=== PATIENT | female | born 1955 | race Caucasian/White ===

== ENCOUNTER 2016-09-03 17:45 | Inpatient (IN) | payer MEDICAID, OTHER ==
--- NOTE | 2016-09-03 18:29 | EDM.PDOC ---
ED HPI GENERAL MEDICAL PROBLEM - General Chief Complaint: General Stated Complaint: LOW HEMOGLOBIN, SOB Time Seen by Provider: 09/03/16 18:20 Source of Information: Reports: Patient History Limitations: Reports: Other (Clinic closed by the time Helena arrived so not able to access clinic records. ) - History of Present Illness INITIAL COMMENTS - FREE TEXT/NARRATIVE: 61 yo female with pHx of chronic anemia had outpatient blood work done today. The provider who ordered these tests was off today and the covering provider did not know the patient so when her Hgb came back at 6.6 she was asked to come to the ED. Was last transfused within the month. Other test results from today's labs include Na 139, K 5.8, BUN 42, glc 131, Cl 99, others on her Chem 12 were wnl's. She denies black or bloody stools. Is perhaps slightly more SOB with exertion than normal otherwise feels fine. Is in a wheelchair most of the time and is on home oxygen. 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) (None) - Related Data Allergies Allergy/AdvReac Type Severity Reaction Status Date / Time levofloxacin Allergy Rash Verified 08/08/16 18:00 Penicillins Allergy Hives Verified 08/06/16 05:20 Sulfa (Sulfonamide Allergy Hives Verified 08/06/16 05:20 Antibiotics) Home Meds: Home Meds Albuterol [Proventil HFA] 2 puff INH Q4H PRN 11/19/13 [History] Glimepiride 4 mg PO BRK 11/19/13 [History] metFORMIN [Glucophage] 1,000 mg PO BIDM #0 tablet 01/22/14 [Rx] Fluticasone Propionate [Flovent HFA 220 MCG] 2 puff INH BID 10/14/14 [History] atorvaSTATin [Lipitor] 40 mg PO WITHDINNER 10/14/14 [History] Gabapentin [Neurontin] 600 mg PO BID@0800,1400 10/21/14 [History] Acetaminophen [Acetaminophen Extra Strength] 1,000 mg PO TID PRN 04/30/15 [ History] Gabapentin [Neurontin] 900 mg PO BEDTIME 04/30/15 [History] Polyethylene Glycol 3350 [MiraLAX] 17 gm PO DAILY PRN 04/30/15 [History] Ipratropium/Albuterol Sulfate [Iprat-Albut 0.5-3(2.5) MG/3 ML] 3 ml IH Q4HR PRN #30 05/08/15 [Rx] Pantoprazole [Protonix] 40 mg PO DAILY 07/17/15 [History] traMADol HCl [Tramadol HCl] 100 mg PO BID 07/17/15 [History] Iron Polysaccharide Complex [Ferrex 150] 150 mg PO TID 09/23/15 [History] Potassium Chloride [Klor-Con 10] 10 meq PO TID #60 tab.er 10/03/15 [Rx] Lisinopril [Prinivil] 2.5 mg PO DAILY 30 Days 02/12/16 [Rx] Metoprolol Succinate [Toprol XL] 12.5 mg PO DAILY 30 Days 02/12/16 [Rx] Furosemide [Lasix] 80 mg PO BID@08,14 03/24/16 [History] [place]-3/DHA/Epa/Fish Oil [Fish Oil 1,000 mg Softgel] 1,000 mg PO DAILY 03/24/16 [History] Spironolactone [Aldactone] 12.5 mg PO DAILY #30 tablet 03/28/16 [Rx] Metolazone 2.5 mg PO MOWEFR 07/30/16 [History] Prednisone [IJD: predniSONE] 20 mg PO BIDMEALS #10 tablet 08/05/16 [Rx] Azithromycin [Zithromax] 250 mg PO DAILY #2 tablet 08/11/16 [Rx] Nitrofurantoin Monohyd/M-Cryst [IJD: Nitrofurantoin [place]-MCR] 100 mg PO BID #16 capsule 08/11/16 [Rx] Prednisone [IJD: predniSONE] 20 mg PO DAILY #7 tablet 08/11/16 [Rx] Past Medical History HEENT History: Reports: None Cardiovascular History: Reports: Heart Failure, High cholesterol, Hypertension, SOB on exertion Respiratory History: Reports: Asthma, COPD, Pneumonia, recurrent, SOB, Other ( see below) Other Respiratory History: Is on hi flow O2 @ 8-10L/NC @ home. Gastrointestinal History: Reports: None Genitourinary History: Reports: Renal calculus Other Genitourinary History: surgery for bladder tumor removal, hx bladder CA. 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 Musculoskeletal History: Reports: Arthritis, Back pain, chronic, Fracture, RA Other Musculoskeletal History: hx fx R wrist & R ankle Neurological History: Reports: Neuropathy, diabetic, Neuropathy, peripheral Psychiatric History: Reports: Eating disorders Endocrine/Metabolic History: Reports: Diabetes, type II, Obesity/BMI 30+, Other (see below) Other Endocrine/Metabolic History: states thyroid problems Hematologic History: Reports: Anemia, Blood transfusion(s), Iron deficiency Immunologic History: Reports: None Oncologic (Cancer) History: Reports: Bladder Dermatologic History: Reports: Other (see below) Other Dermatologic History: fungus under bilat breast - Infectious Disease History Infectious Disease History: Reports: Chicken pox - Past Surgical History Head Surgeries/Procedures: Reports: None HEENT Surgical History: Reports: Adenoidectomy, Oral surgery, Tonsillectomy Cardiovascular Surgical History: Reports: None Respiratory Surgical History: Reports: None GI Surgical History: Reports: None Female Surgical History: Reports: Other (see below) Other Female Surgeries/Procedures: surg for bladder tumor Endocrine Surgical History: Reports: None Musculoskeletal Surgical History: Reports: None Oncologic Surgical History: Reports: None, Other (see below) Other Oncologic Surgeries/Procedures: bladder tumor removed Social & Family History - Family History Family Medical History: Noncontributory HEENT: Reports: Cataract, Hearing impairment, Macular degeneration Cardiac: Reports: None, CAD, Heart failure Respiratory: Reports: None GI: Reports: None : Reports: None OBGYN: Reports: Musculoskeletal: Reports: Arthritis, Back pain, chronic, RA Neurological: Reports: None Psychiatric: Reports: Depression Endocrine/Metabolic: Reports: Diabetes, type II Hematologic: Reports: None Immunologic: Reports: None Dermatologic: Reports: None Oncologic: Reports: Other (see below) Other Oncologic Family History: stomach - Tobacco Use Smoking Status *Q: Former Smoker Years of Tobacco use: 7 Packs/Tins Daily: 1 Used Tobacco, but Quit: Yes Month Tobacco Last Used: Second Hand Smoke Exposure: No - Caffeine Use Caffeine Use: Reports: Soda - Alcohol Use Days Per Week of Alcohol Use: 0 - Recreational Drug Use Recreational Drug Use: No - Living Situation & Occupation Living situation: Reports: single ED ROS GENERAL - Review of Systems Review Of Systems: See Below Constitutional: Reports: malaise, fatigue HEENT: Reports: No symptoms Respiratory: Reports: shortness of breath (with exertion only) Cardiovascular: Reports: No symptoms Endocrine: Reports: no symptoms GI/Abdominal: Reports: No symptoms : Reports: no symptoms Musculoskeletal: Reports: no symptoms Skin: Reports: no symptoms Neurological: Reports: no symptoms Psychiatric: Reports: No symptoms ED EXAM, GENERAL - Physical Exam Exam: See Below Exam Limited By: No limitations General Appearance: alert, WD/WN, no apparent distress Eye Exam: bilateral eye: other (mild conjunctival pallor) Ears: normal external exam, normal canal, hearing grossly normal Ear Exam: bilateral ear: auricle normal, canal normal Nose: normal inspection, normal mucosa, no blood Throat/Mouth: Normal inspection, Normal lips, Normal teeth, Normal oropharynx, Normal voice, No airway compromise Head: atraumatic, normocephalic Neck: normal inspection, supple Respiratory/Chest: no respiratory distress, lungs clear, normal breath sounds, no accessory muscle use Cardiovascular: regular rate, rhythm, no edema GI/Abdominal: normal bowel sounds, soft, non tender, no distention Back Exam: normal inspection Extremities: normal inspection, normal range of motion, non-tender, no pedal edema Neurological: alert, oriented, CN II-XII intact, normal cognition, no motor/ sensory deficits Psychiatric: normal affect, normal mood Skin Exam: Warm, Dry, Intact, No rash, Pallor Lymphatic: no adenopathy Departure - Departure Time of Disposition: 18:55 Disposition: Refer to Observation Condition: fair Clinical Impression: Hyperkalemia Anemia Qualifiers: Anemia type: unspecified type Qualified Code(s): D64.9 - Anemia, unspecified
[2016-09-03] MEDS ORDERED: Enoxaparin 40 MG/0.4 ML Syringe SUBCUT SCH (18:45)
[2016-09-03] MEDS ORDERED: Sodium Chloride 0.9% 1,000 ML IV SCH (18:45)
[2016-09-03] MEDS ORDERED: Polyethylene Glycol 3350 Powder 17 GM Packet PO PRN (18:49)
[2016-09-03] MEDS ORDERED: Metolazone 2.5 MG Tab PO SCH ×2 (19:00→21:00)
[2016-09-03] MEDS ORDERED: Sodium Chloride 0.9% 250 ML IV SCH ×3 (19:00→20:30)
[2016-09-03] MEDS ORDERED: FLUTICASONE PROPIONATE INH SCH (21:00)
[2016-09-03] MEDS: Iron Polysaccharides Complex 150 MG Cap PO SCH (21:47)
[2016-09-03] MEDS: metFORMIN 1,000 MG Tab PO SCH (21:47)
[2016-09-03] MEDS: Nitrofurantoin Monohydrate/Macrocrystalline 100 MG Cap PO SCH (21:48)
[2016-09-03] MEDS: traMADol 50 MG Tab PO SCH (21:49)
[2016-09-03] MEDS: Gabapentin 300 MG Cap PO SCH (21:51)
[2016-09-04] MEDS: Glimepiride 4 MG Tab PO SCH ×2 (00:15→15:12)
[2016-09-04] MEDS: Albuterol/Ipratropium 3.0-0.5 MG/3 ML Neb Soln NEB PRN ×3 (00:15→14:45)
[2016-09-04] MEDS ORDERED: Furosemide 40 MG Tab PO ONE (05:42)
[2016-09-04] MEDS ORDERED: Furosemide 40 MG Tab ONE (05:48)
[2016-09-04] MEDS ORDERED: predniSONE 20 MG Tab PO SCH ×2 (08:00→09:00)
[2016-09-04] MEDS ORDERED: Gabapentin 300 MG Cap PO SCH (08:00)
[2016-09-04] MEDS: Mometasone Furoate HFA 200 mcg/Puff 13 GM Inhaler INH SCH ×2 (08:37→20:55)
[2016-09-04] MEDS ORDERED: Pantoprazole 40 MG Tab.CR PO SCH (09:00)
[2016-09-04] MEDS ORDERED: Metoprolol Succinate 25 MG Tab.ER PO SCH (09:00)
[2016-09-04] MEDS ORDERED: Lidocaine 1% 20 ML MDV ONE (10:54)
[2016-09-04] MEDS ORDERED: Bupivacaine 0.5% 50 ML MDV ONE (10:55)
[2016-09-04] MEDS ORDERED: Ketamine 500 mg/10 ML MDV IV ONE (11:00)
[2016-09-04] MEDS ORDERED: ceFAZolin 1 GM Vial IV ONE (11:00)
[2016-09-04] MEDS ORDERED: Propofol 200 MG/20 ML SDV IV ONE (11:00)
[2016-09-04] MEDS ORDERED: Midazolam 1 MG/ML 2 ML SDV IV ONE (11:00)
[2016-09-04] MEDS ORDERED: Furosemide 20 MG/2 ML VIAL IVPUSH ONE ×2 (12:35→17:45)
[2016-09-04] MEDS: Sodium Chloride 0.9% 10 ML Syringe FLUSH PRN ×4 (14:25→21:22)
[2016-09-04] MEDS: Fish Oil/Omega-3 Fatty Acids 1 Gm Cap PO SCH (15:13)
[2016-09-04] MEDS: Iron Polysaccharides Complex 150 MG Cap PO SCH (15:13)
[2016-09-04] MEDS: Furosemide 80 MG Tab PO SCH (15:13)
[2016-09-04] MEDS: metFORMIN 1,000 MG Tab PO SCH ×2 (15:13→17:24)
[2016-09-04] MEDS: Lisinopril 2.5 MG Tab PO SCH (15:14)
[2016-09-04] MEDS: Nitrofurantoin Monohydrate/Macrocrystalline 100 MG Cap PO SCH (15:14)
[2016-09-04] MEDS: traMADol 50 MG Tab PO SCH (15:15)
--- NOTE | 2016-09-04 15:43 | OR ---
DATE OF OPERATION: 09/04/2016 SURGEON: Lizandro Myers MD PREOPERATIVE DIAGNOSIS: 1. Poor peripheral venous access. 2. Profound anemia. 3. Chronic obstructive pulmonary disease. 4. Congestive heart failure. OPERATION PERFORMED: Placement of Bard port permanent venous access device. INDICATIONS FOR SURGERY: This 61-year-old female with severe COPD has developed profound anemia. Peripheral venous access for blood transfusion is not able to be achieved and as this is likely a problem which will be faced repeatedly, placement of a permanent venous access catheter is planned. FINDINGS: The patient's right cephalic vein in the deltopectoral groove is of satisfactory quality. The catheter is able to be advanced into the superior vena cava without difficulty. PROCEDURE IN DETAIL: The patient was taken to the operating room. She was given intravenous sedation, and oxygen was administered to her via a BiPAP device. The patient was unable to lie flat, so she was positioned in a semi- sitting position. The right upper anterior chest was sterilely prepped and draped. The right infraclavicular region was infiltrated with the Xylocaine/Marcaine mix and a linear incision was made in the right infraclavicular area. Dissection proceeded down onto the deltopectoral groove where exploration of this space identified a cephalic vein is of satisfactory quality. The vein was secured proximally and distally by looping it with 3-0 silk ties. The small branch coming from posteriorly was also secured by looping it with a silk tie. An 8-[place] Bard port implantable port was then selected. The catheter and the tall introducer are irrigated with heparinized saline and then a small venotomy was made in the exposed right cephalic vein. With the help of a vein retractor, the 8-[place] polyurethane single-lumen catheter was able to be inserted into the vein, and then advanced without difficulty. C-arm fluoroscopy was then used to confirmed that the catheter passed into the superior vena cava and fluoroscopy confirmed the catheter appeared to be in satisfactory position, when it was at the 17 cm level at the venotomy. A subcutaneous pocket on the anterior surface of the pectorals major muscle was then made medially from this incision and the catheter was cut to the appropriate length and the port was attached to the catheter and the locking mechanism was secured. The port was then able to have blood easily aspirated and irrigated with heparinized saline. The port was then placed into the subcutaneous pocket and secured in four compass points with interrupted 0 Prolene suture securing it down to the underlying muscle. C-arm fluoroscopy again confirmed satisfactory positioning of the catheter. The wound was irrigated and then closed, approximating the subcutaneous tissue with interrupted 4-0 Vicryl. The skin with running 4-0 Vicryl subcuticular stitch, Steri-Strips and Benzoin. The port was accessed with a needle left in place. Antibiotic ointment and a sterile dressing was placed. The patient was then taken from the operating room in satisfactory condition. ESTIMATED BLOOD LOSS: 25 mL. COMPLICATIONS: None. PROGNOSIS: Immediate good remote guarded. /[id number] KOFFI/ROSIE
[2016-09-04] MEDS ORDERED: Sodium Chloride 0.9% 250 ML IV SCH (16:00)
--- NOTE | 2016-09-04 16:09 | CONS ---
DATE OF CONSULTATION: 09/03/2016 This 61-year-old female with severe COPD and CHF has been admitted today with profound anemia. She had hemoglobin of 6.4. Blood transfusion has been recommended, but peripheral venous access has been unable to be achieved. Multiple attempts from the nursing and anesthesia staff have been tried and a satisfactory IV cannot be achieved peripherally. This patient has a history of recurring problems with anemia. She required blood transfusions in the past and it is likely that she will require these again in the future. Options for venous access are reviewed and discussed with the patient. Placement of a central line is an option; however, since this appears to be recurring problem, and the patient has terrible peripheral veins. A permanent device which can be repeatedly accessed is felt to be a better option for her. I have recommended to her that we would place a Bard port permanent venous access device, which will provide her with the intravenous access necessary now and in the future, and the patient agrees to this. I reviewed the procedure with the patient. Discussed indications and options as well as risks of the procedure and the patient agrees to proceed. This will be scheduled for tomorrow morning. /[id number] KOFFI/ROSIE
[2016-09-04] MEDS: traMADol 50 MG Tab PO PRN ×2 (17:16→23:04)
[2016-09-04] MEDS: Heparin Sodium 10 Units/ML 5 ML Syringe FLUSH PRN ×2 (20:30→21:21)
[2016-09-04] MEDS: Enoxaparin 40 MG/0.4 ML Syringe SUBCUT SCH (20:55)
[2016-09-04] MEDS: Gabapentin 300 MG Cap PO SCH (22:20)
[2016-09-05] MEDS: traMADol 50 MG Tab PO PRN ×4 (05:06→23:09)
[2016-09-05] MEDS: Albuterol/Ipratropium 3.0-0.5 MG/3 ML Neb Soln NEB PRN (07:27)
[2016-09-05] MEDS: metFORMIN 1,000 MG Tab PO SCH (07:58)
[2016-09-05] MEDS: Sodium Chloride 0.9% 10 ML Syringe FLUSH PRN ×5 (08:03→19:24)
[2016-09-05] MEDS: Heparin Sodium 10 Units/ML 5 ML Syringe FLUSH PRN ×3 (08:03→19:25)
[2016-09-05] MEDS ORDERED: Acetaminophen 500 MG Tab PO ONE (10:15)
--- NOTE | 2016-09-05 10:45 | PN ---
DATE SEEN: 09/05/2016 Helena Camargo is a 61-year-old female, admitted with complicated anemia. Hemoglobin had fallen to 6.8. Two units of blood were given yesterday after IV access was placed and a central line per Dr. Myers. Doing well in that regard. Profound hypoxia when sleep, Pickwickian syndrome, BiPAP recommended. Patient deferred, high-dose flow O2 has been required. Hemoglobin after transfusion 8.1 and last evening, 8.1 this morning. Two units to be given today as planned, hemoglobin and hematocrit to follow accordingly. She is otherwise been doing well and had a pretty restful night. Generalized back pain particularly not controlled, on tramadol 100 mg q.i.d., Tylenol will be added 1000 mg t.i.d. Her GI workup discussed, patient deferred colonoscopy. PHYSICAL EXAMINATION: VITAL SIGNS: 102.7, 39 kilos, 36.8, 91 is the pulse, 114/56, 22 is the respiration, 88% on 12 L. GENERAL: Obvious obese, Pickwickian looking. NECK: Benign. Thyroid small. Short neck. CHEST: Decreased breath sounds both bases. HEART: Distant heart sounds without ectopy or murmur. ABDOMEN: Rotund, obese. ASSESSMENT: 1. Anemia complicated, source uncertain. 2. Transfusions in place, 2 units, hemoglobin 8.1, 2 units to follow, hemoglobin follow. 3. Respiratory care in place. Discharge planning and social services counselor to be involved. /[id number] HEMALATHA/ROSIE
[2016-09-05] MEDS ORDERED: Furosemide 20 MG/2 ML VIAL IVPUSH ONE (13:45)
[2016-09-05] MEDS: Acetaminophen 500 MG Tab PO SCH ×2 (13:59→20:44)
[2016-09-05] MEDS: metFORMIN 500 MG Tab.ER PO SCH (17:44)
[2016-09-05] MEDS ORDERED: metFORMIN 500 MG Tab ONE (17:47)
[2016-09-05] MEDS ORDERED: metFORMIN 500 MG Tab.ER ONE (17:52)
[2016-09-05] MEDS ORDERED: Glimepiride 2 MG Tab ONE (17:57)
[2016-09-05] MEDS ORDERED: Glimepiride 2 MG Tab PO SCH (18:00)
[2016-09-05] MEDS: Ondansetron 4 MG Tab.DIS PO PRN (18:36)
[2016-09-05] MEDS: Enoxaparin 40 MG/0.4 ML Syringe SUBCUT SCH (20:43)
[2016-09-06] MEDS: Pantoprazole 40 MG Tab.CR PO SCH (05:13)
[2016-09-06] MEDS: traMADol 50 MG Tab PO PRN ×3 (05:14→19:25)
[2016-09-06] MEDS ORDERED: Metolazone 2.5 MG Tab PO SCH (06:00)
[2016-09-06] MEDS: Albuterol/Ipratropium 3.0-0.5 MG/3 ML Neb Soln NEB PRN ×2 (07:23→13:09)
--- NOTE | 2016-09-06 07:37 | PCM.PN ---
- General Info Date of Service: 09/06/16 Admission Dx/Problem (Free Text): Patient states she's feeling okay today except for she has some right rib pain. She states when she went to the OR she felt a little twinge or crack when she went to the bed. She is having some pain in the right ribs. She always is short of breath and that's different. She has history of anemia she does not know the cause. She's had transfusions in the past. She denies dizziness, chest pain, leg swelling. - Patient Data Vitals - most recent: Last Vital Signs Temp 98.1 F 09/06/16 05:00 Pulse 99 09/06/16 05:00 Resp 20 09/06/16 05:00 BP 110/52 L 09/06/16 05:00 Pulse Ox 91 L 09/06/16 05:00 Weight - most recent: 227 lb 11.2 oz I&O - last 24 hours: Intake & Output 09/05/16 09/06/16 09/06/16 22:59 06:59 14:59 Intake Total 540 300 Output Total 750 600 Balance -210 -300 Lab Results last 24 hrs: Laboratory Results - last 24 hr 09/05/16 09/05/16 09/05/16 Range/Units 08:00 12:03 16:59 WBC 7.7 (4.5-12.0) X10-3/uL RBC 2.82 L (3.23-5.20) x10(6)uL Hgb 8.1 L (11.5-15.5) g/dL Hct 24.6 L (30.0-51.3) % MCV 87.3 (80-96) fL MCH 28.7 (27.7-33.6) pg MCHC 32.8 (32.2-35.4) g/dL RDW 18.3 H (11.5-15.5) % Plt Count 301 (125-369) X10(3)uL MPV 10.0 (7.4-10.4) fL Neut % (Auto) 72.7 (46-82) % Lymph % (Auto) 17.1 (13-37) % [place] % (Auto) 7.0 (4-12) % Eos % (Auto) 1 (1.0-5.0) % Baso % (Auto) 2 (0-2) % Neut # 5.7 (1.6-8.3) # Lymph # 1.3 (0.6-5.0) # [place] # 0.5 (0.0-1.3) # Eos # 0.1 (0.0-0.8) # Baso # 0.1 (0.0-0.2) # POC Glucose 117 H 123 H (80-116) mg/dL Vitamin B12 (211-911) pg/mL 09/05/16 09/05/16 09/06/16 Range/Units 19:15 19:15 07:26 WBC (4.5-12.0) X10-3/uL RBC (3.23-5.20) x10(6)uL Hgb 9.8 L (11.5-15.5) g/dL Hct 30.9 (30.0-51.3) % MCV (80-96) fL MCH (27.7-33.6) pg MCHC (32.2-35.4) g/dL RDW (11.5-15.5) % Plt Count (125-369) X10(3)uL MPV (7.4-10.4) fL Neut % (Auto) (46-82) % Lymph % (Auto) (13-37) % [place] % (Auto) (4-12) % Eos % (Auto) (1.0-5.0) % Baso % (Auto) (0-2) % Neut # (1.6-8.3) # Lymph # (0.6-5.0) # [place] # (0.0-1.3) # Eos # (0.0-0.8) # Baso # (0.0-0.2) # POC Glucose 73 L (80-116) mg/dL Vitamin B12 421.0 (211-911) pg/mL Med Orders - Current: Current Medications Acetaminophen (Tylenol Extra Strength) 1,000 mg PO TID PRN PRN Reason: Pain Acetaminophen (Tylenol Extra Strength) 1,000 mg PO TID FRANSISCA Last Admin: 09/05/16 20:44 Dose: 1,000 mg Albuterol (Ventolin Hfa) 0 gm INH Q4H PRN PRN Reason: Shortness of Breath Albuterol/Ipratropium (Duoneb 3.0-0.5 Mg/3 Ml) 3 ml NEB Q6H PRN PRN Reason: Shortness of Breath Last Admin: 09/06/16 07:23 Dose: 3 ml Atorvastatin Calcium (Lipitor) 40 mg PO WITHDINNER [facility] Enoxaparin Sodium (Lovenox) 40 mg SUBCUT DAILY@2100 [facility] Last Admin: 09/05/16 20:43 Dose: 40 mg Fish Oil (Fish Oil) 1 gm PO DAILY [facility] Last Admin: 09/04/16 15:13 Dose: Not Given Furosemide (Lasix) 80 mg PO BID@08,14 [facility] Last Admin: 09/04/16 15:13 Dose: Not Given Furosemide (Lasix) 20 mg IVPUSH DAILY [facility] Glimepiride (Glimepiride) 4 mg PO BIDMEALS [facility] Heparin Sodium (Porcine) (Heparin Lock Flush 10 Units/Ml) 50 unit FLUSH ASDIRECTED PRN PRN Reason: port-a cath flush Last Admin: 09/05/16 19:25 Dose: 50 unit Sodium Chloride (Normal Saline) 250 mls @ 100 mls/hr IV ASDIRECTED [facility] Last Admin: 09/04/16 14:30 Dose: 100 mls/hr Lisinopril (Prinivil) 2.5 mg PO DAILY [facility] Metformin HCl (Glucophage Xr) 1,000 mg PO BIDMEALS [facility] Last Admin: 09/05/16 17:44 Dose: 1,000 mg Ondansetron HCl (Zofran Odt) 4 mg PO Q4H PRN PRN Reason: Nausea/Vomiting Last Admin: 09/05/16 18:36 Dose: 4 mg Pantoprazole Sodium (Protonix) 40 mg PO 0600 [facility] Last Admin: 09/06/16 05:13 Dose: 40 mg Polysaccharide Iron Complex (Ferrex 150) 150 mg PO TID [facility] Last Admin: 09/04/16 15:13 Dose: Not Given Sodium Chloride (Saline Flush) 10 ml FLUSH ASDIRECTED PRN PRN Reason: Keep Vein Open Last Admin: 09/05/16 19:24 Dose: 10 ml Tramadol HCl (Ultram) 100 mg PO Q6H PRN PRN Reason: Pain Last Admin: 09/06/16 05:14 Dose: 100 mg Discontinued Medications Acetaminophen (Tylenol Extra Strength) 1,000 mg PO ONETIME ONE Stop: 09/05/16 10:16 Last Admin: 09/05/16 10:07 Dose: 1,000 mg Bupivacaine HCl (Marcaine 0.5%) 10 ml .XX .STK-MED ONE Stop: 09/04/16 10:56 Last Admin: 09/04/16 10:55 Dose: 10 ml Enoxaparin Sodium (Lovenox) 40 mg SUBCUT DAILY [facility] Last Admin: 09/03/16 21:47 Dose: 40 mg Furosemide (Lasix) 40 mg PO ONETIME ONE Stop: 09/04/16 05:43 Last Admin: 09/04/16 05:53 Dose: 40 mg Furosemide (Lasix) Confirm Administered Dose 40 mg .ROUTE .STK-MED ONE Stop: 09/04/16 05:49 Last Admin: 09/04/16 05:52 Dose: Not Given Furosemide (Lasix) 20 mg IVPUSH ASDIRECTED ONE Stop: 09/04/16 12:36 Last Admin: 09/04/16 17:38 Dose: Not Given Furosemide (Lasix) 20 mg IVPUSH ASDIRECTED ONE Stop: 09/04/16 17:46 Last Admin: 09/04/16 17:37 Dose: 20 mg Furosemide (Lasix) 20 mg IVPUSH ONETIME ONE Stop: 09/05/16 13:46 Last Admin: 09/05/16 13:59 Dose: 20 mg Gabapentin (Neurontin) 600 mg PO BID@0800,1400 [facility] Last Admin: 09/04/16 15:13 Dose: Not Given Gabapentin (Neurontin) 900 mg PO BEDTIME [facility] Last Admin: 09/04/16 22:20 Dose: 900 mg Glimepiride (Glimepiride) 4 mg PO BRK [facility] Last Admin: 09/04/16 15:12 Dose: Not Given Glimepiride (Amaryl) 4 mg PO BIDMEALS [facility] Last Admin: 09/05/16 17:54 Dose: 4 mg Glimepiride (Amaryl) Confirm Administered Dose 2 mg .ROUTE .STK-MED ONE Stop: 09/05/16 17:58 Last Admin: 09/05/16 19:22 Dose: Not Given Heparin Sodium (Porcine) (Heparin Lock Flush 100 Units/Ml Syringe) 10 units .XX .STK-MED ONE Stop: 09/04/16 10:54 Last Admin: 09/04/16 10:53 Dose: 10 units Sodium Chloride (Normal Saline) 1,000 mls @ 50 mls/hr IV ASDIRECTED [facility] Last Admin: 09/03/16 19:16 Dose: 50 mls/hr Sodium Chloride (Normal Saline) 250 mls @ 100 mls/hr IV ASDIRECTED FRANSISCA Sodium Chloride (Normal Saline) 250 mls @ 100 mls/hr IV ASDIRECTED FRANSISCA Sodium Chloride (Normal Saline) 250 mls @ 100 mls/hr IV ASDIRECTED FRANSISCA Lidocaine HCl (Xylocaine 1%) 10 ml .XX .STK-MED ONE Stop: 09/04/16 10:55 Last Admin: 09/04/16 10:54 Dose: 10 ml Lisinopril (Prinivil) 2.5 mg PO DAILY [facility] Last Admin: 09/04/16 15:14 Dose: Not Given Metformin HCl (Glucophage) [facility] [place] Admin: 09/05/16 07:58 Dose: 1,000 mg Metformin HCl (Glucophage) Confirm Administered Dose 500 mg .ROUTE .STK-MED ONE Stop: 09/05/16 17:48 Last Admin: 09/05/16 19:22 Dose: Not Given Metformin HCl (Glucophage Xr) Confirm Administered Dose 500 mg .ROUTE .K-MED ONE Stop: 09/05/16 17:53 Last Admin: 09/05/16 19:21 Dose: Not Given Metolazone (Zaroxolyn) 2.5 mg PO MOWEFR [facility] Last Admin: 09/04/16 01:22 Dose: Not Given Metolazone (Zaroxolyn) 2.5 mg PO MOWEFR [facility] Last Admin: 09/03/16 21:51 Dose: 2.5 mg Metolazone (Zaroxolyn) 2.5 mg PO MoWeFr@0600 [facility] Metoprolol Succinate (Toprol Xl) 12.5 mg PO DAILY [facility] Last Admin: 09/04/16 15:14 Dose: Not Given Mometasone Furoate (Asmanex Hfa) 0 gm INH BID [facility] Last Admin: 09/04/16 20:55 Dose: 2 applic Nitrofurantoin Macrocrystals (Macrobid) 100 mg PO BID [facility] Last Admin: 09/04/16 15:14 Dose: Not Given Non-Formulary Medication (Fluticasone Propionate [Flovent Hfa 220 Mcg]) 2 puff INH BID [facility] Last Admin: 09/04/16 00:15 Dose: Not Given Pantoprazole Sodium (Protonix) 40 mg PO DAILY [facility] Last Admin: 09/04/16 15:14 Dose: Not Given Polyethylene Glycol (Miralax) 17 gm PO DAILY PRN PRN Reason: Constipation Prednisone (Prednisone) 20 mg PO BIDMEALS [facility] Prednisone (Prednisone) 20 mg PO DAILY [facility] Tramadol HCl (Ultram) 100 mg PO BID [facility] Last Admin: 09/04/16 15:15 Dose: Not Given Tramadol HCl (Ultram) 100 mg PO Q6H PRN PRN Reason: Pain Last Admin: 09/05/16 05:06 Dose: 100 mg - Exam General: alert, oriented, cooperative Neck: supple Lungs: Clear to auscultation, Normal respiratory effort. No: Crackles, Rales, Rhonchi Cardiovascular: regular rate, regular rhythm, no murmurs Extremities: no edema - Problem List & Annotations (1) Anemia SNOMED Code(s): 144262925 Code(s): D64.9 - ANEMIA, UNSPECIFIED Status: Acute Current Visit: Yes Qualifiers: Anemia type: unspecified type Qualified Code(s): D64.9 - Anemia, unspecified (2) CHF (congestive heart failure) SNOMED Code(s): 83711404 Code(s): I50.9 - HEART FAILURE, UNSPECIFIED Status: Acute Priority: High Current Visit: No Qualifiers: Congestive heart failure chronicity: chronic Annotation/Comment:: On oral diuretics, dieuresing well. CXR improved. Had long discussion regarding fluid restriction, monitoring weights and adding in diuretics if weight increases. (3) COPD (chronic obstructive pulmonary disease) SNOMED Code(s): 91835226 Code(s): J44.9 - CHRONIC OBSTRUCTIVE PULMONARY DISEASE, UNSPECIFIED Status : Acute Current Visit: No Qualifiers: COPD type: unspecified COPD Qualified Code(s): J44.9 - Chronic obstructive pulmonary disease, unspecified - Problem List Review Problem List Initiated/Reviewed/Updated: Yes - My Orders Last 24 Hours: My Active Orders 09/06/16 07:32 HEMOGLOBIN/HEMATOCRIT,HH [HEME] Routine - Plan Plan:: 1. Recheck hemoglobin/hematocrit today. 2. Transfer patient to the floor and out of ICU. 3. Waiting for iron studies to be done. 4. I told the patient she should have a bone marrow done in the future. She refuses.
[2016-09-06] MEDS: Glimepiride 4 MG Tab PO SCH ×3 (08:41→18:30)
[2016-09-06] MEDS: Acetaminophen 500 MG Tab PO SCH ×3 (08:41→20:59)
[2016-09-06] MEDS: metFORMIN 500 MG Tab.ER PO SCH ×2 (08:41→18:30)
[2016-09-06] MEDS: Lisinopril 2.5 MG Tab PO SCH ×2 (08:41→09:00)
--- NOTE | 2016-09-06 08:56 | HP ---
ADMISSION DATE: 09/03/2016 HISTORY OF PRESENT ILLNESS: Helena Camargo is a 61-year-old single female, who was seen at [facility]. Troublesome shortness of breath, lethargy, weakness, home health provided testing. Hemoglobin markedly low. Admission hospitalist indicated through [facility]. HOME MEDICATIONS: Please see med recon list. PAST MEDICAL HISTORY: Significant for previous bladder carcinoma under surveillance, tonsillectomy and adenoidectomy as a child. Chronic illnesses include COPD, hypertension, type 2 diabetes mellitus, neuropathic lower extremity, neuropathy, and marked obesity. No other operative procedures, hospitalizations, unusual childhood diseases, major injuries, or fractures. 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 Quit smoking in 2008. Nil alcohol consumption. No illicit drug use. FAMILY HISTORY: Positive for diabetes mellitus, early heart disease. No inheritable cancers. REVIEW OF SYSTEMS: CONSTITUTIONAL: Feeling poorly and weak. HEENT: Eyes: Sees well with correction. Ears: Hears well with some difficulty in crowds. Oropharynx poor dentition. CHEST: No cough, wheeze, or congestion. Cardiovascular: Denies chest pain, palpitations, or syncope. GASTROINTESTINAL: Recurrent blood in stools, previous non workup. SKIN: No open sores or lesions. ENDOCRINE: No excessive thirst or urination. No diabetes. PHYSICAL EXAMINATION: VITAL SIGNS: Stable. 36.9, 82, 91/53, 22, 98% on 2 L. IMAGING: Chest x-ray none noted. LABORATORY STUDIES: Occult blood negative. ASSESSMENT: 1. Complicated anemia, hemoglobin 6.4, recurrent rectal bleeding. 2. Multiple medical problems, clearly defined. PLAN: Intravenous line has been unobtainable, blood has been ordered, we will proceed with intervention and care, close observation, laboratory studies to follow. /[id number] HEMALATHA/ROSIE
[2016-09-06] MEDS: Mometasone Furoate HFA 200 mcg/Puff 13 GM Inhaler INH SCH (09:00)
[2016-09-06] MEDS ORDERED: Furosemide 20 MG/2 ML VIAL IVPUSH SCH (09:00)
[2016-09-06] MEDS: Ondansetron 4 MG Tab.DIS PO PRN ×3 (11:51→20:39)
--- NOTE | 2016-09-06 11:57 | CR ---
INDICATION: Line positioning. COMPARISON: No pertinent priors. CHEST, SINGLE VIEW: Right side [id number] is present. The tip extends toward the expected location of the distal SVC near the junction with the right atrium. Otherwise, evaluation of the lungs is limited to overlying tissues, but the heart appears prominent size, and there is some nodular opacity right hilar region. Findings could be better assessed with follow-up to the chest x- ray or CT if it would change clinical management. IMPRESSION: Right side [id number] is present with tip at distal SVC near the junction with the right atrium. MTDD
[2016-09-06] MEDS: Iron Polysaccharides Complex 150 MG Cap PO SCH ×2 (14:03→21:00)
[2016-09-06] MEDS: Furosemide 80 MG Tab PO SCH (14:03)
[2016-09-06] MEDS: Heparin Sodium 10 Units/ML 5 ML Syringe FLUSH PRN (15:36)
[2016-09-06] MEDS: Sodium Chloride 0.9% 10 ML Syringe FLUSH PRN (15:36)
[2016-09-06] MEDS: atorvaSTATin 40 MG Tab PO SCH (18:31)
[2016-09-06] MEDS: Enoxaparin 40 MG/0.4 ML Syringe SUBCUT SCH (21:00)
[2016-09-07] MEDS: traMADol 50 MG Tab PO PRN ×3 (03:28→17:31)
[2016-09-07] MEDS: Acetaminophen 500 MG Tab PO PRN (06:04)
[2016-09-07] MEDS: Pantoprazole 40 MG Tab.CR PO SCH (06:04)
[2016-09-07] MEDS: Glimepiride 4 MG Tab PO SCH (08:19)
[2016-09-07] MEDS: metFORMIN 500 MG Tab.ER PO SCH (08:19)
[2016-09-07] MEDS: Furosemide 80 MG Tab PO SCH ×2 (08:20→14:12)
[2016-09-07] MEDS: Fish Oil/Omega-3 Fatty Acids 1 Gm Cap PO SCH (08:21)
[2016-09-07] MEDS: Iron Polysaccharides Complex 150 MG Cap PO SCH ×3 (08:21→21:22)
[2016-09-07] MEDS ORDERED: Furosemide 40 MG Tab PO ONE (08:27)
[2016-09-07] MEDS: Lisinopril 2.5 MG Tab PO SCH (08:29)
[2016-09-07] MEDS: Acetaminophen 500 MG Tab PO SCH ×3 (08:30→21:23)
--- NOTE | 2016-09-07 09:10 | PCM.PN ---
- General Info Date of Service: 09/07/16 Admission Dx/Problem (Free Text): Patient states that her breathing is a worse today. She has some abdominal discomfort last night. She has some right upper quadrant abdominal discomfort. She said BMs with no blood according to her. No nausea or vomiting. No coughing or fevers. - Patient Data Vitals - most recent: Last Vital Signs Temp 97.3 F 09/07/16 07:45 Pulse 86 09/07/16 07:45 Resp 20 09/07/16 07:45 BP 83/44 L 09/07/16 08:37 Pulse Ox 90 L 09/07/16 07:45 Weight - most recent: 226 lb 1.6 oz I&O - last 24 hours: Intake & Output 09/06/16 09/07/16 09/07/16 22:59 06:59 14:59 Intake Total 100 100 100 Output Total 475 100 Balance -375 0 100 Lab Results last 24 hrs: Laboratory Results - last 24 hr 09/06/16 09/06/16 09/07/16 Range/Units 11:27 18:25 05:54 Hgb (11.5-15.5) g/dL Hct (30.0-51.3) % POC Glucose 172 H D 116 32 L* D (80-116) mg/dL 09/07/16 09/07/16 09/07/16 Range/Units 06:30 06:48 07:34 Hgb 8.5 L (11.5-15.5) g/dL Hct 26.6 L (30.0-51.3) % POC Glucose 54 L 87 (80-116) mg/dL Med Orders - Current: Current Medications Acetaminophen (Tylenol Extra Strength) 1,000 mg PO TID PRN PRN Reason: Pain Last Admin: 09/07/16 06:04 Dose: 1,000 mg Acetaminophen (Tylenol Extra Strength) 1,000 mg PO TID FRANSISCA Last Admin: 09/07/16 08:30 Dose: 1,000 mg Albuterol (Ventolin Hfa) 0 gm INH Q4H PRN PRN Reason: Shortness of Breath Albuterol/Ipratropium (Duoneb 3.0-0.5 Mg/3 Ml) 3 ml NEB Q6H PRN PRN Reason: Shortness of Breath Last Admin: 09/06/16 13:09 Dose: 3 ml Atorvastatin Calcium (Lipitor) 40 mg PO WITHDINNER [facility] Last Admin: 09/06/16 18:31 Dose: 40 mg Enoxaparin Sodium (Lovenox) 40 mg SUBCUT DAILY@2100 [facility] Last Admin: 09/06/16 21:00 Dose: 40 mg Fish Oil (Fish Oil) 1 gm PO DAILY [facility] Last Admin: 09/07/16 08:21 Dose: 1 gm Furosemide (Lasix) 80 mg PO BID@08,14 [facility] Last Admin: 09/07/16 08:20 Dose: Not Given Glimepiride (Glimepiride) 4 mg PO BIDMEALS [facility] Last Admin: 09/07/16 08:19 Dose: 4 mg Heparin Sodium (Porcine) (Heparin Lock Flush 10 Units/Ml) 50 unit FLUSH ASDIRECTED PRN PRN Reason: port-a cath flush Last Admin: 09/06/16 15:36 Dose: 50 unit Sodium Chloride (Normal Saline) 250 mls @ 100 mls/hr IV ASDIRECTED [facility] Last Admin: 09/04/16 14:30 Dose: 100 mls/hr Lisinopril (Prinivil) 2.5 mg PO DAILY [facility] Last Admin: 09/07/16 08:29 Dose: 2.5 mg Metformin HCl (Glucophage Xr) 1,000 mg PO BIDMEALS [facility] Last Admin: 09/07/16 08:19 Dose: 1,000 mg Ondansetron HCl (Zofran Odt) 4 mg PO Q4H PRN PRN Reason: Nausea/Vomiting Last Admin: 09/06/16 20:39 Dose: 4 mg Pantoprazole Sodium (Protonix) 40 mg PO 0600 [facility] Last Admin: 09/07/16 06:04 Dose: 40 mg Polysaccharide Iron Complex (Ferrex 150) 150 mg PO TID [facility] Last Admin: 09/07/16 08:21 Dose: 150 mg Sodium Chloride (Saline Flush) 10 ml FLUSH ASDIRECTED PRN PRN Reason: Keep Vein Open Last Admin: 09/06/16 15:36 Dose: 10 ml Tramadol HCl (Ultram) 100 mg PO Q6H PRN PRN Reason: Pain Last Admin: 09/07/16 03:28 Dose: 100 mg Discontinued Medications Acetaminophen (Tylenol Extra Strength) 1,000 mg PO ONETIME ONE Stop: 09/05/16 10:16 Last Admin: 09/05/16 10:07 Dose: 1,000 mg Bupivacaine HCl (Marcaine 0.5%) 10 ml .XX .STK-MED ONE Stop: 09/04/16 10:56 Last Admin: 09/04/16 10:55 Dose: 10 ml Enoxaparin Sodium (Lovenox) 40 mg SUBCUT DAILY [facility] Last Admin: 09/03/16 21:47 Dose: 40 mg Furosemide (Lasix) 40 mg PO ONETIME ONE Stop: 09/04/16 05:43 Last Admin: 09/04/16 05:53 Dose: 40 mg Furosemide (Lasix) Confirm Administered Dose 40 mg .ROUTE .[facility] ONE Stop: 09/04/16 05:49 Last Admin: 09/04/16 05:52 Dose: Not Given Furosemide (Lasix) 20 mg IVPUSH ASDIRECTED ONE Stop: 09/04/16 12:36 Last Admin: 09/04/16 17:38 Dose: Not Given Furosemide (Lasix) 20 mg IVPUSH ASDIRECTED ONE Stop: 09/04/16 17:46 Last Admin: 09/04/16 17:37 Dose: 20 mg Furosemide (Lasix) 20 mg IVPUSH DAILY [facility] Last Admin: 09/06/16 08:40 Dose: 20 mg Furosemide (Lasix) 20 mg IVPUSH ONETIME ONE Stop: 09/05/16 13:46 Last Admin: 09/05/16 13:59 Dose: 20 mg Furosemide (Lasix) 40 mg PO ONETIME ONE Stop: 09/07/16 08:28 Last Admin: 09/07/16 08:34 Dose: 40 mg Gabapentin (Neurontin) 600 mg PO BID@0800,1400 [facility] Last Admin: 09/04/16 15:13 Dose: Not Given Gabapentin (Neurontin) 900 mg PO BEDTIME [facility] Last Admin: 09/04/16 22:20 Dose: 900 mg Glimepiride (Glimepiride) 4 mg PO BRK [facility] Last Admin: 09/06/16 09:00 Dose: Not Given Glimepiride (Amaryl) 4 mg PO BIDMEALS [facility] Last Admin: 09/05/16 17:54 Dose: 4 mg Glimepiride (Amaryl) Confirm Administered Dose 2 mg .ROUTE .STK-MED ONE Stop: 09/05/16 17:58 Last Admin: 09/05/16 19:22 Dose: Not Given Heparin Sodium (Porcine) (Heparin Lock Flush 100 Units/Ml Syringe) 10 units .XX .[facility] ONE Stop: 09/04/16 10:54 Last Admin: 09/04/16 10:53 Dose: 10 units Sodium Chloride (Normal Saline) 1,000 mls @ 50 mls/hr IV ASDIRECTED [facility] Last Admin: 09/03/16 19:16 Dose: 50 mls/hr Sodium Chloride (Normal Saline) 250 mls @ 100 mls/hr IV ASDIRECTED FRANSISCA Sodium Chloride (Normal Saline) 250 mls @ 100 mls/hr IV ASDIRECTED FRANSISCA Sodium Chloride (Normal Saline) 250 mls @ 100 mls/hr IV ASDIRECTED FRANSISCA Lidocaine HCl (Xylocaine 1%) 10 ml .XX .[facility] ONE Stop: 09/04/16 10:55 Last Admin: 09/04/16 10:54 Dose: 10 ml Lisinopril (Prinivil) 2.5 mg PO DAILY [facility] Last Admin: 09/06/16 09:00 Dose: Not Given Metformin HCl (Glucophage) 1,000 mg PO BIDM [facility] Last Admin: 09/05/16 07:58 Dose: 1,000 mg Metformin HCl (Glucophage) Confirm Administered Dose 500 mg .ROUTE .[facility] ONE Stop: 09/05/16 17:48 Last Admin: 09/05/16 19:22 Dose: Not Given Metformin HCl (Glucophage Xr) Confirm Administered Dose 500 mg .ROUTE .[facility] ONE Stop: 09/05/16 17:53 Last Admin: 09/05/16 19:21 Dose: Not Given Metolazone (Zaroxolyn) 2.5 mg PO MOWEFR [facility] Last Admin: 09/04/16 01:22 Dose: Not Given Metolazone (Zaroxolyn) 2.5 mg PO MOWEFR [facility] Last Admin: 09/03/16 21:51 Dose: 2.5 mg Metolazone (Zaroxolyn) 2.5 mg PO MoWeFr@0600 [facility] Metoprolol Succinate (Toprol Xl) 12.5 mg PO DAILY [facility] Last Admin: 09/04/16 15:14 Dose: Not Given Mometasone Furoate (Asmanex Hfa) 0 gm INH BID [facility] Last Admin: 09/06/16 09:00 Dose: Not Given Nitrofurantoin Macrocrystals (Macrobid) 100 mg PO BID [facility] Last Admin: 09/04/16 15:14 Dose: Not Given Non-Formulary Medication (Fluticasone Propionate [Flovent Hfa 220 Mcg]) 2 puff INH BID [facility] Last Admin: 09/04/16 00:15 Dose: Not Given Pantoprazole Sodium (Protonix) 40 mg PO DAILY [facility] Last Admin: 09/04/16 15:14 Dose: Not Given Polyethylene Glycol (Miralax) 17 gm PO DAILY PRN PRN Reason: Constipation [facility] Prednisone (Prednisone) 20 mg PO DAILY [facility] Tramadol HCl (Ultram) 100 mg PO BID [facility] Last Admin: 09/04/16 15:15 Dose: Not Given Tramadol HCl (Ultram) 100 mg PO Q6H PRN PRN Reason: Pain Last Admin: 09/05/16 05:06 Dose: 100 mg - Exam General: alert, oriented, cooperative Neck: supple Lungs: Clear to auscultation, Normal respiratory effort Cardiovascular: regular rate, regular rhythm, no murmurs Abdomen: bowel sounds present, soft, no tenderness, no distension. No: rebound , guarding, tenderness, distension Extremities: no edema - Problem List & Annotations (1) Anemia SNOMED Code(s): 781868891 Code(s): D64.9 - ANEMIA, UNSPECIFIED Status: Acute Current Visit: Yes Qualifiers: Anemia type: unspecified type Qualified Code(s): D64.9 - Anemia, unspecified (2) CHF (congestive heart failure) SNOMED Code(s): 02577185 Code(s): I50.9 - HEART FAILURE, UNSPECIFIED Status: Acute Priority: High Current Visit: No Qualifiers: Congestive heart failure chronicity: chronic Annotation/Comment:: On oral diuretics, dieuresing well. CXR improved. Had long discussion regarding fluid restriction, monitoring weights and adding in diuretics if weight increases. (3) COPD (chronic obstructive pulmonary disease) SNOMED Code(s): 73510797 Code(s): J44.9 - CHRONIC OBSTRUCTIVE PULMONARY DISEASE, UNSPECIFIED Status : Acute Current Visit: No Qualifiers: COPD type: unspecified COPD Qualified Code(s): J44.9 - Chronic obstructive pulmonary disease, unspecified - Problem List Review Problem List Initiated/Reviewed/Updated: Yes - My Orders Last 24 Hours: My Active Orders 09/06/16 09:40 Consult to Occupational Therapy [OT Evaluation and Treatment] [CONS] Routine Consult to Physical Therapy [PT Evaluation and Treatment] [CONS] Routine - Plan Plan:: 1. Give 2 more units of blood today. 2. Continue PT/OT. 3. H&H in a.m. 4. Discussed the condition with the patient. She refuses colonoscopy also. She refuses any bowel exam. She states she had an EGD about a year ago by Dr. Camargo and that was negative.
[2016-09-07] MEDS ORDERED: Sodium Chloride 0.9% 250 ML IV SCH (09:15)
[2016-09-07] MEDS ORDERED: Furosemide 20 MG/2 ML VIAL IVPUSH ONE (13:00)
[2016-09-07] MEDS ORDERED: 50% Dextrose in Water 50 ML Syringe IVPUSH ONE ×2 (14:07→16:41)
[2016-09-07] MEDS: Sodium Chloride 0.9% 10 ML Syringe FLUSH PRN ×3 (14:13→21:28)
[2016-09-07 16:11] LABS: UNSATURATED IRON BIND CAPACITY 247 ug/dL (112-347)
--- NOTE | 2016-09-07 18:40 | PCM.PN ---
- General Info Date of Service: 09/07/16 Admission Dx/Problem (Free Text): Patient had low blood sugars this afternoon of 24 the 70-24. She was given or issues and dextrose. She said she felt little shaky but not so bad. This afternoon she states she moved and she felt a snap on her right side has been having back pain since then. Breathing is about the same her she's always short of breath that has not changed it's not worse. No coughing, fevers or chills. She's had the pain in the right ribs. She states it started when she was going over to the [facility] in the [place]. - Patient Data Vitals - most recent: Last Vital Signs Temp 97.8 F 09/07/16 17:21 Pulse 93 09/07/16 17:21 Resp 18 09/07/16 17:21 BP 94/50 L 09/07/16 17:21 Pulse Ox 93 L 09/07/16 17:21 Weight - most recent: 503 lb 5.045 oz I&O - last 24 hours: Intake & Output 09/07/16 09/07/16 09/07/16 06:59 14:59 22:59 Intake Total 100 100 364 Output Total 100 150 35 Balance 0 -50 329 Lab Results last 24 hrs: Laboratory Results - last 24 hr 09/05/16 09/05/16 09/05/16 Range/Units 19:15 19:15 19:15 Hgb (11.5-15.5) g/dL Hct (30.0-51.3) % Reticulocyte % (Auto) 3.5 H (0.4-2.7) % Absolute Retic 121 (16-123) K/uL Glucose (80-116) mg/dL POC Glucose (80-116) mg/dL Iron 63 (30-180) ug/dL TIBC 310 (142-527) ug/dL Iron Saturation 20 (15-55) % Unsaturated IBC 247 (112-347) ug/dL Ferritin 352 H (6-170) ng/mL Blood Type Gel Antibody Screen Crossmatch 09/07/16 09/07/16 09/07/16 Range/Units 05:54 06:30 06:30 Hgb 8.5 L (11.5-15.5) g/dL Hct 26.6 L (30.0-51.3) % Reticulocyte % (Auto) (0.4-2.7) % Absolute Retic (16-123) K/uL Glucose (80-116) mg/dL POC Glucose 32 L* D (80-116) mg/dL Iron (30-180) ug/dL TIBC (142-527) ug/dL Iron Saturation (15-55) % Unsaturated IBC (112-347) ug/dL Ferritin (6-170) ng/mL Blood Type O POSITIVE Gel Antibody Screen Negative Crossmatch See Detail 09/07/16 09/07/16 09/07/16 Range/Units 06:48 07:34 11:24 Hgb (11.5-15.5) g/dL Hct (30.0-51.3) % Reticulocyte % (Auto) (0.4-2.7) % Absolute Retic (16-123) K/uL Glucose (80-116) mg/dL POC Glucose 54 L 87 31 L* (80-116) mg/dL Iron (30-180) ug/dL TIBC (142-527) ug/dL Iron Saturation (15-55) % Unsaturated IBC (112-347) ug/dL Ferritin (6-170) ng/mL Blood Type Gel Antibody Screen Crossmatch 09/07/16 09/07/16 09/07/16 Range/Units 11:35 12:21 13:49 Hgb (11.5-15.5) g/dL Hct (30.0-51.3) % Reticulocyte % (Auto) (0.4-2.7) % Absolute Retic (16-123) K/uL Glucose 34 L* D (80-116) mg/dL POC Glucose 61 L 24 L* (80-116) mg/dL Iron (30-180) ug/dL TIBC (142-527) ug/dL Iron Saturation (15-55) % Unsaturated IBC (112-347) ug/dL Ferritin (6-170) ng/mL Blood Type Gel Antibody Screen Crossmatch 09/07/16 09/07/16 09/07/16 Range/Units 14:00 14:33 16:34 Hgb (11.5-15.5) g/dL Hct (30.0-51.3) % Reticulocyte % (Auto) (0.4-2.7) % Absolute Retic (16-123) K/uL Glucose 32 L* (80-116) mg/dL POC Glucose 72 L 25 L* (80-116) mg/dL Iron (30-180) ug/dL TIBC (142-527) ug/dL Iron Saturation (15-55) % Unsaturated IBC (112-347) ug/dL Ferritin (6-170) ng/mL Blood Type Gel Antibody Screen Crossmatch 09/07/16 09/07/16 Range/Units 16:45 18:33 Hgb (11.5-15.5) g/dL Hct (30.0-51.3) % Reticulocyte % (Auto) (0.4-2.7) % Absolute Retic (16-123) K/uL Glucose 43 L (80-116) mg/dL POC Glucose 78 L (80-116) mg/dL Iron (30-180) ug/dL TIBC (142-527) ug/dL Iron Saturation (15-55) % Unsaturated IBC (112-347) ug/dL Ferritin (6-170) ng/mL Blood Type Gel Antibody Screen Crossmatch Med Orders - Current: Current Medications Acetaminophen (Tylenol Extra Strength) 1,000 mg PO TID PRN PRN Reason: Pain Last Admin: 09/07/16 06:04 Dose: 1,000 mg Acetaminophen (Tylenol Extra Strength) 1,000 mg PO TID [facility] Last Admin: 09/07/16 14:12 Dose: 1,000 mg Albuterol (Ventolin Hfa) 0 gm INH Q4H PRN PRN Reason: Shortness of Breath Albuterol/Ipratropium (Duoneb 3.0-0.5 Mg/3 Ml) 3 ml NEB Q6H PRN PRN Reason: Shortness of Breath Last Admin: 09/06/16 13:09 Dose: 3 ml Atorvastatin Calcium (Lipitor) 40 mg PO WITHDINNER [facility] Last Admin: 09/06/16 18:31 Dose: 40 mg Enoxaparin Sodium (Lovenox) 40 mg SUBCUT DAILY@2100 [facility] Last Admin: 09/06/16 21:00 Dose: 40 mg Fish Oil (Fish Oil) 1 gm PO DAILY [facility] Last Admin: 09/07/16 08:21 Dose: 1 gm Furosemide (Lasix) 80 mg PO BID@08,14 [facility] Last Admin: 09/07/16 14:12 Dose: Not Given Heparin Sodium (Porcine) (Heparin Lock Flush 10 Units/Ml) 50 unit FLUSH ASDIRECTED PRN PRN Reason: port-a cath flush Last Admin: 09/06/16 15:36 Dose: 50 unit Sodium Chloride (Normal Saline) 250 mls @ 100 mls/hr IV ASDIRECTED [facility] Last Admin: 09/04/16 14:30 Dose: 100 mls/hr Sodium Chloride (Normal Saline) 250 mls @ 100 mls/hr IV ASDIRECTED [facility] Dextrose/Water (Dextrose 10% In Water) 1,000 mls @ 70 mls/hr IV ASDIRECTED [facility] Lisinopril (Prinivil) 2.5 mg PO DAILY [facility] Last Admin: 09/07/16 08:29 Dose: 2.5 mg Metformin HCl (Glucophage Xr) 1,000 mg PO BIDMEALS [facility] Last Admin: 09/07/16 08:19 Dose: 1,000 mg Ondansetron HCl (Zofran Odt) 4 mg PO Q4H PRN PRN Reason: Nausea/Vomiting Last Admin: 09/06/16 20:39 Dose: 4 mg Pantoprazole Sodium (Protonix) 40 mg PO 0600 [facility] Last Admin: 09/07/16 06:04 Dose: 40 mg Polysaccharide Iron Complex (Ferrex 150) 150 mg PO TID [facility] Last Admin: 09/07/16 14:12 Dose: 150 mg Sodium Chloride (Saline Flush) 10 ml FLUSH ASDIRECTED PRN PRN Reason: Keep Vein Open Last Admin: 09/07/16 16:48 Dose: 10 ml Tramadol HCl (Ultram) 100 mg PO Q6H PRN PRN Reason: Pain Last Admin: 09/07/16 17:31 Dose: 100 mg Discontinued Medications Acetaminophen (Tylenol Extra Strength) 1,000 mg PO ONETIME ONE Stop: 09/05/16 10:16 Last Admin: 09/05/16 10:07 Dose: 1,000 mg Bupivacaine HCl (Marcaine 0.5%) 10 ml .XX .STK-MED ONE Stop: 09/04/16 10:56 Last Admin: 09/04/16 10:55 Dose: 10 ml Cefazolin Sodium (Ancef) 1 gm IV .STK-MED ONE Stop: 09/04/16 11:01 Dextrose/Water (Dextrose 50% In Water) 25 ml IVPUSH ONETIME ONE Stop: 09/07/16 14:08 Last Admin: 09/07/16 14:10 Dose: 25 ml Dextrose/Water (Dextrose 50% In Water) 50 ml IVPUSH ONETIME ONE Stop: 09/07/16 16:42 Last Admin: 09/07/16 16:45 Dose: 50 ml Enoxaparin Sodium (Lovenox) 40 mg SUBCUT DAILY [facility] Last Admin: 09/03/16 21:47 Dose: 40 mg Furosemide (Lasix) 40 mg PO ONETIME ONE Stop: 09/04/16 05:43 Last Admin: 09/04/16 05:53 Dose: 40 mg Furosemide (Lasix) Confirm Administered Dose 40 mg .ROUTE .STK-MED ONE Stop: 09/04/16 05:49 Last Admin: 09/04/16 05:52 Dose: Not Given Furosemide (Lasix) 20 mg IVPUSH ASDIRECTED ONE Stop: 09/04/16 12:36 Last Admin: 09/04/16 17:38 Dose: Not Given Furosemide (Lasix) 20 mg IVPUSH ASDIRECTED ONE Stop: 09/04/16 17:46 Last Admin: 09/04/16 17:37 Dose: 20 mg Furosemide (Lasix) 20 mg IVPUSH DAILY [facility] Last Admin: 09/06/16 08:40 Dose: 20 mg Furosemide (Lasix) 20 mg IVPUSH ONETIME ONE Stop: 09/05/16 13:46 Last Admin: 09/05/16 13:59 Dose: 20 mg Furosemide (Lasix) 40 mg PO ONETIME ONE Stop: 09/07/16 08:28 Last Admin: 09/07/16 08:34 Dose: 40 mg Furosemide (Lasix) 20 mg IVPUSH ONETIME ONE Stop: 09/07/16 13:01 Last Admin: 09/07/16 18:29 Dose: 20 mg Gabapentin (Neurontin) 600 mg PO BID@0800,1400 [facility] Last Admin: 09/04/16 15:13 Dose: Not Given Gabapentin (Neurontin) 900 mg PO BEDTIME [facility] Last Admin: 09/04/16 22:20 Dose: 900 mg Glimepiride (Glimepiride) 4 mg PO BRK [facility] Last Admin: 09/06/16 09:00 Dose: Not Given Glimepiride (Amaryl) 4 mg PO BIDMEALS [facility] Last Admin: 09/05/16 17:54 Dose: 4 mg Glimepiride (Amaryl) Confirm Administered Dose 2 mg .ROUTE .[facility] ONE Stop: 09/05/16 17:58 Last Admin: 09/05/16 19:22 Dose: Not Given Glimepiride (Glimepiride) 4 mg PO BIDMEALS [facility] Last Admin: 09/07/16 08:19 Dose: 4 mg Heparin Sodium (Porcine) (Heparin Lock Flush 100 Units/Ml Syringe) 10 units .XX .[facility] ONE Stop: 09/04/16 10:54 Last Admin: 09/04/16 10:53 Dose: 10 units Sodium Chloride (Normal Saline) 1,000 mls @ 50 mls/hr IV ASDIRECTED [facility] Last Admin: 09/03/16 19:16 Dose: 50 mls/hr Sodium Chloride (Normal Saline) 250 mls @ 100 mls/hr IV ASDIRECTED [facility] Sodium Chloride (Normal Saline) 250 mls @ 100 mls/hr IV ASDIRECTED [facility] Sodium Chloride (Normal Saline) 250 mls @ 100 mls/hr IV ASDIRECTED [facility] Ketamine HCl (Ketalar) 45 mg IV .[facility] ONE Stop: 09/04/16 11:01 Lidocaine HCl (Xylocaine 1%) 10 ml .XX .[facility] ONE Stop: 09/04/16 10:55 Last Admin: 09/04/16 10:54 Dose: 10 ml Lisinopril (Prinivil) 2.5 mg PO DAILY [facility] Last Admin: 09/06/16 09:00 Dose: Not Given Metformin HCl (Glucophage) 1,000 mg PO BIDM [facility] Last Admin: 09/05/16 07:58 Dose: 1,000 mg Metformin HCl (Glucophage) Confirm Administered Dose 500 mg .ROUTE .[facility] ONE Stop: 09/05/16 17:48 Last Admin: 09/05/16 19:22 Dose: Not Given Metformin HCl (Glucophage Xr) Confirm Administered Dose 500 mg .ROUTE .[facility] ONE Stop: 09/05/16 17:53 Last Admin: 09/05/16 19:21 Dose: Not Given Metolazone (Zaroxolyn) 2.5 mg PO MOWEFR [facility] Last Admin: 09/04/16 01:22 Dose: Not Given Metolazone (Zaroxolyn) 2.5 mg PO MOWEFR [facility] Last Admin: 09/03/16 21:51 Dose: 2.5 mg Metolazone (Zaroxolyn) 2.5 mg PO MoWeFr@0600 [facility] Metoprolol Succinate (Toprol Xl) 12.5 mg PO DAILY [facility] Last Admin: 09/04/16 15:14 Dose: Not Given Midazolam HCl (Versed 1 Mg/Ml) 2 mg IV .K-MED ONE Stop: 09/04/16 11:01 Mometasone Furoate (Asmanex Hfa) 0 gm INH BID [facility] Last Admin: 09/06/16 09:00 Dose: Not Given Nitrofurantoin Macrocrystals (Macrobid) 100 mg PO BID [facility] Last Admin: 09/04/16 15:14 Dose: Not Given Non-Formulary Medication (Fluticasone Propionate [Flovent Hfa 220 Mcg]) 2 puff INH BID [facility] Last Admin: 09/04/16 00:15 Dose: Not Given Pantoprazole Sodium (Protonix) 40 mg PO DAILY [facility] Last Admin: 09/04/16 15:14 Dose: Not Given Polyethylene Glycol (Miralax) 17 gm PO DAILY PRN PRN Reason: Constipation Prednisone (Prednisone) 20 mg PO BIDMEALS [facility] Prednisone (Prednisone) 20 mg PO DAILY [facility] Propofol (Diprivan 20 Ml) 150 mg IV .STK-MED ONE Stop: 09/04/16 11:01 Tramadol HCl (Ultram) 100 mg PO BID [facility] Last Admin: 09/04/16 15:15 Dose: Not Given Tramadol HCl (Ultram) 100 mg PO Q6H PRN PRN Reason: Pain Last Admin: 09/05/16 05:06 Dose: 100 mg - Exam General: alert, oriented, cooperative, moderate distress (From right rib pain) Neck: supple Lungs: Clear to auscultation, Normal respiratory effort, Crackles, Rales, Rhonchi Cardiovascular: regular rate, regular rhythm, no murmurs, other (Some pain over the right ribs on the anterior axilla. No crepitus.) Extremities: edema Psy/Mental Status: alert, normal affect, normal mood - Problem List & Annotations (1) Anemia SNOMED Code(s): 609745984 Code(s): D64.9 - ANEMIA, UNSPECIFIED Status: Acute Current Visit: Yes Qualifiers: Anemia type: unspecified type Qualified Code(s): D64.9 - Anemia, unspecified (2) CHF (congestive heart failure) SNOMED Code(s): 20807269 Code(s): I50.9 - HEART FAILURE, UNSPECIFIED Status: Acute Priority: High Current Visit: No Qualifiers: Congestive heart failure chronicity: chronic Annotation/Comment:: On oral diuretics, dieuresing well. CXR improved. Had long discussion regarding fluid restriction, monitoring weights and adding in diuretics if weight increases. (3) COPD (chronic obstructive pulmonary disease) SNOMED Code(s): 82701894 Code(s): J44.9 - CHRONIC OBSTRUCTIVE PULMONARY DISEASE, UNSPECIFIED Status : Acute Current Visit: No Qualifiers: COPD type: unspecified COPD Qualified Code(s): J44.9 - Chronic obstructive pulmonary disease, unspecified (4) Hypoglycemia SNOMED Code(s): 457376510 Code(s): E16.2 - HYPOGLYCEMIA, UNSPECIFIED Status: Acute Current Visit: Yes (5) Rib pain on right side SNOMED Code(s): 643945862 Code(s): R07.81 - PLEURODYNIA Status: Acute Current Visit: Yes - Problem List Review Problem List Initiated/Reviewed/Updated: Yes - My Orders Last 24 Hours: My Active Orders 09/07/16 06:30 RED BLOOD CELLS LP [BBK] Routine TYPE AND SCREEN [BBK] Routine 09/07/16 08:00 Hemoccult [OCCULT BLOOD DIAGNOSTIC] [OP] Routine 09/07/16 09:11 Transfuse Red Blood Cells [COMM] Routine 09/07/16 09:15 Sodium Chloride 0.9% [Normal Saline] 250 ml IV ASDIRECTED 09/07/16 14:30 Accu Check [Blood Glucose Check, Bedside] [RC] ONETIME 09/07/16 17:15 Dextrose 10% in Water 1,000 ml IV ASDIRECTED 09/07/16 17:41 Ribs 3V w Chest Bi [CR] Routine 09/08/16 06:00 CBC WITH AUTO DIFF [HEME] Routine 09/08/16 08:00 Hemoccult [OCCULT BLOOD DIAGNOSTIC] [OP] Routine - Plan Plan:: 1. Hold lisinopril, metformin, glipizide. 2. Continue giving her 2 units of blood. 3. Check Accu-Cheks every 2 hours. They're to call for to below 40. 4. We will hang D5 normal saline at 70 mL an hour after the blood is in if her blood sugars remained low. He'll check it tonight if it's okay we will do this. She does have a blood sugar of 70. 5. Chest x-ray with right ribs shows no fracture. She has cardiomegaly. I will have radiology interpretation tonight. 6. Hold the tramadol start hydrocodone to control her pain. Continue hot packs when necessary to the right side
[2016-09-07] MEDS: atorvaSTATin 40 MG Tab PO SCH (19:01)
[2016-09-07] MEDS: HYDROcodone/Ibuprofen 7.5-200 MG Tab PO PRN ×2 (19:01→22:52)
[2016-09-07] MEDS: Enoxaparin 40 MG/0.4 ML Syringe SUBCUT SCH (21:22)
[2016-09-07] MEDS: Dextrose 10% in Water 1,000 ML IV SCH (22:10)
[2016-09-08] MEDS: Pantoprazole 40 MG Tab.CR PO SCH (05:04)
[2016-09-08] MEDS: HYDROcodone/Ibuprofen 7.5-200 MG Tab PO PRN ×4 (05:04→22:15)
[2016-09-08] MEDS: Albuterol/Ipratropium 3.0-0.5 MG/3 ML Neb Soln NEB PRN ×2 (07:45→15:33)
[2016-09-08] MEDS: Acetaminophen 500 MG Tab PO SCH ×3 (08:10→20:14)
[2016-09-08] MEDS: Furosemide 80 MG Tab PO SCH ×2 (08:21→13:40)
[2016-09-08] MEDS: Fish Oil/Omega-3 Fatty Acids 1 Gm Cap PO SCH (08:21)
[2016-09-08] MEDS: Iron Polysaccharides Complex 150 MG Cap PO SCH ×3 (08:21→20:15)
--- NOTE | 2016-09-08 09:49 | PCM.PN ---
- General Info Date of Service: 09/08/16 Admission Dx/Problem (Free Text): Patient had excruciating pain in her right rib last night. We x-rayed it and the x-ray according to radiology showed no fracture. We'll increase vascular congestion. Stop tramadol and surgical. Patient states she self-pay and is tolerable. She is only short of breath but she is at her normal at this time patient does have some leg swelling. No chest pain. No fevers or chills. Her blood sugars been low she says she feels jittery. She's on D10 for that at this time. - Patient Data Vitals - most recent: Last Vital Signs Temp 97.5 F 09/08/16 07:36 Pulse 70 09/08/16 07:36 Resp 20 09/08/16 07:36 BP 98/55 L 09/08/16 07:36 Pulse Ox 87 L 09/08/16 07:36 Weight - most recent: 238 lb 14.4 oz I&O - last 24 hours: Intake & Output 09/07/16 09/08/16 09/08/16 22:59 06:59 14:59 Intake Total 754 568 Output Total 155 150 150 Balance 599 418 -150 Lab Results last 24 hrs: Laboratory Results - last 24 hr 09/05/16 09/05/16 09/05/16 Range/Units 19:15 19:15 19:15 WBC (4.5-12.0) X10-3/uL RBC (3.23-5.20) x10(6)uL Hgb (11.5-15.5) g/dL Hct (30.0-51.3) % MCV (80-96) fL MCH (27.7-33.6) pg MCHC (32.2-35.4) g/dL RDW (11.5-15.5) % Plt Count (125-369) X10(3)uL MPV (7.4-10.4) fL Reticulocyte % (Auto) 3.5 H (0.4-2.7) % Add Manual Diff Neutrophils % (Manual) (46-82) % Lymphocytes % (Manual) (13-37) % Monocytes % (Manual) (4-12) % Plt Morphology Comment Anisocytosis Absolute Retic 121 (16-123) K/uL Sodium (135-145) mmol/L Potassium (3.5-5.3) mmol/L Chloride (100-110) mmol/L Carbon Dioxide (23-29) mmol/L BUN (8-23) mg/dL Creatinine (0.6-1.3) mg/dL Est Cr Clr Drug Dosing Estimated GFR (MDRD) (>60) BUN/Creatinine Ratio (9-20) Glucose (80-116) mg/dL POC Glucose (80-116) mg/dL Calcium (8.6-10.2) mg/dL Iron 63 (30-180) ug/dL TIBC 310 (142-527) ug/dL Iron Saturation 20 (15-55) % Unsaturated IBC 247 (112-347) ug/dL Ferritin 352 H (6-170) ng/mL Blood Type Gel Antibody Screen Crossmatch 09/07/16 09/07/16 09/07/16 Range/Units 06:30 11:24 11:35 WBC (4.5-12.0) X10-3/uL RBC (3.23-5.20) x10(6)uL Hgb (11.5-15.5) g/dL Hct (30.0-51.3) % MCV (80-96) fL MCH (27.7-33.6) pg MCHC (32.2-35.4) g/dL RDW (11.5-15.5) % Plt Count (125-369) X10(3)uL MPV (7.4-10.4) fL Reticulocyte % (Auto) (0.4-2.7) % Add Manual Diff Neutrophils % (Manual) (46-82) % Lymphocytes % (Manual) (13-37) % Monocytes % (Manual) (4-12) % Plt Morphology Comment Anisocytosis Absolute Retic (16-123) K/uL Sodium (135-145) mmol/L Potassium (3.5-5.3) mmol/L Chloride (100-110) mmol/L Carbon Dioxide (23-29) mmol/L BUN (8-23) mg/dL Creatinine (0.6-1.3) mg/dL Est Cr Clr Drug Dosing Estimated GFR (MDRD) (>60) BUN/Creatinine Ratio (9-20) Glucose 34 L* D (80-116) mg/dL POC Glucose 31 L* (80-116) mg/dL Calcium (8.6-10.2) mg/dL Iron (30-180) ug/dL TIBC (142-527) ug/dL Iron Saturation (15-55) % Unsaturated IBC (112-347) ug/dL Ferritin (6-170) ng/mL Blood Type O POSITIVE Gel Antibody Screen Negative Crossmatch See Detail 09/07/16 09/07/16 09/07/16 Range/Units 12:21 13:49 14:00 WBC (4.5-12.0) X10-3/uL RBC (3.23-5.20) x10(6)uL Hgb (11.5-15.5) g/dL Hct (30.0-51.3) % MCV (80-96) fL MCH (27.7-33.6) pg MCHC (32.2-35.4) g/dL RDW (11.5-15.5) % Plt Count (125-369) X10(3)uL MPV (7.4-10.4) fL Reticulocyte % (Auto) (0.4-2.7) % Add Manual Diff Neutrophils % (Manual) (46-82) % Lymphocytes % (Manual) (13-37) % Monocytes % (Manual) (4-12) % Plt Morphology Comment Anisocytosis Absolute Retic (16-123) K/uL Sodium (135-145) mmol/L Potassium (3.5-5.3) mmol/L Chloride (100-110) mmol/L Carbon Dioxide (23-29) mmol/L BUN (8-23) mg/dL Creatinine (0.6-1.3) mg/dL Est Cr Clr Drug Dosing Estimated GFR (MDRD) (>60) BUN/Creatinine Ratio (9-20) Glucose 32 L* (80-116) mg/dL POC Glucose 61 L 24 L* (80-116) mg/dL Calcium (8.6-10.2) mg/dL Iron (30-180) ug/dL TIBC (142-527) ug/dL Iron Saturation (15-55) % Unsaturated IBC (112-347) ug/dL Ferritin (6-170) ng/mL Blood Type Gel Antibody Screen Crossmatch 09/07/16 09/07/16 09/07/16 Range/Units 14:33 16:34 16:45 WBC (4.5-12.0) X10-3/uL RBC (3.23-5.20) x10(6)uL Hgb (11.5-15.5) g/dL Hct (30.0-51.3) % MCV (80-96) fL MCH (27.7-33.6) pg MCHC (32.2-35.4) g/dL RDW (11.5-15.5) % Plt Count (125-369) X10(3)uL MPV (7.4-10.4) fL Reticulocyte % (Auto) (0.4-2.7) % Add Manual Diff Neutrophils % (Manual) (46-82) % Lymphocytes % (Manual) (13-37) % Monocytes % (Manual) (4-12) % Plt Morphology Comment Anisocytosis Absolute Retic (16-123) K/uL Sodium (135-145) mmol/L Potassium (3.5-5.3) mmol/L Chloride (100-110) mmol/L Carbon Dioxide (23-29) mmol/L BUN (8-23) mg/dL Creatinine (0.6-1.3) mg/dL Est Cr Clr Drug Dosing Estimated GFR (MDRD) (>60) BUN/Creatinine Ratio (9-20) Glucose 43 L (80-116) mg/dL POC Glucose 72 L 25 L* (80-116) mg/dL Calcium (8.6-10.2) mg/dL Iron (30-180) ug/dL TIBC (142-527) ug/dL Iron Saturation (15-55) % Unsaturated IBC (112-347) ug/dL Ferritin (6-170) ng/mL Blood Type Gel Antibody Screen Crossmatch 09/07/16 09/07/16 09/08/16 Range/Units 18:33 21:35 06:30 WBC 8.3 (4.5-12.0) X10-3/uL RBC 3.71 (3.23-5.20) x10(6)uL Hgb 10.6 L (11.5-15.5) g/dL Hct 32.5 (30.0-51.3) % MCV 87.6 (80-96) fL MCH 28.5 (27.7-33.6) pg MCHC 32.5 (32.2-35.4) g/dL RDW 17.9 H (11.5-15.5) % Plt Count 263 (125-369) X10(3)uL MPV 10.9 H (7.4-10.4) fL Reticulocyte % (Auto) (0.4-2.7) % Add Manual Diff Yes Neutrophils % (Manual) 88 H (46-82) % Lymphocytes % (Manual) 6 L (13-37) % Monocytes % (Manual) 6 (4-12) % Plt Morphology Comment See note Anisocytosis Few Absolute Retic (16-123) K/uL Sodium (135-145) mmol/L Potassium (3.5-5.3) mmol/L Chloride (100-110) mmol/L Carbon Dioxide (23-29) mmol/L BUN (8-23) mg/dL Creatinine (0.6-1.3) mg/dL Est Cr Clr Drug Dosing Estimated GFR (MDRD) (>60) BUN/Creatinine Ratio (9-20) Glucose (80-116) mg/dL POC Glucose 78 L 53 L (80-116) mg/dL Calcium (8.6-10.2) mg/dL Iron (30-180) ug/dL TIBC (142-527) ug/dL Iron Saturation (15-55) % Unsaturated IBC (112-347) ug/dL Ferritin (6-170) ng/mL Blood Type Gel Antibody Screen Crossmatch 09/08/16 Range/Units 06:30 WBC (4.5-12.0) X10-3/uL RBC (3.23-5.20) x10(6)uL Hgb (11.5-15.5) g/dL Hct (30.0-51.3) % MCV (80-96) fL MCH (27.7-33.6) pg MCHC (32.2-35.4) g/dL RDW (11.5-15.5) % Plt Count (125-369) X10(3)uL MPV (7.4-10.4) fL Reticulocyte % (Auto) (0.4-2.7) % Add Manual Diff Neutrophils % (Manual) (46-82) % Lymphocytes % (Manual) (13-37) % Monocytes % (Manual) (4-12) % Plt Morphology Comment Anisocytosis Absolute Retic (16-123) K/uL Sodium 134 L (135-145) mmol/L Potassium 4.4 (3.5-5.3) mmol/L Chloride 97 L (100-110) mmol/L Carbon Dioxide 29 (23-29) mmol/L BUN 47 H (8-23) mg/dL Creatinine 0.7 (0.6-1.3) mg/dL Est Cr Clr Drug Dosing TNP Estimated GFR (MDRD) > 60 (>60) BUN/Creatinine Ratio 67.1 H (9-20) Glucose 41 L (80-116) mg/dL POC Glucose (80-116) mg/dL Calcium 9.0 (8.6-10.2) mg/dL Iron (30-180) ug/dL TIBC (142-527) ug/dL Iron Saturation (15-55) % Unsaturated IBC (112-347) ug/dL Ferritin (6-170) ng/mL Blood Type Gel Antibody Screen Crossmatch Med Orders - Current: Current Medications Acetaminophen (Tylenol Extra Strength) 1,000 mg PO TID PRN PRN Reason: Pain Last Admin: 09/07/16 06:04 Dose: 1,000 mg Acetaminophen (Tylenol Extra Strength) 1,000 mg PO TID [facility] Last Admin: 09/08/16 08:10 Dose: 1,000 mg Albuterol (Ventolin Hfa) 0 gm INH Q4H PRN PRN Reason: Shortness of Breath Albuterol/Ipratropium (Duoneb 3.0-0.5 Mg/3 Ml) 3 ml NEB Q6H PRN PRN Reason: Shortness of Breath Last Admin: 09/08/16 07:45 Dose: 3 ml Atorvastatin Calcium (Lipitor) 40 mg PO WITHDINNER [facility] Last Admin: 09/07/16 19:01 Dose: 40 mg Enoxaparin Sodium (Lovenox) 40 mg SUBCUT DAILY@2100 [facility] Last Admin: 09/07/16 21:22 Dose: 40 mg Fish Oil (Fish Oil) 1 gm PO DAILY [facility] Last Admin: 09/08/16 08:21 Dose: 1 gm Furosemide (Lasix) 80 mg PO BID@08,14 [facility] Last Admin: 09/08/16 08:21 Dose: 80 mg Heparin Sodium (Porcine) (Heparin Lock Flush 10 Units/Ml) 50 unit FLUSH ASDIRECTED PRN PRN Reason: port-a cath flush Last Admin: 09/06/16 15:36 Dose: 50 unit Hydrocodone Bitartrate/Ibuprofen (Vicoprofen) 1 tab PO Q4H PRN PRN Reason: Pain Last Admin: 09/08/16 05:04 Dose: 1 tab Sodium Chloride (Normal Saline) 250 mls @ 100 mls/hr IV ASDIRECTED [facility] Last Admin: 09/04/16 14:30 Dose: 100 mls/hr Sodium Chloride (Normal Saline) 250 mls @ 100 mls/hr IV ASDIRECTED [facility] Last Admin: 09/07/16 18:40 Dose: 100 mls/hr Dextrose/Water (Dextrose 10% In Water) 1,000 mls @ 70 mls/hr IV ASDIRECTED [facility] Last Admin: 09/07/16 22:10 Dose: 70 mls/hr Lisinopril (Prinivil) 2.5 mg PO DAILY [facility] Last Admin: 09/07/16 08:29 Dose: 2.5 mg Metformin HCl (Glucophage Xr) 1,000 mg PO BIDMEALS [facility] Last Admin: 09/07/16 08:19 Dose: 1,000 mg Ondansetron HCl (Zofran Odt) 4 mg PO Q4H PRN PRN Reason: Nausea/Vomiting Last Admin: 09/06/16 20:39 Dose: 4 mg Pantoprazole Sodium (Protonix) 40 mg PO 0600 [facility] Last Admin: 09/08/16 05:04 Dose: 40 mg Polysaccharide Iron Complex (Ferrex 150) 150 mg PO TID [facility] Last Admin: 09/08/16 08:21 Dose: 150 mg Sodium Chloride (Saline Flush) 10 ml FLUSH ASDIRECTED PRN PRN Reason: Keep Vein Open Last Admin: 09/07/16 21:28 Dose: 10 ml Tramadol HCl (Ultram) 100 mg PO Q6H PRN PRN Reason: Pain Last Admin: 09/07/16 17:31 Dose: 100 mg Discontinued Medications Acetaminophen (Tylenol Extra Strength) 1,000 mg PO ONETIME ONE Stop: 09/05/16 10:16 Last Admin: 09/05/16 10:07 Dose: 1,000 mg Bupivacaine HCl (Marcaine 0.5%) 10 ml .XX .[facility] ONE Stop: 09/04/16 10:56 Last Admin: 09/04/16 10:55 Dose: 10 ml Cefazolin Sodium (Ancef) 1 gm IV .[facility] ONE Stop: 09/04/16 11:01 Dextrose/Water (Dextrose 50% In Water) 25 ml IVPUSH ONETIME ONE Stop: 09/07/16 14:08 Last Admin: 09/07/16 14:10 Dose: 25 ml Dextrose/Water (Dextrose 50% In Water) 50 ml IVPUSH ONETIME ONE Stop: 09/07/16 16:42 Last Admin: 09/07/16 16:45 Dose: 50 ml Enoxaparin Sodium (Lovenox) 40 mg SUBCUT DAILY [facility] Last Admin: 09/03/16 21:47 Dose: 40 mg Furosemide (Lasix) 40 mg PO ONETIME ONE Stop: 09/04/16 05:43 Last Admin: 09/04/16 05:53 Dose: 40 mg Furosemide (Lasix) Confirm Administered Dose 40 mg .ROUTE .[facility] ONE Stop: 09/04/16 05:49 Last Admin: 09/04/16 05:52 Dose: Not Given Furosemide (Lasix) 20 mg IVPUSH ASDIRECTED ONE Stop: 09/04/16 12:36 Last Admin: 09/04/16 17:38 Dose: Not Given Furosemide (Lasix) 20 mg IVPUSH ASDIRECTED ONE Stop: 09/04/16 17:46 Last Admin: 09/04/16 17:37 Dose: 20 mg Furosemide (Lasix) 20 mg IVPUSH DAILY [facility] Last Admin: 09/06/16 08:40 Dose: 20 mg Furosemide (Lasix) 20 mg IVPUSH ONETIME ONE Stop: 09/05/16 13:46 Last Admin: 09/05/16 13:59 Dose: 20 mg Furosemide (Lasix) 40 mg PO ONETIME ONE Stop: 09/07/16 08:28 Last Admin: 09/07/16 08:34 Dose: 40 mg Furosemide (Lasix) 20 mg IVPUSH ONETIME ONE Stop: 09/07/16 13:01 Last Admin: 09/07/16 18:29 Dose: 20 mg Gabapentin (Neurontin) 600 mg PO BID@0800,1400 [facility] Last Admin: 09/04/16 15:13 Dose: Not Given Gabapentin (Neurontin) 900 mg PO BEDTIME [facility] Last Admin: 09/04/16 22:20 Dose: 900 mg Glimepiride (Glimepiride) 4 mg PO BRK [facility] Last Admin: 09/06/16 09:00 Dose: Not Given Glimepiride (Amaryl) 4 mg PO BIDMEALS [facility] Last Admin: 09/05/16 17:54 Dose: 4 mg Glimepiride (Amaryl) Confirm Administered Dose 2 mg .ROUTE .[facility] ONE Stop: 09/05/16 17:58 Last Admin: 09/05/16 19:22 Dose: Not Given Glimepiride (Glimepiride) 4 mg PO BIDMEALS [facility] Last Admin: 09/07/16 08:19 Dose: 4 mg Heparin Sodium (Porcine) (Heparin Lock Flush 100 Units/Ml Syringe) 10 units .XX .[facility] ONE Stop: 09/04/16 10:54 Last Admin: 09/04/16 10:53 Dose: 10 units Sodium Chloride (Normal Saline) 1,000 mls @ 50 mls/hr IV ASDIRECTED [facility] Last Admin: 09/03/16 19:16 Dose: 50 mls/hr Sodium Chloride (Normal Saline) 250 mls @ 100 mls/hr IV ASDIRECTED [facility] Sodium Chloride (Normal Saline) 250 mls @ 100 mls/hr IV ASDIRECTED FRANSISCA Sodium Chloride (Normal Saline) 250 mls @ 100 mls/hr IV ASDIRECTED [facility] Ketamine HCl (Ketalar) 45 mg IV .[facility] ONE Stop: 09/04/16 11:01 Lidocaine HCl (Xylocaine 1%) 10 ml .XX .[facility] ONE Stop: 09/04/16 10:55 Last Admin: 09/04/16 10:54 Dose: 10 ml Lisinopril (Prinivil) 2.5 mg PO DAILY [facility] Last Admin: 09/06/16 09:00 Dose: Not Given Metformin HCl (Glucophage) 1,000 mg PO BIDM [facility] Last Admin: 09/05/16 07:58 Dose: 1,000 mg Metformin HCl (Glucophage) Confirm Administered Dose 500 mg .ROUTE .[facility] ONE Stop: 09/05/16 17:48 Last Admin: 09/05/16 19:22 Dose: Not Given Metformin HCl (Glucophage Xr) Confirm Administered Dose 500 mg .ROUTE .STK-MED ONE Stop: 09/05/16 17:53 Last Admin: 09/05/16 19:21 Dose: Not Given Metolazone (Zaroxolyn) 2.5 mg PO MOWEFR [facility] Last Admin: 09/04/16 01:22 Dose: Not Given Metolazone (Zaroxolyn) 2.5 mg PO MOWEFR [facility] Last Admin: 09/03/16 21:51 Dose: 2.5 mg Metolazone (Zaroxolyn) 2.5 mg PO MoWeFr@0600 [facility] Metoprolol Succinate (Toprol Xl) 12.5 mg PO DAILY [facility] Last Admin: 09/04/16 15:14 Dose: Not Given Midazolam HCl (Versed 1 Mg/Ml) 2 mg IV .STK-[facility] ONE Stop: 09/04/16 11:01 Mometasone Furoate (Asmanex Hfa) 0 gm INH BID [facility] Last Admin: 09/06/16 09:00 Dose: Not Given Nitrofurantoin Macrocrystals (Macrobid) 100 mg PO BID [facility] Last Admin: 09/04/16 15:14 Dose: Not Given Non-Formulary Medication (Fluticasone Propionate [Flovent Hfa 220 Mcg]) 2 puff INH BID [facility] Last Admin: 09/04/16 00:15 Dose: Not Given Pantoprazole Sodium (Protonix) 40 mg PO DAILY [facility] Last Admin: 09/04/16 15:14 Dose: Not Given Polyethylene Glycol (Miralax) 17 gm PO DAILY PRN PRN Reason: Constipation Prednisone (Prednisone) 20 mg PO BIDMEALS [facility] Prednisone (Prednisone) 20 mg PO DAILY [facility] Propofol (Diprivan 20 Ml) 150 mg IV .STK-MED ONE Stop: 09/04/16 11:01 Tramadol HCl (Ultram) 100 mg PO BID [facility] Last Admin: 09/04/16 15:15 Dose: Not Given Tramadol HCl (Ultram) 100 mg PO Q6H PRN PRN Reason: Pain Last Admin: 09/05/16 05:06 Dose: 100 mg - Exam General: alert, oriented, cooperative Lungs: Clear to auscultation, Normal respiratory effort Cardiovascular: regular rate, regular rhythm. No: no murmurs Extremities: no edema - Problem List & Annotations (1) Anemia SNOMED Code(s): 570353686 Code(s): D64.9 - ANEMIA, UNSPECIFIED Status: Acute Current Visit: Yes Qualifiers: Anemia type: unspecified type Qualified Code(s): D64.9 - Anemia, unspecified (2) CHF (congestive heart failure) SNOMED Code(s): 46238977 Code(s): I50.9 - HEART FAILURE, UNSPECIFIED Status: Acute Priority: High Current Visit: No Qualifiers: Congestive heart failure chronicity: chronic Annotation/Comment:: On oral diuretics, dieuresing well. CXR improved. Had long discussion regarding fluid restriction, monitoring weights and adding in diuretics if weight increases. (3) COPD (chronic obstructive pulmonary disease) SNOMED Code(s): 24908794 Code(s): J44.9 - CHRONIC OBSTRUCTIVE PULMONARY DISEASE, UNSPECIFIED Status : Acute Current Visit: No Qualifiers: COPD type: unspecified COPD Qualified Code(s): J44.9 - Chronic obstructive pulmonary disease, unspecified (4) Hypoglycemia SNOMED Code(s): 268408826 Code(s): E16.2 - HYPOGLYCEMIA, UNSPECIFIED Status: Acute Current Visit: Yes (5) Rib pain on right side SNOMED Code(s): 015890168 Code(s): R07.81 - PLEURODYNIA Status: Acute Current Visit: Yes - Problem List Review Problem List Initiated/Reviewed/Updated: Yes - My Orders Last 24 Hours: My Active Orders 09/07/16 09:11 Transfuse Red Blood Cells [COMM] Routine 09/07/16 09:15 Sodium Chloride 0.9% [Normal Saline] 250 ml IV ASDIRECTED 09/07/16 17:15 Dextrose 10% in Water 1,000 ml IV ASDIRECTED 09/07/16 17:41 Ribs 3V w Chest Bi [CR] Routine 09/07/16 18:41 HYDROcodone/Ibuprofen [Vicoprofen] 1 tab PO Q4H PRN 09/08/16 08:00 Hemoccult [OCCULT BLOOD DIAGNOSTIC] [OP] Routine - Plan Plan:: 1. Restart her normal Lasix dose and lisinopril. 2. Continue to hold metformin and glipizide. Check blood sugars frequently and continue D. 10 and so her blood sugars have come up. 3. Long discussion about CODE STATUS. She wants to be a DO NOT RESUSCITATE/DO NOT INTUBATE. 4. Long discussion about her having frequent hospitalizations and possible residential placement. Patient is resistant at this time. 5. She still refuses a colonoscopy and a bone marrow. I told her to avoid as much workup and showed continued to have good blood if we do this approach. She does not care she wants to not have these procedures. 6. Continue PT/OT. Patient does not qualify for swing bed. They will have a conference with her caregiver tomorrow.
[2016-09-08] MEDS: Lisinopril 2.5 MG Tab PO SCH (10:09)
[2016-09-08] MEDS: Dextrose 10% in Water 1,000 ML IV SCH (12:40)
[2016-09-08] MEDS: Acetaminophen 500 MG Tab PO PRN (16:16)
[2016-09-08] MEDS: atorvaSTATin 40 MG Tab PO SCH (18:53)
[2016-09-08] MEDS: Enoxaparin 40 MG/0.4 ML Syringe SUBCUT SCH (20:15)
[2016-09-09] MEDS: HYDROcodone/Ibuprofen 7.5-200 MG Tab PO PRN ×2 (02:12→08:02)
[2016-09-09] MEDS: Dextrose 10% in Water 1,000 ML IV SCH (02:59)
[2016-09-09] MEDS: Pantoprazole 40 MG Tab.CR PO SCH (05:50)
[2016-09-09] MEDS ORDERED: Metolazone 5 MG Tab PO ONE (07:30)
[2016-09-09] MEDS: Albuterol/Ipratropium 3.0-0.5 MG/3 ML Neb Soln NEB PRN ×2 (08:20→15:05)
--- NOTE | 2016-09-09 09:04 | PCM.PN ---
- General Info Date of Service: 09/09/16 Admission Dx/Problem (Free Text): Patient feels more short of breath today. She has no chest pain and her legs are more swollen. No coughing, fevers or shortness of breath. She's concerned about her part because it's itching today. - Patient Data Vitals - most recent: Last Vital Signs Temp 98.1 F 09/09/16 07:55 Pulse 79 09/09/16 04:00 Resp 20 09/09/16 07:55 BP 130/64 09/09/16 07:55 Pulse Ox 93 L 09/09/16 07:55 Weight - most recent: 238 lb 14.4 oz I&O - last 24 hours: Intake & Output 09/08/16 09/09/16 09/09/16 22:59 06:59 14:59 Intake Total 928 942 110 Output Total 400 745 Balance 528 197 110 Lab Results last 24 hrs: Laboratory Results - last 24 hr 09/08/16 09/08/16 09/08/16 Range/Units 10:11 16:19 16:35 WBC (4.5-12.0) X10-3/uL RBC (3.23-5.20) x10(6)uL Hgb (11.5-15.5) g/dL Hct (30.0-51.3) % MCV (80-96) fL MCH (27.7-33.6) pg MCHC (32.2-35.4) g/dL RDW (11.5-15.5) % Plt Count (125-369) X10(3)uL MPV (7.4-10.4) fL Add Manual Diff Neutrophils % (Manual) (46-82) % Band Neutrophils % (0-6) % Lymphocytes % (Manual) (13-37) % Monocytes % (Manual) (4-12) % Eosinophils % (Manual) (0-5) % Giant Platelets Poikilocytosis Anisocytosis Glucose 67 L (80-116) mg/dL POC Glucose 57 L 37 L* (80-116) mg/dL 09/09/16 09/09/16 09/09/16 Range/Units 03:53 06:20 06:25 WBC 7.3 (4.5-12.0) X10-3/uL RBC 3.83 (3.23-5.20) x10(6)uL Hgb 10.8 L (11.5-15.5) g/dL Hct 33.7 (30.0-51.3) % MCV 88.0 (80-96) fL MCH 28.3 (27.7-33.6) pg MCHC 32.1 L (32.2-35.4) g/dL RDW 18.0 H (11.5-15.5) % Plt Count 237 (125-369) X10(3)uL MPV 10.2 (7.4-10.4) fL Add Manual Diff Yes Neutrophils % (Manual) 74 (46-82) % Band Neutrophils % 2 (0-6) % Lymphocytes % (Manual) 16 (13-37) % Monocytes % (Manual) 6 (4-12) % Eosinophils % (Manual) 2 (0-5) % Giant Platelets Few Poikilocytosis Few Anisocytosis Few Glucose (80-116) mg/dL POC Glucose 128 H D 124 H (80-116) mg/dL Med Orders - Current: Current Medications Acetaminophen (Tylenol Extra Strength) 1,000 mg PO TID PRN PRN Reason: Pain Last Admin: 09/08/16 16:16 Dose: 1,000 mg Acetaminophen (Tylenol Extra Strength) 1,000 mg PO TID [facility] Last Admin: 09/08/16 20:14 Dose: 1,000 mg Albuterol (Ventolin Hfa) 0 gm INH Q4H PRN PRN Reason: Shortness of Breath Albuterol/Ipratropium (Duoneb 3.0-0.5 Mg/3 Ml) 3 ml NEB Q6H PRN PRN Reason: Shortness of Breath Last Admin: 09/09/16 08:20 Dose: 3 ml Atorvastatin Calcium (Lipitor) 40 mg PO WITHDINNER [facility] Last Admin: 09/08/16 18:53 Dose: 40 mg Enoxaparin Sodium (Lovenox) 40 mg SUBCUT DAILY@2100 [facility] Last Admin: 09/08/16 20:15 Dose: 40 mg Fish Oil (Fish Oil) 1 gm PO DAILY [facility] Last Admin: 09/08/16 08:21 Dose: 1 gm Furosemide (Lasix) 80 mg PO BID@08,14 [facility] Last Admin: 09/08/16 13:40 Dose: 80 mg Heparin Sodium (Porcine) (Heparin Lock Flush 10 Units/Ml) 50 unit FLUSH ASDIRECTED PRN PRN Reason: port-a cath flush Last Admin: 09/06/16 15:36 Dose: 50 unit Hydrocodone Bitartrate/Ibuprofen (Vicoprofen) 1 tab PO Q4H PRN PRN Reason: Pain Last Admin: 09/09/16 08:02 Dose: 1 tab Dextrose/Water (Dextrose 10% In Water) 1,000 mls @ 70 mls/hr IV ASDIRECTED [facility] Last Admin: 09/09/16 02:59 Dose: 70 mls/hr Lisinopril (Prinivil) 2.5 mg PO DAILY [facility] Last Admin: 09/08/16 10:09 Dose: 2.5 mg Metformin HCl (Glucophage Xr) 1,000 mg PO BIDMEALS [facility] Last Admin: 09/07/16 08:19 Dose: 1,000 mg Ondansetron HCl (Zofran Odt) 4 mg PO Q4H PRN PRN Reason: Nausea/Vomiting Last Admin: 09/06/16 20:39 Dose: 4 mg Pantoprazole Sodium (Protonix) 40 mg PO 0600 [facility] Last Admin: 09/09/16 05:50 Dose: 40 mg Polysaccharide Iron Complex (Ferrex 150) 150 mg PO TID [facility] Last Admin: 09/08/16 20:15 Dose: 150 mg Tramadol HCl (Ultram) 100 mg PO Q6H PRN PRN Reason: Pain Last Admin: 09/07/16 17:31 Dose: 100 mg Discontinued Medications Acetaminophen (Tylenol Extra Strength) 1,000 mg PO ONETIME ONE Stop: 09/05/16 10:16 Last Admin: 09/05/16 10:07 Dose: 1,000 mg Bupivacaine HCl (Marcaine 0.5%) 10 ml .XX .STK-MED ONE Stop: 09/04/16 10:56 Last Admin: 09/04/16 10:55 Dose: 10 ml Cefazolin Sodium (Ancef) 1 gm IV .STK-MED ONE Stop: 09/04/16 11:01 Dextrose/Water (Dextrose 50% In Water) 25 ml IVPUSH ONETIME ONE Stop: 09/07/16 14:08 Last Admin: 09/07/16 14:10 Dose: 25 ml Dextrose/Water (Dextrose 50% In Water) 50 ml IVPUSH ONETIME ONE Stop: 09/07/16 16:42 Last Admin: 09/07/16 16:45 Dose: 50 ml Enoxaparin Sodium (Lovenox) 40 mg SUBCUT DAILY [facility] Last Admin: 09/03/16 21:47 Dose: 40 mg Furosemide (Lasix) 40 mg PO ONETIME ONE Stop: 09/04/16 05:43 Last Admin: 09/04/16 05:53 Dose: 40 mg Furosemide (Lasix) Confirm Administered Dose 40 mg .ROUTE .STK-MED ONE Stop: 09/04/16 05:49 Last Admin: 09/04/16 05:52 Dose: Not Given Furosemide (Lasix) 20 mg IVPUSH ASDIRECTED ONE Stop: 09/04/16 12:36 Last Admin: 09/04/16 17:38 Dose: Not Given Furosemide (Lasix) 20 mg IVPUSH ASDIRECTED ONE Stop: 09/04/16 17:46 Last Admin: 09/04/16 17:37 Dose: 20 mg Furosemide (Lasix) 20 mg IVPUSH DAILY [facility] Last Admin: 09/06/16 08:40 Dose: 20 mg Furosemide (Lasix) 20 mg IVPUSH ONETIME ONE Stop: 09/05/16 13:46 Last Admin: 09/05/16 13:59 Dose: 20 mg Furosemide (Lasix) 40 mg PO ONETIME ONE Stop: 09/07/16 08:28 Last Admin: 09/07/16 08:34 Dose: 40 mg Furosemide (Lasix) 20 mg IVPUSH ONETIME ONE Stop: 09/07/16 13:01 Last Admin: 09/07/16 18:29 Dose: 20 mg Gabapentin (Neurontin) 600 mg PO BID@0800,1400 [facility] Last Admin: 09/04/16 15:13 Dose: Not Given Gabapentin (Neurontin) 900 mg PO BEDTIME [facility] Last Admin: 09/04/16 22:20 Dose: 900 mg Glimepiride (Glimepiride) 4 mg PO BRK [facility] Last Admin: 09/06/16 09:00 Dose: Not Given Glimepiride (Amaryl) 4 mg PO BIDMEALS [facility] Last Admin: 09/05/16 17:54 Dose: 4 mg Glimepiride (Amaryl) Confirm Administered Dose 2 mg .ROUTE .[facility]-MED ONE Stop: 09/05/16 17:58 Last Admin: 09/05/16 19:22 Dose: Not Given Glimepiride (Glimepiride) 4 mg PO BIDMEALS [facility] Last Admin: 09/07/16 08:19 Dose: 4 mg Heparin Sodium (Porcine) (Heparin Lock Flush 100 Units/Ml Syringe) 10 units .XX .[facility] ONE Stop: 09/04/16 10:54 Last Admin: 09/04/16 10:53 Dose: 10 units Sodium Chloride (Normal Saline) 1,000 mls @ 50 mls/hr IV ASDIRECTED [facility] Last Admin: 09/03/16 19:16 Dose: 50 mls/hr Sodium Chloride (Normal Saline) 250 mls @ 100 mls/hr IV ASDIRECTED [facility] Last Admin: 09/04/16 14:30 Dose: 100 mls/hr Sodium Chloride (Normal Saline) 250 mls @ 100 mls/hr IV ASDIRECTED [facility] Sodium Chloride (Normal Saline) 250 mls @ 100 mls/hr IV ASDIRECTED [facility] Sodium Chloride (Normal Saline) 250 mls @ 100 mls/hr IV ASDIRECTED [facility] Sodium Chloride (Normal Saline) 250 mls @ 100 mls/hr IV ASDIRECTED [facility] Last Admin: 09/07/16 18:40 Dose: 100 mls/hr Ketamine HCl (Ketalar) 45 mg IV .STK-MED ONE Stop: 09/04/16 11:01 Lidocaine HCl (Xylocaine 1%) 10 ml .XX .[facility] ONE Stop: 09/04/16 10:55 Last Admin: 09/04/16 10:54 Dose: 10 ml Lisinopril (Prinivil) 2.5 mg PO DAILY [facility] Last Admin: 09/06/16 09:00 Dose: Not Given Metformin HCl (Glucophage) 1,000 mg PO BIDM [facility] Last Admin: 09/05/16 07:58 Dose: 1,000 mg Metformin HCl (Glucophage) Confirm Administered Dose 500 mg .ROUTE .STK-MED ONE Stop: 09/05/16 17:48 Last Admin: 09/05/16 19:22 Dose: Not Given Metformin HCl (Glucophage Xr) Confirm Administered Dose 500 mg .ROUTE .STK-MED ONE Stop: 09/05/16 17:53 Last Admin: 09/05/16 19:21 Dose: Not Given Metolazone (Zaroxolyn) 2.5 mg PO MOWEFR [facility] Last Admin: 09/04/16 01:22 Dose: Not Given Metolazone (Zaroxolyn) 2.5 mg PO MOWEFR [facility] Last Admin: 09/03/16 21:51 Dose: 2.5 mg Metolazone (Zaroxolyn) 2.5 mg PO MoWeFr@0600 [facility] Metolazone (Zaroxolyn) 5 mg PO ONETIME ONE Stop: 09/09/16 07:31 Last Admin: 09/09/16 08:02 Dose: 5 mg Metoprolol Succinate (Toprol Xl) 12.5 mg PO DAILY [facility] Last Admin: 09/04/16 15:14 Dose: Not Given Midazolam HCl (Versed 1 Mg/Ml) 2 mg IV .STK-MED ONE Stop: 09/04/16 11:01 Mometasone Furoate (Asmanex Hfa) 0 gm INH BID [facility] Last Admin: 09/06/16 09:00 Dose: Not Given Nitrofurantoin Macrocrystals (Macrobid) 100 mg PO BID [facility] Last Admin: 09/04/16 15:14 Dose: Not Given Non-Formulary Medication (Fluticasone Propionate [Flovent Hfa 220 Mcg]) 2 puff INH BID [facility] Last Admin: 09/04/16 00:15 Dose: Not Given Pantoprazole Sodium (Protonix) 40 mg PO DAILY [facility] Last Admin: 09/04/16 15:14 Dose: Not Given Polyethylene Glycol (Miralax) 17 gm PO DAILY PRN PRN Reason: Constipation Prednisone (Prednisone) 20 mg PO BIDMEALS [facility] Prednisone (Prednisone) 20 mg PO DAILY [facility] Propofol (Diprivan 20 Ml) 150 mg IV .STK-MED ONE Stop: 09/04/16 11:01 Sodium Chloride (Saline Flush) 10 ml FLUSH ASDIRECTED PRN PRN Reason: Keep Vein Open Last Admin: 09/07/16 21:28 Dose: 10 ml Tramadol HCl (Ultram) 100 mg PO BID [facility] Last Admin: 09/04/16 15:15 Dose: Not Given Tramadol HCl (Ultram) 100 mg PO Q6H PRN PRN Reason: Pain Last Admin: 09/05/16 05:06 Dose: 100 mg - Exam General: alert, oriented, cooperative Lungs: Normal respiratory effort, Rales Cardiovascular: regular rate, regular rhythm, no murmurs Extremities: edema - Problem List & Annotations (1) Anemia SNOMED Code(s): 109446131 Code(s): D64.9 - ANEMIA, UNSPECIFIED Status: Acute Current Visit: Yes Qualifiers: Anemia type: unspecified type Qualified Code(s): D64.9 - Anemia, unspecified (2) CHF (congestive heart failure) SNOMED Code(s): 98380859 Code(s): I50.9 - HEART FAILURE, UNSPECIFIED Status: Acute Priority: High Current Visit: No Qualifiers: Congestive heart failure chronicity: chronic Annotation/Comment:: On oral diuretics, dieuresing well. CXR improved. Had long discussion regarding fluid restriction, monitoring weights and adding in diuretics if weight increases. (3) COPD (chronic obstructive pulmonary disease) SNOMED Code(s): 89161007 Code(s): J44.9 - CHRONIC OBSTRUCTIVE PULMONARY DISEASE, UNSPECIFIED Status : Acute Current Visit: No Qualifiers: COPD type: unspecified COPD Qualified Code(s): J44.9 - Chronic obstructive pulmonary disease, unspecified (4) Hypoglycemia SNOMED Code(s): 289638962 Code(s): E16.2 - HYPOGLYCEMIA, UNSPECIFIED Status: Acute Current Visit: Yes (5) Rib pain on right side SNOMED Code(s): 799945453 Code(s): R07.81 - PLEURODYNIA Status: Acute Current Visit: Yes (6) Palliative care status SNOMED Code(s): 072377131 Code(s): Z51.5 - ENCOUNTER FOR PALLIATIVE CARE Status: Acute Current Visit: Yes - Problem List Review Problem List Initiated/Reviewed/Updated: Yes - My Orders Last 24 Hours: My Active Orders 09/08/16 08:00 Hemoccult [OCCULT BLOOD DIAGNOSTIC] [OP] Routine 09/09/16 07:16 Convert IV to Saline Lock [OM.PC] Routine - Plan Plan:: 1. Restart Lasix today. I gave metolazone 5 mg and then 60 mg IV Lasix 30 minutes later. And then restart her normal Lasix dose that she takes home. 2. Blood sugars are stabilizing so I stopped her D. 10 normal saline. 3. Hemoglobin is stable today. 4. Her home health agency apparently will not take her back. There will be a care conference at 2 PM about where the patient will be best served. Talked about group home and she refuses at this time. 5. She still states her ribs hurt. I'm going to stop the hydrocodone and put her back on her tramadol 100 mg 3 times a day. 6. Continue to hold diabetic agents. 7. Continue to closely monitor blood sugars.
[2016-09-09] MEDS: Furosemide 80 MG Tab PO SCH ×2 (09:13→13:32)
[2016-09-09] MEDS ORDERED: Furosemide 100 MG/10 ML SDV IVPUSH ONE (09:18)
[2016-09-09] MEDS: Lisinopril 2.5 MG Tab PO SCH (09:35)
[2016-09-09] MEDS: Iron Polysaccharides Complex 150 MG Cap PO SCH ×3 (09:35→20:30)
[2016-09-09] MEDS: Fish Oil/Omega-3 Fatty Acids 1 Gm Cap PO SCH (09:35)
[2016-09-09] MEDS: Acetaminophen 500 MG Tab PO SCH ×3 (09:36→20:03)
[2016-09-09] MEDS: traMADol 50 MG Tab PO PRN (09:36)
[2016-09-09] MEDS: Heparin Sodium 10 Units/ML 5 ML Syringe FLUSH PRN (09:39)
[2016-09-09] MEDS: Ondansetron 4 MG Tab.DIS PO PRN (13:29)
[2016-09-09] MEDS: traMADol 50 MG Tab PO SCH ×2 (13:32→20:27)
[2016-09-09] MEDS: atorvaSTATin 40 MG Tab PO SCH (17:23)
[2016-09-09] MEDS: LORazepam 0.5 MG Tab PO PRN (19:54)
[2016-09-09] MEDS: Enoxaparin 40 MG/0.4 ML Syringe SUBCUT SCH (20:26)
[2016-09-10] MEDS: LORazepam 0.5 MG Tab PO PRN ×2 (04:00→21:13)
[2016-09-10] MEDS: Pantoprazole 40 MG Tab.CR PO SCH (05:14)
[2016-09-10] MEDS: Albuterol/Ipratropium 3.0-0.5 MG/3 ML Neb Soln NEB PRN ×2 (07:26→14:11)
--- NOTE | 2016-09-10 07:52 | PCM.PN ---
- General Info Date of Service: 09/10/16 Subjective Update: Patient states she's feeling much better today. She still a little short of breath more than normal. No coughing, wheezing, runny nose, sore throat, chest pain. Legs are swollen but improved. - Patient Data Vitals - most recent: Last Vital Signs Temp 98.1 F 09/10/16 04:00 Pulse 80 09/10/16 07:30 Resp 20 09/10/16 04:00 BP 122/66 09/10/16 04:00 Pulse Ox 87 L 09/10/16 07:29 Weight - most recent: 234 lb 6 oz I&O - last 24 hours: Intake & Output 09/09/16 09/10/16 09/10/16 22:59 06:59 14:59 Intake Total 300 150 Output Total 1150 450 Balance -850 -300 Lab Results last 24 hrs: Laboratory Results - last 24 hr 09/09/16 09/09/16 09/09/16 Range/Units 06:25 11:33 17:21 WBC 7.3 (4.5-12.0) X10-3/uL RBC 3.83 (3.23-5.20) x10(6)uL Hgb 10.8 L (11.5-15.5) g/dL Hct 33.7 (30.0-51.3) % MCV 88.0 (80-96) fL MCH 28.3 (27.7-33.6) pg MCHC 32.1 L (32.2-35.4) g/dL RDW 18.0 H (11.5-15.5) % Plt Count 237 (125-369) X10(3)uL MPV 10.2 (7.4-10.4) fL Add Manual Diff Yes Neutrophils % (Manual) 74 (46-82) % Band Neutrophils % 2 (0-6) % Lymphocytes % (Manual) 16 (13-37) % Monocytes % (Manual) 6 (4-12) % Eosinophils % (Manual) 2 (0-5) % Giant Platelets Few Poikilocytosis Few Anisocytosis Few POC Glucose 190 H 197 H (80-116) mg/dL 09/10/16 Range/Units 05:32 WBC (4.5-12.0) X10-3/uL RBC (3.23-5.20) x10(6)uL Hgb (11.5-15.5) g/dL Hct (30.0-51.3) % MCV (80-96) fL MCH (27.7-33.6) pg MCHC (32.2-35.4) g/dL RDW (11.5-15.5) % Plt Count (125-369) X10(3)uL MPV (7.4-10.4) fL Add Manual Diff Neutrophils % (Manual) (46-82) % Band Neutrophils % (0-6) % Lymphocytes % (Manual) (13-37) % Monocytes % (Manual) (4-12) % Eosinophils % (Manual) (0-5) % Giant Platelets Poikilocytosis Anisocytosis POC Glucose 155 H (80-116) mg/dL Med Orders - Current: Current Medications Acetaminophen (Tylenol Extra Strength) 1,000 mg PO TID [facility] Last Admin: 09/09/16 20:03 Dose: 1,000 mg Albuterol (Ventolin Hfa) 0 gm INH Q4H PRN PRN Reason: Shortness of Breath Albuterol/Ipratropium (Duoneb 3.0-0.5 Mg/3 Ml) 3 ml NEB Q6H PRN PRN Reason: Shortness of Breath Last Admin: 09/10/16 07:26 Dose: 3 ml Atorvastatin Calcium (Lipitor) 40 mg PO WITHDINNER [facility] Last Admin: 09/09/16 17:23 Dose: 40 mg Enoxaparin Sodium (Lovenox) 40 mg SUBCUT DAILY@2100 [facility] Last Admin: 09/09/16 20:26 Dose: 40 mg Fish Oil (Fish Oil) 1 gm PO DAILY [facility] Last Admin: 09/09/16 09:35 Dose: 1 gm Furosemide (Lasix) 80 mg PO BID@08,14 [facility] Last Admin: 09/09/16 13:32 Dose: 80 mg Heparin Sodium (Porcine) (Heparin Lock Flush 10 Units/Ml) 50 unit FLUSH ASDIRECTED PRN PRN Reason: port-a cath flush Last Admin: 09/09/16 09:39 Dose: 50 unit Dextrose/Water (Dextrose 10% In Water) 1,000 mls @ 70 mls/hr IV ASDIRECTED [facility] Last Admin: 09/09/16 02:59 Dose: 70 mls/hr Lisinopril (Prinivil) 2.5 mg PO DAILY [facility] Last Admin: 09/09/16 09:35 Dose: 2.5 mg Lorazepam (Ativan) 0.5 mg PO Q8H PRN PRN Reason: Anxiety Last Admin: 09/09/16 19:54 Dose: 0.5 mg Metformin HCl (Glucophage Xr) 1,000 mg PO BIDMEALS [facility] Last Admin: 09/07/16 08:19 Dose: 1,000 mg Ondansetron HCl (Zofran Odt) 4 mg PO Q4H PRN PRN Reason: Nausea/Vomiting Last Admin: 09/09/16 13:29 Dose: 4 mg Pantoprazole Sodium (Protonix) 40 mg PO 0600 [facility] Last Admin: 09/10/16 05:14 Dose: 40 mg Polysaccharide Iron Complex (Ferrex 150) 150 mg PO TID [facility] Last Admin: 09/09/16 20:30 Dose: 150 mg Tramadol HCl (Ultram) 100 mg PO TID [facility] Last Admin: 09/09/16 20:27 Dose: 100 mg Discontinued Medications Acetaminophen (Tylenol Extra Strength) 1,000 mg PO TID PRN PRN Reason: Pain Last Admin: 09/08/16 16:16 Dose: 1,000 mg Acetaminophen (Tylenol Extra Strength) 1,000 mg PO ONETIME ONE Stop: 09/05/16 10:16 Last Admin: 09/05/16 10:07 Dose: 1,000 mg Bupivacaine HCl (Marcaine 0.5%) 10 ml .XX .STK-MED ONE Stop: 09/04/16 10:56 Last Admin: 09/04/16 10:55 Dose: 10 ml Cefazolin Sodium (Ancef) 1 gm IV .STK-MED ONE Stop: 09/04/16 11:01 Dextrose/Water (Dextrose 50% In Water) 25 ml IVPUSH ONETIME ONE Stop: 09/07/16 14:08 Last Admin: 09/07/16 14:10 Dose: 25 ml Dextrose/Water (Dextrose 50% In Water) 50 ml IVPUSH ONETIME ONE Stop: 09/07/16 16:42 Last Admin: 09/07/16 16:45 Dose: 50 ml Enoxaparin Sodium (Lovenox) 40 mg SUBCUT DAILY [facility] Last Admin: 09/03/16 21:47 Dose: 40 mg Furosemide (Lasix) 40 mg PO ONETIME ONE Stop: 09/04/16 05:43 Last Admin: 09/04/16 05:53 Dose: 40 mg Furosemide (Lasix) Confirm Administered Dose 40 mg .ROUTE .STK-MED ONE Stop: 09/04/16 05:49 Last Admin: 09/04/16 05:52 Dose: Not Given Furosemide (Lasix) 20 mg IVPUSH ASDIRECTED ONE Stop: 09/04/16 12:36 Last Admin: 09/04/16 17:38 Dose: Not Given Furosemide (Lasix) 20 mg IVPUSH ASDIRECTED ONE Stop: 09/04/16 17:46 Last Admin: 09/04/16 17:37 Dose: 20 mg Furosemide (Lasix) 20 mg IVPUSH DAILY [facility] Last Admin: 09/06/16 08:40 Dose: 20 mg Furosemide (Lasix) 20 mg IVPUSH ONETIME ONE Stop: 09/05/16 13:46 Last Admin: 09/05/16 13:59 Dose: 20 mg Furosemide (Lasix) 40 mg PO ONETIME ONE Stop: 09/07/16 08:28 Last Admin: 09/07/16 08:34 Dose: 40 mg Furosemide (Lasix) 20 mg IVPUSH ONETIME ONE Stop: 09/07/16 13:01 Last Admin: 09/07/16 18:29 Dose: 20 mg Furosemide (Lasix) 60 mg IVPUSH NOW ONE Stop: 09/09/16 09:19 Last Admin: 09/09/16 09:29 Dose: 60 mg Gabapentin (Neurontin) 600 mg PO BID@0800,1400 [facility] Last Admin: 09/04/16 15:13 Dose: Not Given Gabapentin (Neurontin) 900 mg PO BEDTIME [facility] Last Admin: 09/04/16 22:20 Dose: 900 mg Glimepiride (Glimepiride) 4 mg PO BRK [facility] Last Admin: 09/06/16 09:00 Dose: Not Given Glimepiride (Amaryl) 4 mg PO BIDMEALS [facility] Last Admin: 09/05/16 17:54 Dose: 4 mg Glimepiride (Amaryl) Confirm Administered Dose 2 mg .ROUTE .STK-MED ONE Stop: 09/05/16 17:58 Last Admin: 09/05/16 19:22 Dose: Not Given Glimepiride (Glimepiride) 4 mg PO BIDMEALS [facility] Last Admin: 09/07/16 08:19 Dose: 4 mg Heparin Sodium (Porcine) (Heparin Lock Flush 100 Units/Ml Syringe) 10 units .XX .STK-MED ONE Stop: 09/04/16 10:54 Last Admin: 09/04/16 10:53 Dose: 10 units Hydrocodone Bitartrate/Ibuprofen (Vicoprofen) 1 tab PO Q4H PRN PRN Reason: Pain Last Admin: 09/09/16 08:02 Dose: 1 tab Sodium Chloride (Normal Saline) 1,000 mls @ 50 mls/hr IV ASDIRECTED [facility] Last Admin: 09/03/16 19:16 Dose: 50 mls/hr Sodium Chloride (Normal Saline) 250 mls @ 100 mls/hr IV ASDIRECTED [facility] Last Admin: 09/04/16 14:30 Dose: 100 mls/hr Sodium Chloride (Normal Saline) 250 mls @ 100 mls/hr IV ASDIRECTED [facility] Sodium Chloride (Normal Saline) 250 mls @ 100 mls/hr IV ASDIRECTED [facility] Sodium Chloride (Normal Saline) 250 mls @ 100 mls/hr IV ASDIRECTED [facility] Sodium Chloride (Normal Saline) 250 mls @ 100 mls/hr IV ASDIRECTED [facility] Last Admin: 09/07/16 18:40 Dose: 100 mls/hr Ketamine HCl (Ketalar) 45 mg IV .STK-MED ONE Stop: 09/04/16 11:01 Lidocaine HCl (Xylocaine 1%) 10 ml .XX .STK-MED ONE Stop: 09/04/16 10:55 Last Admin: 09/04/16 10:54 Dose: 10 ml Lisinopril (Prinivil) 2.5 mg PO DAILY [facility] Last Admin: 09/06/16 09:00 Dose: Not Given Metformin HCl (Glucophage) 1,000 mg PO BIDM [facility] Last Admin: 09/05/16 07:58 Dose: 1,000 mg Metformin HCl (Glucophage) Confirm Administered Dose 500 mg .ROUTE .STK-MED ONE Stop: 09/05/16 17:48 Last Admin: 09/05/16 19:22 Dose: Not Given Metformin HCl (Glucophage Xr) Confirm Administered Dose 500 mg .ROUTE .STK-MED ONE Stop: 09/05/16 17:53 Last Admin: 09/05/16 19:21 Dose: Not Given Metolazone (Zaroxolyn) 2.5 mg PO MOWEFR [facility] Last Admin: 09/04/16 01:22 Dose: Not Given Metolazone (Zaroxolyn) 2.5 mg PO MOWEFR [facility] Last Admin: 09/03/16 21:51 Dose: 2.5 mg Metolazone (Zaroxolyn) 2.5 mg PO MoWeFr@0600 [facility] Metolazone (Zaroxolyn) 5 mg PO ONETIME ONE Stop: 09/09/16 07:31 Last Admin: 09/09/16 08:02 Dose: 5 mg Metoprolol Succinate (Toprol Xl) 12.5 mg PO DAILY [facility] Last Admin: 09/04/16 15:14 Dose: Not Given Midazolam HCl (Versed 1 Mg/Ml) 2 mg IV .STK-MED ONE Stop: 09/04/16 11:01 Mometasone Furoate (Asmanex Hfa) 0 gm INH BID [facility] Last Admin: 09/06/16 09:00 Dose: Not Given Nitrofurantoin Macrocrystals (Macrobid) 100 mg PO BID [facility] Last Admin: 09/04/16 15:14 Dose: Not Given Non-Formulary Medication (Fluticasone Propionate [Flovent Hfa 220 Mcg]) 2 puff INH BID [facility] Last Admin: 09/04/16 00:15 Dose: Not Given Pantoprazole Sodium (Protonix) 40 mg PO DAILY [facility] Last Admin: 09/04/16 15:14 Dose: Not Given Polyethylene Glycol (Miralax) 17 gm PO DAILY PRN PRN Reason: Constipation Prednisone (Prednisone) 20 mg PO BIDMEALS [facility] Prednisone (Prednisone) 20 mg PO DAILY [facility] Propofol (Diprivan 20 Ml) 150 mg IV .STK-MED ONE Stop: 09/04/16 11:01 Sodium Chloride (Saline Flush) 10 ml FLUSH ASDIRECTED PRN PRN Reason: Keep Vein Open Last Admin: 09/07/16 21:28 Dose: 10 ml Tramadol HCl (Ultram) 100 mg PO BID [facility] Last Admin: 09/04/16 15:15 Dose: Not Given Tramadol HCl (Ultram) 100 mg PO Q6H PRN PRN Reason: Pain Last Admin: 09/05/16 05:06 Dose: 100 mg Tramadol HCl (Ultram) 100 mg PO Q6H PRN PRN Reason: Pain Last Admin: 09/09/16 09:36 Dose: 100 mg - Exam Quality Assessment: supplemental oxygen General: alert, oriented, cooperative Neck: supple Lungs: Clear to auscultation, Normal respiratory effort. No: Crackles, Rales, Rhonchi, Rub Cardiovascular: regular rate, regular rhythm. No: no murmurs Extremities: edema Neurological: no new focal deficit Psy/Mental Status: alert, normal affect, normal mood - Problem List & Annotations (1) Anemia SNOMED Code(s): 451786210 Code(s): D64.9 - ANEMIA, UNSPECIFIED Status: Acute Current Visit: Yes Qualifiers: Anemia type: unspecified type Qualified Code(s): D64.9 - Anemia, unspecified (2) CHF (congestive heart failure) SNOMED Code(s): 75957495 Code(s): I50.9 - HEART FAILURE, UNSPECIFIED Status: Acute Priority: High Current Visit: No Qualifiers: Congestive heart failure chronicity: chronic Annotation/Comment:: On oral diuretics, dieuresing well. CXR improved. Had long discussion regarding fluid restriction, monitoring weights and adding in diuretics if weight increases. (3) COPD (chronic obstructive pulmonary disease) SNOMED Code(s): 28158222 Code(s): J44.9 - CHRONIC OBSTRUCTIVE PULMONARY DISEASE, UNSPECIFIED Status : Acute Current Visit: No Qualifiers: COPD type: unspecified COPD Qualified Code(s): J44.9 - Chronic obstructive pulmonary disease, unspecified (4) Hypoglycemia SNOMED Code(s): 555147803 Code(s): E16.2 - HYPOGLYCEMIA, UNSPECIFIED Status: Acute Current Visit: Yes (5) Rib pain on right side SNOMED Code(s): 290776422 Code(s): R07.81 - PLEURODYNIA Status: Acute Current Visit: Yes (6) Palliative care status SNOMED Code(s): 783191647 Code(s): Z51.5 - ENCOUNTER FOR PALLIATIVE CARE Status: Acute Current Visit: Yes - Problem List Review Problem List Initiated/Reviewed/Updated: Yes - My Orders Last 24 Hours: My Active Orders 09/09/16 07:16 Convert IV to Saline Lock [OM.PC] Routine 09/09/16 14:00 traMADol [Ultram] 100 mg PO TID 09/09/16 18:58 LORazepam [Ativan] 0.5 mg PO Q8H PRN 09/10/16 08:00 HEMOGLOBIN/HEMATOCRIT,HH [HEME] Routine - Plan Plan:: 1. restart metformin at previous dose. Continue to hold her sulfonylurea. 2. A care conference was held yesterday. Patient does not qualify for swing bed. She is not healthy enough to go home. [facility] placement will be sought. 3. Check H&H today 4. Discontinue daily and change vitals every shift. Patient is improved.
[2016-09-10] MEDS: Furosemide 80 MG Tab PO SCH ×2 (07:56→14:26)
[2016-09-10] MEDS: Fish Oil/Omega-3 Fatty Acids 1 Gm Cap PO SCH (09:31)
[2016-09-10] MEDS: metFORMIN 500 MG Tab.ER PO SCH ×2 (09:31→17:55)
[2016-09-10] MEDS: Acetaminophen 500 MG Tab PO SCH ×3 (09:31→21:13)
[2016-09-10] MEDS: Iron Polysaccharides Complex 150 MG Cap PO SCH ×3 (09:31→21:12)
[2016-09-10] MEDS: Lisinopril 2.5 MG Tab PO SCH (09:31)
[2016-09-10] MEDS: traMADol 50 MG Tab PO SCH ×3 (09:35→21:11)
[2016-09-10] MEDS: atorvaSTATin 40 MG Tab PO SCH (17:54)
[2016-09-10] MEDS: Ondansetron 4 MG Tab.DIS PO PRN (18:41)
[2016-09-10] MEDS: Enoxaparin 40 MG/0.4 ML Syringe SUBCUT SCH (21:08)
[2016-09-11] MEDS: Acetaminophen 325 MG Tab PO PRN (04:12)
[2016-09-11] MEDS: Pantoprazole 40 MG Tab.CR PO SCH (05:31)
[2016-09-11] MEDS: Acetaminophen 500 MG Tab PO SCH ×3 (08:18→20:22)
[2016-09-11] MEDS: metFORMIN 500 MG Tab.ER PO SCH ×2 (08:20→19:14)
[2016-09-11] MEDS: Albuterol/Ipratropium 3.0-0.5 MG/3 ML Neb Soln NEB PRN ×2 (08:20→13:15)
[2016-09-11] MEDS: Furosemide 80 MG Tab PO SCH ×2 (08:21→13:39)
[2016-09-11] MEDS: Iron Polysaccharides Complex 150 MG Cap PO SCH ×3 (08:22→20:21)
[2016-09-11] MEDS: Fish Oil/Omega-3 Fatty Acids 1 Gm Cap PO SCH (08:22)
[2016-09-11] MEDS: Lisinopril 2.5 MG Tab PO SCH (08:23)
[2016-09-11] MEDS: traMADol 50 MG Tab PO SCH ×3 (08:26→20:20)
[2016-09-11] MEDS: Heparin Sodium 10 Units/ML 5 ML Syringe FLUSH PRN (08:48)
[2016-09-11] MEDS: Sodium Chloride 0.9% 10 ML Syringe FLUSH SCH (08:48)
--- NOTE | 2016-09-11 10:42 | PCM.PN ---
- General Info Date of Service: 09/11/16 Admission Dx/Problem (Free Text): patient is the same today. Still a little bit shortness of breath that hasn't changed. Select swelling. No chest pain, fevers or chills. - Patient Data Vitals - most recent: Last Vital Signs Temp 97.3 F 09/11/16 07:42 Pulse 85 09/11/16 07:42 Resp 18 09/11/16 07:42 BP 100/64 09/11/16 08:23 Pulse Ox 91 L 09/11/16 08:15 Weight - most recent: 234 lb 6 oz I&O - last 24 hours: Intake & Output 09/10/16 09/11/16 09/11/16 22:59 06:59 14:59 Intake Total 500 100 Output Total 1625 895 Balance -1125 -795 Lab Results last 24 hrs: Laboratory Results - last 24 hr 09/10/16 09/10/16 09/10/16 Range/Units 12:57 17:15 21:07 POC Glucose 193 H 153 H 171 H (80-116) mg/dL 09/11/16 Range/Units 05:38 POC Glucose 116 (80-116) mg/dL Med Orders - Current: Current Medications Acetaminophen (Tylenol Extra Strength) 1,000 mg PO TID [facility] Last Admin: 09/11/16 08:18 Dose: 1,000 mg Acetaminophen (Tylenol) 650 mg PO Q4H PRN PRN Reason: Pain (mild 1-3) Last Admin: 09/11/16 04:12 Dose: 650 mg Albuterol (Ventolin Hfa) 0 gm INH Q4H PRN PRN Reason: Shortness of Breath Albuterol/Ipratropium (Duoneb 3.0-0.5 Mg/3 Ml) 3 ml NEB Q6H PRN PRN Reason: Shortness of Breath Last Admin: 09/10/16 14:11 Dose: 3 ml Atorvastatin Calcium (Lipitor) 40 mg PO WITHDINNER [facility] Last Admin: 09/10/16 17:54 Dose: 40 mg Enoxaparin Sodium (Lovenox) 40 mg SUBCUT DAILY@2100 [facility] Last Admin: 09/10/16 21:08 Dose: 40 mg Fish Oil (Fish Oil) 1 gm PO DAILY [facility] Last Admin: 09/11/16 08:22 Dose: 1 gm Furosemide (Lasix) 80 mg PO BID@08,14 [facility] Last Admin: 09/11/16 08:21 Dose: 80 mg Heparin Sodium (Porcine) (Heparin Lock Flush 10 Units/Ml) 50 unit FLUSH ASDIRECTED PRN PRN Reason: port-a cath flush Last Admin: 09/11/16 08:48 Dose: 50 unit Dextrose/Water (Dextrose 10% In Water) 1,000 mls @ 70 mls/hr IV ASDIRECTED [facility] Last Admin: 09/09/16 02:59 Dose: 70 mls/hr Lisinopril (Prinivil) 2.5 mg PO DAILY [facility] Last Admin: 09/11/16 08:23 Dose: 2.5 mg Lorazepam (Ativan) 0.5 mg PO Q8H PRN PRN Reason: Anxiety Last Admin: 09/10/16 21:13 Dose: 0.5 mg Metformin HCl (Glucophage Xr) 1,000 mg PO BIDMEALS [facility] Last Admin: 09/11/16 08:20 Dose: 1,000 mg Ondansetron HCl (Zofran Odt) 4 mg PO Q4H PRN PRN Reason: Nausea/Vomiting Last Admin: 09/10/16 18:41 Dose: 4 mg Pantoprazole Sodium (Protonix) 40 mg PO 0600 [facility] Last Admin: 09/11/16 05:31 Dose: 40 mg Polysaccharide Iron Complex (Ferrex 150) 150 mg PO TID [facility] Last Admin: 09/11/16 08:22 Dose: 150 mg Sodium Chloride (Saline Flush) 10 ml FLUSH ASDIRECTED [facility] Last Admin: 09/11/16 08:48 Dose: 10 ml Tramadol HCl (Ultram) 100 mg PO TID [facility] Last Admin: 09/11/16 08:26 Dose: 100 mg Discontinued Medications Acetaminophen (Tylenol Extra Strength) 1,000 mg PO TID PRN PRN Reason: Pain Last Admin: 09/08/16 16:16 Dose: 1,000 mg Acetaminophen (Tylenol Extra Strength) 1,000 mg PO ONETIME ONE Stop: 09/05/16 10:16 Last Admin: 09/05/16 10:07 Dose: 1,000 mg Bupivacaine HCl (Marcaine 0.5%) 10 ml .XX .STK-MED ONE Stop: 09/04/16 10:56 Last Admin: 09/04/16 10:55 Dose: 10 ml Cefazolin Sodium (Ancef) 1 gm IV .STK-MED ONE Stop: 09/04/16 11:01 Dextrose/Water (Dextrose 50% In Water) 25 ml IVPUSH ONETIME ONE Stop: 09/07/16 14:08 Last Admin: 09/07/16 14:10 Dose: 25 ml Dextrose/Water (Dextrose 50% In Water) 50 ml IVPUSH ONETIME ONE Stop: 09/07/16 16:42 Last Admin: 09/07/16 16:45 Dose: 50 ml Enoxaparin Sodium (Lovenox) 40 mg SUBCUT DAILY [facility] Last Admin: 09/03/16 21:47 Dose: 40 mg Furosemide (Lasix) 40 mg PO ONETIME ONE Stop: 09/04/16 05:43 Last Admin: 09/04/16 05:53 Dose: 40 mg Furosemide (Lasix) Confirm Administered Dose 40 mg .ROUTE .[facility] ONE Stop: 09/04/16 05:49 Last Admin: 09/04/16 05:52 Dose: Not Given Furosemide (Lasix) 20 mg IVPUSH ASDIRECTED ONE Stop: 09/04/16 12:36 Last Admin: 09/04/16 17:38 Dose: Not Given Furosemide (Lasix) 20 mg IVPUSH ASDIRECTED ONE Stop: 09/04/16 17:46 Last Admin: 09/04/16 17:37 Dose: 20 mg Furosemide (Lasix) 20 mg IVPUSH DAILY [facility] Last Admin: 09/06/16 08:40 Dose: 20 mg Furosemide (Lasix) 20 mg IVPUSH ONETIME ONE Stop: 09/05/16 13:46 Last Admin: 09/05/16 13:59 Dose: 20 mg Furosemide (Lasix) 40 mg PO ONETIME ONE Stop: 09/07/16 08:28 Last Admin: 09/07/16 08:34 Dose: 40 mg Furosemide (Lasix) 20 mg IVPUSH ONETIME ONE Stop: 09/07/16 13:01 Last Admin: 09/07/16 18:29 Dose: 20 mg Furosemide (Lasix) 60 mg IVPUSH NOW ONE Stop: 09/09/16 09:19 Last Admin: 09/09/16 09:29 Dose: 60 mg Gabapentin (Neurontin) 600 mg PO BID@0800,1400 [facility] Last Admin: 09/04/16 15:13 Dose: Not Given Gabapentin (Neurontin) 900 mg PO BEDTIME [facility] Last Admin: 09/04/16 22:20 Dose: 900 mg Glimepiride (Glimepiride) 4 mg PO BRK [facility] Last Admin: 09/06/16 09:00 Dose: Not Given Glimepiride (Amaryl) 4 mg PO BIDMEALS [facility] Last Admin: 09/05/16 17:54 Dose: 4 mg Glimepiride (Amaryl) Confirm Administered Dose 2 mg .ROUTE .STK-MED ONE Stop: 09/05/16 17:58 Last Admin: 09/05/16 19:22 Dose: Not Given Glimepiride (Glimepiride) 4 mg PO BIDMEALS [facility] Last Admin: 09/07/16 08:19 Dose: 4 mg Heparin Sodium (Porcine) (Heparin Lock Flush 100 Units/Ml Syringe) 10 units .XX .STK-MED ONE Stop: 09/04/16 10:54 Last Admin: 09/04/16 10:53 Dose: 10 units Hydrocodone Bitartrate/Ibuprofen (Vicoprofen) 1 tab PO Q4H PRN PRN Reason: Pain Last Admin: 09/09/16 08:02 Dose: 1 tab Sodium Chloride (Normal Saline) 1,000 mls @ 50 mls/hr IV ASDIRECTED [facility] Last Admin: 09/03/16 19:16 Dose: 50 mls/hr Sodium Chloride (Normal Saline) 250 mls @ 100 mls/hr IV ASDIRECTED [facility] Last Admin: 09/04/16 14:30 Dose: 100 mls/hr Sodium Chloride (Normal Saline) 250 mls @ 100 mls/hr IV ASDIRECTED [facility] Sodium Chloride (Normal Saline) 250 mls @ 100 mls/hr IV ASDIRECTED [facility] Sodium Chloride (Normal Saline) 250 mls @ 100 mls/hr IV ASDIRECTED [facility] Sodium Chloride (Normal Saline) 250 mls @ 100 mls/hr IV ASDIRECTED [facility] Last Admin: 09/07/16 18:40 Dose: 100 mls/hr Ketamine HCl (Ketalar) 45 mg IV .STK-MED ONE Stop: 09/04/16 11:01 Lidocaine HCl (Xylocaine 1%) 10 ml .XX .STK-MED ONE Stop: 09/04/16 10:55 Last Admin: 09/04/16 10:54 Dose: 10 ml Lisinopril (Prinivil) 2.5 mg PO DAILY [facility] Last Admin: 09/06/16 09:00 Dose: Not Given Metformin HCl (Glucophage) 1,000 mg PO BIDM [facility] Last Admin: 09/05/16 07:58 Dose: 1,000 mg Metformin HCl (Glucophage) Confirm Administered Dose 500 mg .ROUTE .STK-MED ONE Stop: 09/05/16 17:48 Last Admin: 09/05/16 19:22 Dose: Not Given Metformin HCl (Glucophage Xr) Confirm Administered Dose 500 mg .ROUTE .STK-MED ONE Stop: 09/05/16 17:53 Last Admin: 09/05/16 19:21 Dose: Not Given Metolazone (Zaroxolyn) [facility] Last Admin: 09/04/16 01:22 Dose: Not Given Metolazone (Zaroxolyn) 2.5 mg PO MOWEFR [facility] Last Admin: 09/03/16 21:51 Dose: 2.5 mg Metolazone (Zaroxolyn) 2.5 mg PO MoWeFr@0600 [facility] Metolazone (Zaroxolyn) 5 mg PO ONETIME ONE Stop: 09/09/16 07:31 Last Admin: 09/09/16 08:02 Dose: 5 mg Metoprolol Succinate (Toprol Xl) 12.5 mg PO DAILY [facility] Last Admin: 09/04/16 15:14 Dose: Not Given Midazolam HCl (Versed 1 Mg/Ml) 2 mg IV .STK-MED ONE Stop: 09/04/16 11:01 Mometasone Furoate (Asmanex Hfa) 0 gm INH BID [facility] Last Admin: 09/06/16 09:00 Dose: Not Given Nitrofurantoin Macrocrystals (Macrobid) 100 mg PO BID [facility] Last Admin: 09/04/16 15:14 Dose: Not Given Non-Formulary Medication (Fluticasone Propionate [Flovent Hfa 220 Mcg]) 2 puff INH BID [facility] Last Admin: 09/04/16 00:15 Dose: Not Given Pantoprazole Sodium (Protonix) 40 mg PO DAILY [facility] Last Admin: 09/04/16 15:14 Dose: Not Given Polyethylene Glycol (Miralax) 17 gm PO DAILY PRN PRN Reason: Constipation Prednisone (Prednisone) 20 mg PO BIDMEALS [facility] Prednisone (Prednisone) 20 mg PO DAILY [facility] Propofol (Diprivan 20 Ml) 150 mg IV .STK-MED ONE Stop: 09/04/16 11:01 Sodium Chloride (Saline Flush) 10 ml FLUSH ASDIRECTED PRN PRN Reason: Keep Vein Open Last Admin: 09/07/16 21:28 Dose: 10 ml Tramadol HCl (Ultram) 100 mg PO BID [facility] Last Admin: 09/04/16 15:15 Dose: Not Given Tramadol HCl (Ultram) 100 mg PO Q6H PRN PRN Reason: Pain Last Admin: 09/05/16 05:06 Dose: 100 mg Tramadol HCl (Ultram) 100 mg PO Q6H PRN PRN Reason: Pain Last Admin: 09/09/16 09:36 Dose: 100 mg - Exam General: alert, oriented, cooperative Lungs: Clear to auscultation, Normal respiratory effort Extremities: edema - Problem List & Annotations (1) Anemia SNOMED Code(s): 135358723 Code(s): D64.9 - ANEMIA, UNSPECIFIED Status: Acute Current Visit: Yes Qualifiers: Anemia type: unspecified type Qualified Code(s): D64.9 - Anemia, unspecified (2) CHF (congestive heart failure) SNOMED Code(s): 70795743 Code(s): I50.9 - HEART FAILURE, UNSPECIFIED Status: Acute Priority: High Current Visit: No Qualifiers: Congestive heart failure chronicity: chronic Annotation/Comment:: On oral diuretics, dieuresing well. CXR improved. Had long discussion regarding fluid restriction, monitoring weights and adding in diuretics if weight increases. (3) COPD (chronic obstructive pulmonary disease) SNOMED Code(s): 23077053 Code(s): J44.9 - CHRONIC OBSTRUCTIVE PULMONARY DISEASE, UNSPECIFIED Status : Acute Current Visit: No Qualifiers: COPD type: unspecified COPD Qualified Code(s): J44.9 - Chronic obstructive pulmonary disease, unspecified (4) Hypoglycemia SNOMED Code(s): 816889108 Code(s): E16.2 - HYPOGLYCEMIA, UNSPECIFIED Status: Acute Current Visit: Yes (5) Rib pain on right side SNOMED Code(s): 859924478 Code(s): R07.81 - PLEURODYNIA Status: Acute Current Visit: Yes (6) Palliative care status SNOMED Code(s): 763335085 Code(s): Z51.5 - ENCOUNTER FOR PALLIATIVE CARE Status: Acute Current Visit: Yes - Problem List Review Problem List Initiated/Reviewed/Updated: Yes - My Orders Last 24 Hours: My Active Orders 09/11/16 09:00 Sodium Chloride 0.9% [Saline Flush] 10 ml FLUSH ASDIRECTED - Plan Plan:: 1. continue current care. 2. Awaiting residential placement.
[2016-09-11] MEDS: Ondansetron 4 MG Tab.DIS PO PRN (12:55)
[2016-09-11] MEDS: LORazepam 0.5 MG Tab PO PRN ×2 (13:45→20:29)
[2016-09-11] MEDS: atorvaSTATin 40 MG Tab PO SCH (19:14)
[2016-09-11] MEDS: Magnesium Hydroxide 400 MG/5 ML Susp 30 ML Cup PO PRN (20:18)
[2016-09-11] MEDS: Enoxaparin 40 MG/0.4 ML Syringe SUBCUT SCH (20:21)
[2016-09-12] MEDS: Acetaminophen 325 MG Tab PO PRN (05:39)
[2016-09-12] MEDS: Pantoprazole 40 MG Tab.CR PO SCH (06:37)
[2016-09-12] MEDS: Albuterol/Ipratropium 3.0-0.5 MG/3 ML Neb Soln NEB PRN ×2 (07:35→13:45)
--- NOTE | 2016-09-12 08:25 | PCM.PN ---
- General Info Date of Service: 09/12/16 Admission Dx/Problem (Free Text): The patient denies chest pain. She states her breathing has gotten better since she's coughed up some phlegm. - Patient Data Vitals - most recent: Last Vital Signs Temp 98.1 F 09/12/16 00:00 Pulse 80 09/12/16 07:36 Resp 22 H 09/12/16 00:00 BP 115/60 09/12/16 00:00 Pulse Ox 89 L 09/12/16 07:36 Weight - most recent: 234 lb 6 oz I&O - last 24 hours: Intake & Output 09/11/16 09/12/16 09/12/16 22:59 06:59 14:59 Output Total 1226 650 Balance -1226 -650 Lab Results last 24 hrs: Laboratory Results - last 24 hr 09/11/16 09/11/16 09/12/16 Range/Units 11:15 18:09 06:35 POC Glucose 160 H 126 H 119 H (80-116) mg/dL Med Orders - Current: Current Medications Acetaminophen (Tylenol Extra Strength) 1,000 mg PO TID [facility] Last Admin: 09/11/16 20:22 Dose: 1,000 mg Acetaminophen (Tylenol) 650 mg PO Q4H PRN PRN Reason: Pain (mild 1-3) Last Admin: 09/12/16 05:39 Dose: 650 mg Albuterol (Ventolin Hfa) 0 gm INH Q4H PRN PRN Reason: Shortness of Breath Albuterol/Ipratropium (Duoneb 3.0-0.5 Mg/3 Ml) 3 ml NEB Q6H PRN PRN Reason: Shortness of Breath Last Admin: 09/12/16 07:35 Dose: 3 ml Atorvastatin Calcium (Lipitor) 40 mg PO WITHDINNER [facility] Last Admin: 09/11/16 19:14 Dose: 40 mg Bisacodyl (Dulcolax) 10 mg RECTAL DAILY PRN PRN Reason: Constipation Enoxaparin Sodium (Lovenox) 40 mg SUBCUT DAILY@2100 [facility] Last Admin: 09/11/16 20:21 Dose: 40 mg Fish Oil (Fish Oil) 1 gm PO DAILY [facility] Last Admin: 09/11/16 08:22 Dose: 1 gm Furosemide (Lasix) 80 mg PO BID@08,14 [facility] Last Admin: 09/11/16 13:39 Dose: 80 mg Heparin Sodium (Porcine) (Heparin Lock Flush 10 Units/Ml) 50 unit FLUSH ASDIRECTED PRN PRN Reason: port-a cath flush Last Admin: 09/11/16 08:48 Dose: 50 unit Dextrose/Water (Dextrose 10% In Water) 1,000 mls @ 70 mls/hr IV ASDIRECTED [facility] Last Admin: 09/09/16 02:59 Dose: 70 mls/hr Lisinopril (Prinivil) 2.5 mg PO DAILY [facility] Last Admin: 09/11/16 08:23 Dose: 2.5 mg Lorazepam (Ativan) 0.5 mg PO Q8H PRN PRN Reason: Anxiety Last Admin: 09/11/16 20:29 Dose: 0.5 mg Magnesium Hydroxide (Milk Of Magnesia) 30 ml PO DAILY PRN PRN Reason: Constipation Last Admin: 09/11/16 20:18 Dose: 30 ml Metformin HCl (Glucophage Xr) 1,000 mg PO BIDMEALS [facility] Last Admin: 09/11/16 19:14 Dose: 1,000 mg Ondansetron HCl (Zofran Odt) 4 mg PO Q4H PRN PRN Reason: Nausea/Vomiting Last Admin: 09/11/16 12:55 Dose: 4 mg Pantoprazole Sodium (Protonix) 40 mg PO 0600 [facility] Last Admin: 09/12/16 06:37 Dose: 40 mg Polysaccharide Iron Complex (Ferrex 150) 150 mg PO TID [facility] Last Admin: 09/11/16 20:21 Dose: 150 mg Sodium Chloride (Saline Flush) 10 ml FLUSH ASDIRECTED [facility] Last Admin: 09/11/16 08:48 Dose: 10 ml Tramadol HCl (Ultram) 100 mg PO TID [facility] Last Admin: 09/11/16 20:20 Dose: 100 mg Discontinued Medications Acetaminophen (Tylenol Extra Strength) 1,000 mg PO TID PRN PRN Reason: Pain Last Admin: 09/08/16 16:16 Dose: 1,000 mg Acetaminophen (Tylenol Extra Strength) 1,000 mg PO ONETIME ONE Stop: 09/05/16 10:16 Last Admin: 09/05/16 10:07 Dose: 1,000 mg Bupivacaine HCl (Marcaine 0.5%) 10 ml .XX .STK-MED ONE Stop: 09/04/16 10:56 Last Admin: 09/04/16 10:55 Dose: 10 ml Cefazolin Sodium (Ancef) 1 gm IV .STK-MED ONE Stop: 09/04/16 11:01 Dextrose/Water (Dextrose 50% In Water) 25 ml IVPUSH ONETIME ONE Stop: 09/07/16 14:08 Last Admin: 09/07/16 14:10 Dose: 25 ml Dextrose/Water (Dextrose 50% In Water) 50 ml IVPUSH ONETIME ONE Stop: 09/07/16 16:42 Last Admin: 09/07/16 16:45 Dose: 50 ml Enoxaparin Sodium (Lovenox) 40 mg SUBCUT DAILY [facility] Last Admin: 09/03/16 21:47 Dose: 40 mg Furosemide (Lasix) 40 mg PO ONETIME ONE Stop: 09/04/16 05:43 Last Admin: 09/04/16 05:53 Dose: 40 mg Furosemide (Lasix) Confirm Administered Dose 40 mg .ROUTE .[facility] ONE Stop: 09/04/16 05:49 Last Admin: 09/04/16 05:52 Dose: Not Given Furosemide (Lasix) 20 mg IVPUSH ASDIRECTED ONE Stop: 09/04/16 12:36 Last Admin: 09/04/16 17:38 Dose: Not Given Furosemide (Lasix) 20 mg IVPUSH ASDIRECTED ONE Stop: 09/04/16 17:46 Last Admin: 09/04/16 17:37 Dose: 20 mg Furosemide (Lasix) 20 mg IVPUSH DAILY [facility] Last Admin: 09/06/16 08:40 Dose: 20 mg Furosemide (Lasix) 20 mg IVPUSH ONETIME ONE Stop: 09/05/16 13:46 Last Admin: 09/05/16 13:59 Dose: 20 mg Furosemide (Lasix) 40 mg PO ONETIME ONE Stop: 09/07/16 08:28 Last Admin: 09/07/16 08:34 Dose: 40 mg Furosemide (Lasix) 20 mg IVPUSH ONETIME ONE Stop: 09/07/16 13:01 Last Admin: 09/07/16 18:29 Dose: 20 mg Furosemide (Lasix) 60 mg IVPUSH NOW ONE Stop: 09/09/16 09:19 Last Admin: 09/09/16 09:29 Dose: 60 mg Gabapentin (Neurontin) 600 mg PO BID@0800,1400 [facility] Last Admin: 09/04/16 15:13 Dose: Not Given Gabapentin (Neurontin) 900 mg PO BEDTIME [facility] Last Admin: 09/04/16 22:20 Dose: 900 mg Glimepiride (Glimepiride) 4 mg PO BRK [facility] Last Admin: 09/06/16 09:00 Dose: Not Given Glimepiride (Amaryl) 4 mg PO BIDMEALS [facility] Last Admin: 09/05/16 17:54 Dose: 4 mg Glimepiride (Amaryl) Confirm Administered Dose 2 mg .ROUTE .STK-MED ONE Stop: 09/05/16 17:58 Last Admin: 09/05/16 19:22 Dose: Not Given Glimepiride (Glimepiride) 4 mg PO BIDMEALS [facility] Last Admin: 09/07/16 08:19 Dose: 4 mg Heparin Sodium (Porcine) (Heparin Lock Flush 100 Units/Ml Syringe) 10 units .XX .STK-MED ONE Stop: 09/04/16 10:54 Last Admin: 09/04/16 10:53 Dose: 10 units Hydrocodone Bitartrate/Ibuprofen (Vicoprofen) 1 tab PO Q4H PRN PRN Reason: Pain Last Admin: 09/09/16 08:02 Dose: 1 tab Sodium Chloride (Normal Saline) 1,000 mls @ 50 mls/hr IV ASDIRECTED [facility] Last Admin: 09/03/16 19:16 Dose: 50 mls/hr Sodium Chloride (Normal Saline) 250 mls @ 100 mls/hr IV ASDIRECTED [facility] Last Admin: 09/04/16 14:30 Dose: 100 mls/hr Sodium Chloride (Normal Saline) 250 mls @ 100 mls/hr IV ASDIRECTED [facility] Sodium Chloride (Normal Saline) 250 mls @ 100 mls/hr IV ASDIRECTED [facility] Sodium Chloride (Normal Saline) 250 mls @ 100 mls/hr IV ASDIRECTED [facility] Sodium Chloride (Normal Saline) 250 mls @ 100 mls/hr IV ASDIRECTED [facility] Last Admin: 09/07/16 18:40 Dose: 100 mls/hr Ketamine HCl (Ketalar) 45 mg IV .STK-MED ONE Stop: 09/04/16 11:01 Lidocaine HCl (Xylocaine 1%) 10 ml .XX .STK-MED ONE Stop: 09/04/16 10:55 Last Admin: 09/04/16 10:54 Dose: 10 ml Lisinopril (Prinivil) 2.5 mg PO DAILY [facility] Last Admin: 09/06/16 09:00 Dose: Not Given Metformin HCl (Glucophage) 1,000 mg PO BIDM [facility] Last Admin: 09/05/16 07:58 Dose: 1,000 mg Metformin HCl (Glucophage) Confirm Administered Dose 500 mg .ROUTE .STK-MED ONE Stop: 09/05/16 17:48 Last Admin: 09/05/16 19:22 Dose: Not Given Metformin HCl (Glucophage Xr) Confirm Administered Dose 500 mg .ROUTE .STK-MED ONE Stop: 09/05/16 17:53 Last Admin: 09/05/16 19:21 Dose: Not Given Metolazone ([facility]ar[facility]ol[facility]) [facility] Last Admin: 09/04/16 01:22 Dose: Not Given Metolazone (Zaroxolyn) 2.5 mg PO MOWEFR [facility] Last Admin: 09/03/16 21:51 Dose: 2.5 mg Metolazone (Zaroxolyn) 2.5 mg PO MoWeFr@0600 [facility] Metolazone (Zaroxolyn) 5 mg PO ONETIME ONE Stop: 09/09/16 07:31 Last Admin: 09/09/16 08:02 Dose: 5 mg Metoprolol Succinate (Toprol Xl) 12.5 mg PO DAILY [facility] Last Admin: 09/04/16 15:14 Dose: Not Given Midazolam HCl (Versed 1 Mg/Ml) 2 mg IV .STK-MED ONE Stop: 09/04/16 11:01 Mometasone Furoate (Asmanex Hfa) 0 gm INH BID [facility] Last Admin: 09/06/16 09:00 Dose: Not Given Nitrofurantoin Macrocrystals (Macrobid) 100 mg PO BID [facility] Last Admin: 09/04/16 15:14 Dose: Not Given Non-Formulary Medication (Fluticasone Propionate [Flovent Hfa 220 Mcg]) 2 puff INH BID [facility] Last Admin: 09/04/16 00:15 Dose: Not Given Pantoprazole Sodium (Protonix) 40 mg PO DAILY [facility] Last Admin: 09/04/16 15:14 Dose: Not Given Polyethylene Glycol (Miralax) 17 gm PO DAILY PRN PRN Reason: Constipation Prednisone (Prednisone) 20 mg PO BIDMEALS [facility] Prednisone (Prednisone) 20 mg PO DAILY [facility] Propofol (Diprivan 20 Ml) 150 mg IV .STK-MED ONE Stop: 09/04/16 11:01 Sodium Chloride (Saline Flush) 10 ml FLUSH ASDIRECTED PRN PRN Reason: Keep Vein Open Last Admin: 09/07/16 21:28 Dose: 10 ml Tramadol HCl (Ultram) 100 mg PO BID [facility] Last Admin: 09/04/16 15:15 Dose: Not Given Tramadol HCl (Ultram) 100 mg PO Q6H PRN PRN Reason: Pain Last Admin: 09/05/16 05:06 Dose: 100 mg Tramadol HCl (Ultram) 100 mg PO Q6H PRN PRN Reason: Pain Last Admin: 09/09/16 09:36 Dose: 100 mg - Exam General: alert, oriented, cooperative Lungs: Clear to auscultation, Normal respiratory effort Cardiovascular: regular rate, regular rhythm, no murmurs Extremities: edema (Improved) - Problem List & Annotations (1) Anemia SNOMED Code(s): 060544209 Code(s): D64.9 - ANEMIA, UNSPECIFIED Status: Acute Current Visit: Yes Qualifiers: Anemia type: unspecified type Qualified Code(s): D64.9 - Anemia, unspecified (2) CHF (congestive heart failure) SNOMED Code(s): 42145843 Code(s): I50.9 - HEART FAILURE, UNSPECIFIED Status: Acute Priority: High Current Visit: No Qualifiers: Congestive heart failure chronicity: chronic Annotation/Comment:: On oral diuretics, dieuresing well. CXR improved. Had long discussion regarding fluid restriction, monitoring weights and adding in diuretics if weight increases. (3) COPD (chronic obstructive pulmonary disease) SNOMED Code(s): 97376247 Code(s): J44.9 - CHRONIC OBSTRUCTIVE PULMONARY DISEASE, UNSPECIFIED Status : Acute Current Visit: No Qualifiers: COPD type: unspecified COPD Qualified Code(s): J44.9 - Chronic obstructive pulmonary disease, unspecified (4) Hypoglycemia SNOMED Code(s): 624786860 Code(s): E16.2 - HYPOGLYCEMIA, UNSPECIFIED Status: Acute Current Visit: Yes (5) Rib pain on right side SNOMED Code(s): 210142743 Code(s): R07.81 - PLEURODYNIA Status: Acute Current Visit: Yes (6) Palliative care status SNOMED Code(s): 323587261 Code(s): Z51.5 - ENCOUNTER FOR PALLIATIVE CARE Status: Acute Current Visit: Yes - Problem List Review Problem List Initiated/Reviewed/Updated: Yes - My Orders Last 24 Hours: My Active Orders 09/11/16 09:00 Sodium Chloride 0.9% [Saline Flush] 10 ml FLUSH ASDIRECTED 09/11/16 19:29 Bisacodyl [Dulcolax] 10 mg RECTAL DAILY PRN 09/11/16 20:00 Magnesium Hydroxide [Milk of Magnesia] 30 ml PO DAILY PRN - Plan Plan:: 1. continue current care. 2. Awaiting halfway placement.
[2016-09-12] MEDS: Bisacodyl 10 MG Supp RECTAL PRN (08:40)
[2016-09-12] MEDS: traMADol 50 MG Tab PO SCH ×3 (08:42→20:13)
[2016-09-12] MEDS: metFORMIN 500 MG Tab.ER PO SCH ×2 (08:43→18:48)
[2016-09-12] MEDS: Fish Oil/Omega-3 Fatty Acids 1 Gm Cap PO SCH (08:44)
[2016-09-12] MEDS: Furosemide 80 MG Tab PO SCH ×2 (08:44→14:08)
[2016-09-12] MEDS: Iron Polysaccharides Complex 150 MG Cap PO SCH ×3 (08:44→20:10)
[2016-09-12] MEDS: Lisinopril 2.5 MG Tab PO SCH (08:45)
[2016-09-12] MEDS: Acetaminophen 500 MG Tab PO SCH ×3 (08:45→20:11)
[2016-09-12] MEDS: atorvaSTATin 40 MG Tab PO SCH (18:49)
[2016-09-12] MEDS: Magnesium Hydroxide 400 MG/5 ML Susp 30 ML Cup PO PRN (19:44)
[2016-09-12] MEDS: LORazepam 0.5 MG Tab PO PRN (20:10)
[2016-09-12] MEDS: Enoxaparin 40 MG/0.4 ML Syringe SUBCUT SCH (20:11)
[2016-09-13] MEDS: Pantoprazole 40 MG Tab.CR PO SCH (06:51)
[2016-09-13] MEDS: metFORMIN 500 MG Tab.ER PO SCH ×2 (07:34→18:03)
[2016-09-13] MEDS: Furosemide 80 MG Tab PO SCH ×2 (07:34→13:33)
[2016-09-13] MEDS: traMADol 50 MG Tab PO SCH ×3 (08:37→20:03)
[2016-09-13] MEDS: Fish Oil/Omega-3 Fatty Acids 1 Gm Cap PO SCH (08:38)
[2016-09-13] MEDS: LORazepam 0.5 MG Tab PO PRN (08:38)
[2016-09-13] MEDS: Iron Polysaccharides Complex 150 MG Cap PO SCH ×3 (08:38→20:04)
[2016-09-13] MEDS: Lisinopril 2.5 MG Tab PO SCH (08:39)
[2016-09-13] MEDS: Acetaminophen 500 MG Tab PO SCH ×3 (08:39→20:04)
[2016-09-13] MEDS: Albuterol/Ipratropium 3.0-0.5 MG/3 ML Neb Soln NEB PRN ×2 (08:45→15:45)
--- NOTE | 2016-09-13 09:28 | PCM.PN ---
- General Info Date of Service: 09/13/16 Admission Dx/Problem (Free Text): Patient is breathing about the same. She was short of breath and that's how she is breathing at home. She complains of constipation. She was able to move her bowels yesterday with a suppository she feels like she is straining and would like to have some MiraLax. She has no abdominal pain, chest pain, fevers , chills. - Patient Data Vitals - most recent: Last Vital Signs Temp 97.6 F 09/13/16 00:00 Pulse 97 09/13/16 00:00 Resp 22 H 09/13/16 00:00 BP 104/58 L 09/13/16 08:39 Pulse Ox 87 L 09/13/16 00:00 Weight - most recent: 234 lb 6 oz I&O - last 24 hours: Intake & Output 09/12/16 09/13/16 09/13/16 22:59 06:59 14:59 Intake Total 90 Output Total 200 450 Balance -200 -450 90 Lab Results last 24 hrs: Laboratory Results - last 24 hr 09/12/16 09/12/16 09/12/16 Range/Units 11:37 17:33 18:05 POC Glucose 138 H 124 H (80-116) mg/dL Urine Color Yellow (YELLOW) Urine Appearance Clear (CLEAR) Urine pH 8.0 H (5.0-6.5) Ur Specific [place] 1.015 (1.010-1.025) Urine Protein Negative (NEGATIVE) mg/dL Urine Glucose (UA) Normal (NEGATIVE) mg/dL Urine Ketones Negative (NEGATIVE) mg/dL Urine Occult Blood Negative (NEGATIVE) Urine Nitrite Negative (NEGATIVE) Urine Bilirubin Negative (NEGATIVE) Urine Urobilinogen Normal (NEGATIVE) mg/dL Ur Leukocyte Esterase Negative (NEGATIVE) Urine RBC 0-5 (0) Urine WBC 0-5 (0) Ur Squamous Epith Cells Few H (NS,R,O) Urine Bacteria Occasional H (NS) 09/13/16 Range/Units 06:40 POC Glucose 118 H (80-116) mg/dL Urine Color (YELLOW) Urine Appearance (CLEAR) Urine pH (5.0-6.5) Ur Specific [place] (1.010-1.025) Urine Protein (NEGATIVE) mg/dL Urine Glucose (UA) (NEGATIVE) mg/dL Urine Ketones (NEGATIVE) mg/dL Urine Occult Blood (NEGATIVE) Urine Nitrite (NEGATIVE) Urine Bilirubin (NEGATIVE) Urine Urobilinogen (NEGATIVE) mg/dL Ur Leukocyte Esterase (NEGATIVE) Urine RBC (0) Urine WBC (0) Ur Squamous Epith Cells (NS,R,O) Urine Bacteria (NS) Med Orders - Current: Current Medications Acetaminophen (Tylenol Extra Strength) 1,000 mg PO TID [facility] Last Admin: 09/13/16 08:39 Dose: 1,000 mg Acetaminophen (Tylenol) 650 mg PO Q4H PRN PRN Reason: Pain (mild 1-3) Last Admin: 09/12/16 05:39 Dose: 650 mg Albuterol (Ventolin Hfa) 0 gm INH Q4H PRN PRN Reason: Shortness of Breath Albuterol/Ipratropium (Duoneb 3.0-0.5 Mg/3 Ml) 3 ml NEB Q6H PRN PRN Reason: Shortness of Breath Last Admin: 09/13/16 08:45 Dose: 3 ml Atorvastatin Calcium (Lipitor) 40 mg PO WITHDINNER [facility] Last Admin: 09/12/16 18:49 Dose: 40 mg Bisacodyl (Dulcolax) 10 mg RECTAL DAILY PRN PRN Reason: Constipation Last Admin: 09/12/16 08:40 Dose: 10 mg Enoxaparin Sodium (Lovenox) 40 mg SUBCUT DAILY@2100 [facility] Last Admin: 09/12/16 20:11 Dose: 40 mg Fish Oil (Fish Oil) 1 gm PO DAILY [facility] Last Admin: 09/13/16 08:38 Dose: 1 gm Furosemide (Lasix) 80 mg PO BID@08,14 [facility] Last Admin: 09/13/16 07:34 Dose: 80 mg Heparin Sodium (Porcine) (Heparin Lock Flush 10 Units/Ml) 50 unit FLUSH ASDIRECTED PRN PRN Reason: port-a cath flush Last Admin: 09/11/16 08:48 Dose: 50 unit Dextrose/Water (Dextrose 10% In Water) 1,000 mls @ 70 mls/hr IV ASDIRECTED [facility] Last Admin: 09/09/16 02:59 Dose: 70 mls/hr Lisinopril (Prinivil) 2.5 mg PO DAILY [facility] Last Admin: 09/13/16 08:39 Dose: Not Given Lorazepam (Ativan) 0.5 mg PO Q8H PRN PRN Reason: Anxiety Last Admin: 09/13/16 08:38 Dose: 0.5 mg Magnesium Hydroxide (Milk Of Magnesia) 30 ml PO DAILY PRN PRN Reason: Constipation Last Admin: 09/12/16 19:44 Dose: 30 ml Metformin HCl (Glucophage Xr) 1,000 mg PO BIDMEALS [facility] Last Admin: 09/13/16 07:34 Dose: 1,000 mg Ondansetron HCl (Zofran Odt) 4 mg PO Q4H PRN PRN Reason: Nausea/Vomiting Last Admin: 09/11/16 12:55 Dose: 4 mg Pantoprazole Sodium (Protonix) 40 mg PO 0600 [facility] Last Admin: 09/13/16 06:51 Dose: 40 mg Polyethylene Glycol (Miralax) 17 gm PO DAILY [facility] Polysaccharide Iron Complex (Ferrex 150) 150 mg PO TID [facility] Last Admin: 09/13/16 08:38 Dose: 150 mg Sodium Chloride (Saline Flush) 10 ml FLUSH ASDIRECTED [facility] Last Admin: 09/11/16 08:48 Dose: 10 ml Tramadol HCl (Ultram) 100 mg PO TID [facility] Last Admin: 09/13/16 08:37 Dose: 100 mg Discontinued Medications Acetaminophen (Tylenol Extra Strength) 1,000 mg PO TID PRN PRN Reason: Pain Last Admin: 09/08/16 16:16 Dose: 1,000 mg Acetaminophen (Tylenol Extra Strength) 1,000 mg PO ONETIME ONE Stop: 09/05/16 10:16 Last Admin: 09/05/16 10:07 Dose: 1,000 mg Bupivacaine HCl (Marcaine 0.5%) 10 ml .XX .STK-MED ONE Stop: 09/04/16 10:56 Last Admin: 09/04/16 10:55 Dose: 10 ml Cefazolin Sodium (Ancef) 1 gm IV .STK-MED ONE Stop: 09/04/16 11:01 Dextrose/Water (Dextrose 50% In Water) 25 ml IVPUSH ONETIME ONE Stop: 09/07/16 14:08 Last Admin: 09/07/16 14:10 Dose: 25 ml Dextrose/Water (Dextrose 50% In Water) 50 ml IVPUSH ONETIME ONE Stop: 09/07/16 16:42 Last Admin: 09/07/16 16:45 Dose: 50 ml Enoxaparin Sodium (Lovenox) 40 mg SUBCUT DAILY [facility] Last Admin: 09/03/16 21:47 Dose: 40 mg Furosemide (Lasix) 40 mg PO ONETIME ONE Stop: 09/04/16 05:43 Last Admin: 09/04/16 05:53 Dose: 40 mg Furosemide (Lasix) Confirm Administered Dose 40 mg .ROUTE .STK-MED ONE Stop: 09/04/16 05:49 Last Admin: 09/04/16 05:52 Dose: Not Given Furosemide (Lasix) 20 mg IVPUSH ASDIRECTED ONE Stop: 09/04/16 12:36 Last Admin: 09/04/16 17:38 Dose: Not Given Furosemide (Lasix) 20 mg IVPUSH ASDIRECTED ONE Stop: 09/04/16 17:46 Last Admin: 09/04/16 17:37 Dose: 20 mg Furosemide (Lasix) 20 mg IVPUSH DAILY [facility] Last Admin: 09/06/16 08:40 Dose: 20 mg Furosemide (Lasix) 20 mg IVPUSH ONETIME ONE Stop: 09/05/16 13:46 Last Admin: 09/05/16 13:59 Dose: 20 mg Furosemide (Lasix) 40 mg PO ONETIME ONE Stop: 09/07/16 08:28 Last Admin: 09/07/16 08:34 Dose: 40 mg Furosemide (Lasix) 20 mg IVPUSH ONETIME ONE Stop: 09/07/16 13:01 Last Admin: 09/07/16 18:29 Dose: 20 mg Furosemide (Lasix) 60 mg IVPUSH NOW ONE Stop: 09/09/16 09:19 Last Admin: 09/09/16 09:29 Dose: 60 mg Gabapentin (Neurontin) 600 mg PO BID@0800,1400 [facility] Last Admin: 09/04/16 15:13 Dose: Not Given Gabapentin (Neurontin) 900 mg PO BEDTIME [facility] Last Admin: 09/04/16 22:20 Dose: 900 mg Glimepiride (Glimepiride) 4 mg PO BRK [facility] Last Admin: 09/06/16 09:00 Dose: Not Given Glimepiride (Amaryl) 4 mg PO BIDMEALS [facility] Last Admin: 09/05/16 17:54 Dose: 4 mg Glimepiride (Amaryl) Confirm Administered Dose 2 mg .ROUTE .[facility]-MED ONE Stop: 09/05/16 17:58 Last Admin: 09/05/16 19:22 Dose: Not Given Glimepiride (Glimepiride) 4 mg PO BIDMEALS [facility] Last Admin: 09/07/16 08:19 Dose: 4 mg Heparin Sodium (Porcine) (Heparin Lock Flush 100 Units/Ml Syringe) 10 units .XX .[facility] ONE Stop: 09/04/16 10:54 Last Admin: 09/04/16 10:53 Dose: 10 units Hydrocodone Bitartrate/Ibuprofen (Vicoprofen) 1 tab PO Q4H PRN PRN Reason: Pain Last Admin: 09/09/16 08:02 Dose: 1 tab Sodium Chloride (Normal Saline) 1,000 mls @ 50 mls/hr IV ASDIRECTED [facility] Last Admin: 09/03/16 19:16 Dose: 50 mls/hr Sodium Chloride (Normal Saline) 250 mls @ 100 mls/hr IV ASDIRECTED [facility] Last Admin: 09/04/16 14:30 Dose: 100 mls/hr Sodium Chloride (Normal Saline) 250 mls @ 100 mls/hr IV ASDIRECTED [facility] Sodium Chloride (Normal Saline) 250 mls @ 100 mls/hr IV ASDIRECTED [facility] Sodium Chloride (Normal Saline) 250 mls @ 100 mls/hr IV ASDIRECTED [facility] Sodium Chloride (Normal Saline) 250 mls @ 100 mls/hr IV ASDIRECTED [facility] Last Admin: 09/07/16 18:40 Dose: 100 mls/hr Ketamine HCl (Ketalar) 45 mg IV .K-MED ONE Stop: 09/04/16 11:01 Lidocaine HCl (Xylocaine 1%) 10 ml .XX .K-[facility] ONE Stop: 09/04/16 10:55 Last Admin: 09/04/16 10:54 Dose: 10 ml Lisinopril (Prinivil) 2.5 mg PO DAILY [facility] Last Admin: 09/06/16 09:00 Dose: Not Given Metformin HCl (Glucophage) 1,000 mg PO BIDM [facility] Last Admin: 09/05/16 07:58 Dose: 1,000 mg Metformin HCl (Glucophage) Confirm Administered Dose 500 mg .ROUTE .K-MED ONE Stop: 09/05/16 17:48 Last Admin: 09/05/16 19:22 Dose: Not Given Metformin HCl (Glucophage Xr) Confirm Administered Dose 500 mg .ROUTE .STK-MED ONE Stop: 09/05/16 17:53 Last Admin: 09/05/16 19:21 Dose: Not Given Metolazone (Zaroxolyn) 2.5 mg PO MOWEFR [facility] Last Admin: 09/04/16 01:22 Dose: Not Given Metolazone (Zaroxolyn) 2.5 mg PO MOWEFR [facility] Last Admin: 09/03/16 21:51 Dose: 2.5 mg Metolazone (Zaroxolyn) 2.5 mg PO MoWeFr@0600 [facility] Metolazone (Zaroxolyn) 5 mg PO ONETIME ONE Stop: 09/09/16 07:31 Last Admin: 09/09/16 08:02 Dose: 5 mg Metoprolol Succinate (Toprol Xl) 12.5 mg PO DAILY [facility] Last Admin: 09/04/16 15:14 Dose: Not Given Midazolam HCl (Versed 1 Mg/Ml) 2 mg IV .STK-MED ONE Stop: 09/04/16 11:01 Mometasone Furoate (Asmanex Hfa) 0 gm INH BID [facility] Last Admin: 09/06/16 09:00 Dose: Not Given Nitrofurantoin Macrocrystals (Macrobid) 100 mg PO BID [facility] Last Admin: 09/04/16 15:14 Dose: Not Given Non-Formulary Medication (Fluticasone Propionate [Flovent Hfa 220 Mcg]) 2 puff INH BID [facility] Last Admin: 09/04/16 00:15 Dose: Not Given Pantoprazole Sodium (Protonix) 40 mg PO DAILY [facility] Last Admin: 09/04/16 15:14 Dose: Not Given Polyethylene Glycol (Miralax) 17 gm PO DAILY PRN PRN Reason: Constipation Prednisone (Prednisone) 20 mg PO BIDMEALS [facility] Prednisone (Prednisone) 20 mg PO DAILY [facility] Propofol (Diprivan 20 Ml) 150 mg IV .STK-MED ONE Stop: 09/04/16 11:01 Sodium Chloride (Saline Flush) 10 ml FLUSH ASDIRECTED PRN PRN Reason: Keep Vein Open Last Admin: 09/07/16 21:28 Dose: 10 ml Tramadol HCl (Ultram) 100 mg PO BID [facility] Last Admin: 09/04/16 15:15 Dose: Not Given Tramadol HCl (Ultram) 100 mg PO Q6H PRN PRN Reason: Pain Last Admin: 09/05/16 05:06 Dose: 100 mg Tramadol HCl (Ultram) 100 mg PO Q6H PRN PRN Reason: Pain Last Admin: 09/09/16 09:36 Dose: 100 mg - Exam General: alert, oriented, cooperative Neck: supple Lungs: Clear to auscultation, Normal respiratory effort Cardiovascular: regular rate, regular rhythm, no murmurs Abdomen: bowel sounds present, soft, no tenderness - Problem List & Annotations (1) Anemia SNOMED Code(s): 751310180 Code(s): D64.9 - ANEMIA, UNSPECIFIED Status: Acute Current Visit: Yes Qualifiers: Anemia type: unspecified type Qualified Code(s): D64.9 - Anemia, unspecified (2) CHF (congestive heart failure) SNOMED Code(s): 68515540 Code(s): I50.9 - HEART FAILURE, UNSPECIFIED Status: Acute Priority: High Current Visit: No Qualifiers: Congestive heart failure chronicity: chronic Annotation/Comment:: On oral diuretics, dieuresing well. CXR improved. Had long discussion regarding fluid restriction, monitoring weights and adding in diuretics if weight increases. (3) COPD (chronic obstructive pulmonary disease) SNOMED Code(s): 80437117 Code(s): J44.9 - CHRONIC OBSTRUCTIVE PULMONARY DISEASE, UNSPECIFIED Status : Acute Current Visit: No Qualifiers: COPD type: unspecified COPD Qualified Code(s): J44.9 - Chronic obstructive pulmonary disease, unspecified (4) Hypoglycemia SNOMED Code(s): 400307096 Code(s): E16.2 - HYPOGLYCEMIA, UNSPECIFIED Status: Acute Current Visit: Yes (5) Rib pain on right side SNOMED Code(s): 934872525 Code(s): R07.81 - PLEURODYNIA Status: Acute Current Visit: Yes (6) Palliative care status SNOMED Code(s): 986576442 Code(s): Z51.5 - ENCOUNTER FOR PALLIATIVE CARE Status: Acute Current Visit: Yes (7) Constipation SNOMED Code(s): 87608435 Code(s): K59.00 - CONSTIPATION, UNSPECIFIED Status: Acute Current Visit: Yes - Problem List Review Problem List Initiated/Reviewed/Updated: Yes - My Orders Last 24 Hours: My Active Orders 09/13/16 09:30 Polyethylene Glycol 3350 [MiraLAX] 17 gm PO DAILY - Plan Plan:: 1. start MiraLax today. 2. Awaiting half-way placement.
[2016-09-13] MEDS: Polyethylene Glycol 3350 Powder 17 GM Packet PO SCH (11:26)
[2016-09-13] MEDS: Ondansetron 4 MG Tab.DIS PO PRN ×2 (14:46→18:04)
--- NOTE | 2016-09-13 16:12 | CR ---
INDICATION: Intraoperative guidance for placement of Port-A-Cath. O.R. FLUOROSCOPY WITH C-ARM: 0.7 minutes C-arm fluoroscopy time was utilized in O.R. for guidance in placement of an infusaport. RICARDO
[2016-09-13] MEDS: atorvaSTATin 40 MG Tab PO SCH (18:04)
[2016-09-13] MEDS: Enoxaparin 40 MG/0.4 ML Syringe SUBCUT SCH (20:03)
[2016-09-14] MEDS: Acetaminophen 325 MG Tab PO PRN ×2 (01:04→06:55)
[2016-09-14] MEDS: Pantoprazole 40 MG Tab.CR PO SCH (06:16)
[2016-09-14] MEDS: metFORMIN 500 MG Tab.ER PO SCH ×2 (08:25→17:22)
[2016-09-14] MEDS ORDERED: Bisacodyl 10 MG Supp RECTAL ONE (08:25)
[2016-09-14] MEDS: Fish Oil/Omega-3 Fatty Acids 1 Gm Cap PO SCH (08:26)
[2016-09-14] MEDS: Iron Polysaccharides Complex 150 MG Cap PO SCH ×3 (08:26→22:08)
[2016-09-14] MEDS: Furosemide 80 MG Tab PO SCH ×2 (08:26→14:19)
[2016-09-14] MEDS: Bisacodyl 10 MG Supp RECTAL PRN ×2 (08:27→09:36)
[2016-09-14] MEDS: Polyethylene Glycol 3350 Powder 17 GM Packet PO SCH (08:27)
[2016-09-14] MEDS: Lisinopril 2.5 MG Tab PO SCH (08:27)
[2016-09-14] MEDS: traMADol 50 MG Tab PO SCH ×3 (08:28→22:08)
[2016-09-14] MEDS: Acetaminophen 500 MG Tab PO SCH ×3 (08:28→22:08)
[2016-09-14] MEDS: LORazepam 0.5 MG Tab PO PRN (08:28)
--- NOTE | 2016-09-14 08:33 | PCM.PN ---
- General Info Date of Service: 09/14/16 Admission Dx/Problem (Free Text): Patient states her breathing is better. No chest pain. She complains of constipation. She has not moved her bowels. She is on MiraLax currently. No dominant pain. - Patient Data Vitals - most recent: Last Vital Signs Temp 97.9 F 09/14/16 07:30 Pulse 74 09/14/16 07:30 Resp 20 09/14/16 07:30 BP 110/60 09/14/16 08:27 Pulse Ox 97 09/14/16 07:30 Weight - most recent: 234 lb 6 oz I&O - last 24 hours: Intake & Output 09/13/16 09/14/16 09/14/16 22:59 06:59 14:59 Intake Total 300 Output Total 680 100 Balance -380 -100 Lab Results last 24 hrs: Laboratory Results - last 24 hr 09/13/16 09/13/16 09/14/16 Range/Units 11:29 18:43 06:19 POC Glucose 149 H 179 H 130 H (80-116) mg/dL Med Orders - Current: Current Medications Acetaminophen (Tylenol Extra Strength) 1,000 mg PO TID [facility] Last Admin: 09/14/16 08:28 Dose: 1,000 mg Acetaminophen (Tylenol) 650 mg PO Q4H PRN PRN Reason: Pain (mild 1-3) Last Admin: 09/14/16 06:55 Dose: 650 mg Albuterol (Ventolin Hfa) 0 gm INH Q4H PRN PRN Reason: Shortness of Breath Albuterol/Ipratropium (Duoneb 3.0-0.5 Mg/3 Ml) 3 ml NEB Q6H PRN PRN Reason: Shortness of Breath Last Admin: 09/13/16 15:45 Dose: 3 ml Atorvastatin Calcium (Lipitor) 40 mg PO WITHDINNER [facility] Last Admin: 09/13/16 18:04 Dose: 40 mg Bisacodyl (Dulcolax) 10 mg RECTAL DAILY PRN PRN Reason: Constipation Last Admin: 09/14/16 08:27 Dose: 10 mg Enoxaparin Sodium (Lovenox) 40 mg SUBCUT DAILY@2100 [facility] Last Admin: 09/13/16 20:03 Dose: 40 mg Fish Oil (Fish Oil) 1 gm PO DAILY [facility] Last Admin: 09/14/16 08:26 Dose: 1 gm Furosemide (Lasix) 80 mg PO BID@08,14 [facility] Last Admin: 09/14/16 08:26 Dose: 80 mg Heparin Sodium (Porcine) (Heparin Lock Flush 10 Units/Ml) 50 unit FLUSH ASDIRECTED PRN PRN Reason: port-a cath flush Last Admin: 09/11/16 08:48 Dose: 50 unit Dextrose/Water (Dextrose 10% In Water) 1,000 mls @ 70 mls/hr IV ASDIRECTED [facility] Last Admin: 09/09/16 02:59 Dose: 70 mls/hr Lisinopril (Prinivil) 2.5 mg PO DAILY [facility] Last Admin: 09/14/16 08:27 Dose: 2.5 mg Lorazepam (Ativan) 0.5 mg PO Q8H PRN PRN Reason: Anxiety Last Admin: 09/14/16 08:28 Dose: 0.5 mg Magnesium Hydroxide (Milk Of Magnesia) 30 ml PO DAILY PRN PRN Reason: Constipation Last Admin: 09/12/16 19:44 Dose: 30 ml Metformin HCl (Glucophage Xr) 1,000 mg PO BIDMEALS [facility] Last Admin: 09/14/16 08:25 Dose: 1,000 mg Ondansetron HCl (Zofran Odt) 4 mg PO Q4H PRN PRN Reason: Nausea/Vomiting Last Admin: 09/13/16 18:04 Dose: 4 mg Pantoprazole Sodium (Protonix) 40 mg PO 0600 [facility] Last Admin: 09/14/16 06:16 Dose: 40 mg Polyethylene Glycol (Miralax) 17 gm PO DAILY [facility] Last Admin: 09/14/16 08:27 Dose: 17 gm Polysaccharide Iron Complex (Ferrex 150) 150 mg PO TID [facility] Last Admin: 09/14/16 08:26 Dose: 150 mg Sodium Chloride (Saline Flush) 10 ml FLUSH ASDIRECTED [facility] Last Admin: 09/11/16 08:48 Dose: 10 ml Tramadol HCl (Ultram) 100 mg PO TID [facility] Last Admin: 09/14/16 08:28 Dose: 100 mg Discontinued Medications Acetaminophen (Tylenol Extra Strength) 1,000 mg PO TID PRN PRN Reason: Pain Last Admin: 09/08/16 16:16 Dose: 1,000 mg Acetaminophen (Tylenol Extra Strength) 1,000 mg PO ONETIME ONE Stop: 09/05/16 10:16 Last Admin: 09/05/16 10:07 Dose: 1,000 mg Bisacodyl (Dulcolax) 10 mg RECTAL BID ONE Stop: 09/14/16 08:26 Bupivacaine HCl (Marcaine 0.5%) 10 ml .XX .[facility] ONE Stop: 09/04/16 10:56 Last Admin: 09/04/16 10:55 Dose: 10 ml Cefazolin Sodium (Ancef) 1 gm IV .[facility] ONE Stop: 09/04/16 11:01 Dextrose/Water (Dextrose 50% In Water) 25 ml IVPUSH ONETIME ONE Stop: 09/07/16 14:08 Last Admin: 09/07/16 14:10 Dose: 25 ml Dextrose/Water (Dextrose 50% In Water) 50 ml IVPUSH ONETIME ONE Stop: 09/07/16 16:42 Last Admin: 09/07/16 16:45 Dose: 50 ml Enoxaparin Sodium (Lovenox) 40 mg SUBCUT DAILY [facility] Last Admin: 09/03/16 21:47 Dose: 40 mg Furosemide (Lasix) 40 mg PO ONETIME ONE Stop: 09/04/16 05:43 Last Admin: 09/04/16 05:53 Dose: 40 mg Furosemide (Lasix) Confirm Administered Dose 40 mg .ROUTE .K-[facility] ONE Stop: 09/04/16 05:49 Last Admin: 09/04/16 05:52 Dose: Not Given Furosemide (Lasix) 20 mg IVPUSH ASDIRECTED ONE Stop: 09/04/16 12:36 Last Admin: 09/04/16 17:38 Dose: Not Given Furosemide (Lasix) 20 mg IVPUSH ASDIRECTED ONE Stop: 09/04/16 17:46 Last Admin: 09/04/16 17:37 Dose: 20 mg Furosemide (Lasix) 20 mg IVPUSH DAILY [facility] Last Admin: 09/06/16 08:40 Dose: 20 mg Furosemide (Lasix) 20 mg IVPUSH ONETIME ONE Stop: 09/05/16 13:46 Last Admin: 09/05/16 13:59 Dose: 20 mg Furosemide (Lasix) 40 mg PO ONETIME ONE Stop: 09/07/16 08:28 Last Admin: 09/07/16 08:34 Dose: 40 mg Furosemide (Lasix) 20 mg IVPUSH ONETIME ONE Stop: 09/07/16 13:01 Last Admin: 09/07/16 18:29 Dose: 20 mg Furosemide (Lasix) 60 mg IVPUSH NOW ONE Stop: 09/09/16 09:19 Last Admin: 09/09/16 09:29 Dose: 60 mg Gabapentin (Neurontin) 600 mg PO BID@0800,1400 [facility] Last Admin: 09/04/16 15:13 Dose: Not Given Gabapentin (Neurontin) 900 mg PO BEDTIME [facility] Last Admin: 09/04/16 22:20 Dose: 900 mg Glimepiride (Glimepiride) 4 mg PO BRK [facility] Last Admin: 09/06/16 09:00 Dose: Not Given Glimepiride (Amaryl) 4 mg PO BIDMEALS [facility] Last Admin: 09/05/16 17:54 Dose: 4 mg Glimepiride (Amaryl) Confirm Administered Dose 2 mg .ROUTE .STK-MED ONE Stop: 09/05/16 17:58 Last Admin: 09/05/16 19:22 Dose: Not Given Glimepiride (Glimepiride) 4 mg PO BIDMEALS [facility] Last Admin: 09/07/16 08:19 Dose: 4 mg Heparin Sodium (Porcine) (Heparin Lock Flush 100 Units/Ml Syringe) 10 units .XX .STK-MED ONE Stop: 09/04/16 10:54 Last Admin: 09/04/16 10:53 Dose: 10 units Hydrocodone Bitartrate/Ibuprofen (Vicoprofen) 1 tab PO Q4H PRN PRN Reason: Pain Last Admin: 09/09/16 08:02 Dose: 1 tab Sodium Chloride (Normal Saline) 1,000 mls @ 50 mls/hr IV ASDIRECTED [facility] Last Admin: 09/03/16 19:16 Dose: 50 mls/hr Sodium Chloride (Normal Saline) 250 mls @ 100 mls/hr IV ASDIRECTED [facility] Last Admin: 09/04/16 14:30 Dose: 100 mls/hr Sodium Chloride (Normal Saline) 250 mls @ 100 mls/hr IV ASDIRECTED [facility] Sodium Chloride (Normal Saline) 250 mls @ 100 mls/hr IV ASDIRECTED [facility] Sodium Chloride (Normal Saline) 250 mls @ 100 mls/hr IV ASDIRECTED [facility] Sodium Chloride (Normal Saline) 250 mls @ 100 mls/hr IV ASDIRECTED [facility] Last Admin: 09/07/16 18:40 Dose: 100 mls/hr Ketamine HCl (Ketalar) 45 mg IV .STK-MED ONE Stop: 09/04/16 11:01 Lidocaine HCl (Xylocaine 1%) 10 ml .XX .STK-MED ONE Stop: 09/04/16 10:55 Last Admin: 09/04/16 10:54 Dose: 10 ml Lisinopril (Prinivil) 2.5 mg PO DAILY [facility] Last Admin: 09/06/16 09:00 Dose: Not Given Metformin HCl (Glucophage) 1,000 mg PO BIDM [facility] Last Admin: 09/05/16 07:58 Dose: 1,000 mg Metformin HCl (Glucophage) Confirm Administered Dose 500 mg .ROUTE .STK-MED ONE Stop: 09/05/16 17:48 Last Admin: 09/05/16 19:22 Dose: Not Given Metformin HCl (Glucophage Xr) Confirm Administered Dose 500 mg .ROUTE .STK-MED ONE Stop: 09/05/16 17:53 Last Admin: 09/05/16 19:21 Dose: Not Given Metolazone (Zaroxolyn) 2.5 mg PO MOWEFR [facility] Last Admin: 09/04/16 01:22 Dose: Not Given Metolazone (Zaroxolyn) 2.5 mg PO MOWEFR [facility] Last Admin: 09/03/16 21:51 Dose: 2.5 mg Metolazone (Zaroxolyn) 2.5 mg PO MoWeFr@0600 [facility] Metolazone (Zaroxolyn) 5 mg PO ONETIME ONE Stop: 09/09/16 07:31 Last Admin: 09/09/16 08:02 Dose: 5 mg Metoprolol Succinate (Toprol Xl) 12.5 mg PO DAILY [facility] Last Admin: 09/04/16 15:14 Dose: Not Given Midazolam HCl (Versed 1 Mg/Ml) 2 mg IV .STK-MED ONE Stop: 09/04/16 11:01 Mometasone Furoate (Asmanex Hfa) 0 gm INH BID [facility] Last Admin: 09/06/16 09:00 Dose: Not Given Nitrofurantoin Macrocrystals (Macrobid) 100 mg PO BID [facility] Last Admin: 09/04/16 15:14 Dose: Not Given Non-Formulary Medication (Fluticasone Propionate [Flovent Hfa 220 Mcg]) 2 puff INH BID [facility] Last Admin: 09/04/16 00:15 Dose: Not Given Pantoprazole Sodium (Protonix) 40 mg PO DAILY [facility] Last Admin: 09/04/16 15:14 Dose: Not Given Polyethylene Glycol (Miralax) 17 gm PO DAILY PRN PRN Reason: Constipation Prednisone (Prednisone) 20 mg PO BIDMEALS [facility] Prednisone (Prednisone) 20 mg PO DAILY [facility] Propofol (Diprivan 20 Ml) 150 mg IV .STK-MED ONE Stop: 09/04/16 11:01 Sodium Chloride (Saline Flush) 10 ml FLUSH ASDIRECTED PRN PRN Reason: Keep Vein Open Last Admin: 09/07/16 21:28 Dose: 10 ml Tramadol HCl (Ultram) 100 mg PO BID [facility] Last Admin: 09/04/16 15:15 Dose: Not Given Tramadol HCl (Ultram) 100 mg PO Q6H PRN PRN Reason: Pain Last Admin: 09/05/16 05:06 Dose: 100 mg Tramadol HCl (Ultram) 100 mg PO Q6H PRN PRN Reason: Pain Last Admin: 09/09/16 09:36 Dose: 100 mg - Exam Quality Assessment: supplemental oxygen General: alert, oriented, cooperative Neck: supple Lungs: Clear to auscultation, Normal respiratory effort Cardiovascular: regular rate, regular rhythm, no murmurs - Problem List & Annotations (1) Anemia SNOMED Code(s): 051389313 Code(s): D64.9 - ANEMIA, UNSPECIFIED Status: Acute Current Visit: Yes Qualifiers: Anemia type: unspecified type Qualified Code(s): D64.9 - Anemia, unspecified (2) CHF (congestive heart failure) SNOMED Code(s): 35616753 Code(s): I50.9 - HEART FAILURE, UNSPECIFIED Status: Acute Priority: High Current Visit: No Qualifiers: Congestive heart failure chronicity: chronic Annotation/Comment:: On oral diuretics, dieuresing well. CXR improved. Had long discussion regarding fluid restriction, monitoring weights and adding in diuretics if weight increases. (3) COPD (chronic obstructive pulmonary disease) SNOMED Code(s): 87380966 Code(s): J44.9 - CHRONIC OBSTRUCTIVE PULMONARY DISEASE, UNSPECIFIED Status : Acute Current Visit: No Qualifiers: COPD type: unspecified COPD Qualified Code(s): J44.9 - Chronic obstructive pulmonary disease, unspecified (4) Hypoglycemia SNOMED Code(s): 195091087 Code(s): E16.2 - HYPOGLYCEMIA, UNSPECIFIED Status: Acute Current Visit: Yes (5) Rib pain on right side SNOMED Code(s): 942349262 Code(s): R07.81 - PLEURODYNIA Status: Acute Current Visit: Yes (6) Palliative care status SNOMED Code(s): 661140947 Code(s): Z51.5 - ENCOUNTER FOR PALLIATIVE CARE Status: Acute Current Visit: Yes (7) Constipation SNOMED Code(s): 98701504 Code(s): K59.00 - CONSTIPATION, UNSPECIFIED Status: Acute Current Visit: Yes - Problem List Review Problem List Initiated/Reviewed/Updated: Yes - My Orders Last 24 Hours: My Active Orders 09/13/16 09:30 Polyethylene Glycol 3350 [MiraLAX] 17 gm PO DAILY - Plan Plan:: 1. ADRIAN suppository repeat in 2 hours. 2. If that doesn't work try fleets enemas or even a soap suds enema. 3. Awaiting shelter placement.
[2016-09-14] MEDS ORDERED: Sodium Phosphate,Monobasic/Sodium Phosphate,Dibasic Enema 133 ML Bottle RECTAL ONE (10:22)
[2016-09-14] MEDS: Albuterol/Ipratropium 3.0-0.5 MG/3 ML Neb Soln NEB PRN (13:48)
[2016-09-14] MEDS: atorvaSTATin 40 MG Tab PO SCH (17:22)
[2016-09-14] MEDS: Ondansetron 4 MG Tab.DIS PO PRN (17:25)
[2016-09-14] MEDS: Enoxaparin 40 MG/0.4 ML Syringe SUBCUT SCH (22:09)
[2016-09-15] MEDS: Acetaminophen 325 MG Tab PO PRN ×2 (00:58→06:32)
[2016-09-15] MEDS: Pantoprazole 40 MG Tab.CR PO SCH (06:32)
[2016-09-15] MEDS: Albuterol/Ipratropium 3.0-0.5 MG/3 ML Neb Soln NEB PRN (07:58)
[2016-09-15] MEDS: Furosemide 80 MG Tab PO SCH ×2 (08:15→14:48)
[2016-09-15] MEDS: metFORMIN 500 MG Tab.ER PO SCH ×2 (08:15→18:10)
[2016-09-15] MEDS: Iron Polysaccharides Complex 150 MG Cap PO SCH ×3 (08:16→21:29)
[2016-09-15] MEDS: Acetaminophen 500 MG Tab PO SCH ×3 (08:16→21:29)
[2016-09-15] MEDS: Polyethylene Glycol 3350 Powder 17 GM Packet PO SCH (08:16)
[2016-09-15] MEDS: Fish Oil/Omega-3 Fatty Acids 1 Gm Cap PO SCH (08:16)
--- NOTE | 2016-09-15 08:19 | PCM.PN ---
- General Info Date of Service: 09/15/16 Admission Dx/Problem (Free Text): Patient without complaints. States she had a very good BM yesterday and feels good. Breathing about the same. - Patient Data Vitals - most recent: Last Vital Signs Temp 98.4 F 09/15/16 00:50 Pulse 78 09/15/16 08:05 Resp 20 09/15/16 00:50 BP 105/57 L 09/15/16 00:50 Pulse Ox 94 L 09/15/16 08:05 Weight - most recent: 234 lb 6 oz I&O - last 24 hours: Intake & Output 09/14/16 09/15/16 09/15/16 22:59 06:59 14:59 Intake Total 700 Output Total 1675 580 Balance -975 -580 Lab Results last 24 hrs: Laboratory Results - last 24 hr 09/14/16 09/14/16 09/15/16 Range/Units 11:28 17:21 06:25 POC Glucose 147 H 106 113 (80-116) mg/dL [facility] Results last 24 hrs: Microbiology 09/14/16 09:00 Stool Occult Blood ([facility]) - Final Stool / Feces Med Orders - Current: Current Medications Acetaminophen (Tylenol Extra Strength) 1,000 mg PO TID [facility] Last Admin: 09/14/16 22:08 Dose: 1,000 mg Acetaminophen (Tylenol) 650 mg PO Q4H PRN PRN Reason: Pain (mild 1-3) Last Admin: 09/15/16 06:32 Dose: 650 mg Albuterol (Ventolin Hfa) 0 gm INH Q4H PRN PRN Reason: Shortness of Breath Albuterol/Ipratropium (Duoneb 3.0-0.5 Mg/3 Ml) 3 ml NEB Q6H PRN PRN Reason: Shortness of Breath Last Admin: 09/15/16 07:58 Dose: 3 ml Atorvastatin Calcium (Lipitor) 40 mg PO WITHDINNER [facility] Last Admin: 09/14/16 17:22 Dose: 40 mg Bisacodyl (Dulcolax) 10 mg RECTAL DAILY PRN PRN Reason: Constipation Last Admin: 09/14/16 09:36 Dose: 10 mg Enoxaparin Sodium (Lovenox) 40 mg SUBCUT DAILY@2100 [facility] Last Admin: 02/28/17 22:09 Dose: 40 mg Fish Oil (Fish Oil) 1 gm PO DAILY [facility] Last Admin: 09/14/16 08:26 Dose: 1 gm Furosemide (Lasix) 80 mg PO BID@08,14 [facility] Last Admin: 09/14/16 14:19 Dose: 80 mg Heparin Sodium (Porcine) (Heparin Lock Flush 10 Units/Ml) 50 unit FLUSH ASDIRECTED PRN PRN Reason: port-a cath flush Last Admin: 09/11/16 08:48 Dose: 50 unit Dextrose/Water (Dextrose 10% In Water) 1,000 mls @ 70 mls/hr IV ASDIRECTED [facility] Last Admin: 09/09/16 02:59 Dose: 70 mls/hr Lisinopril (Prinivil) 2.5 mg PO DAILY [facility] Last Admin: 09/14/16 08:27 Dose: 2.5 mg Lorazepam (Ativan) 0.5 mg PO Q8H PRN PRN Reason: Anxiety Last Admin: 09/14/16 08:28 Dose: 0.5 mg Magnesium Hydroxide (Milk Of Magnesia) 30 ml PO DAILY PRN PRN Reason: Constipation Last Admin: 09/12/16 19:44 Dose: 30 ml Metformin HCl (Glucophage Xr) 1,000 mg PO BIDMEALS [facility] Last Admin: 09/14/16 17:22 Dose: 1,000 mg Ondansetron HCl (Zofran Odt) 4 mg PO Q4H PRN PRN Reason: Nausea/Vomiting Last Admin: 09/14/16 17:25 Dose: 4 mg Pantoprazole Sodium (Protonix) 40 mg PO 0600 [facility] Last Admin: 09/15/16 06:32 Dose: 40 mg Polyethylene Glycol (Miralax) 17 gm PO DAILY [facility] Last Admin: 09/14/16 08:27 Dose: 17 gm Polysaccharide Iron Complex (Ferrex 150) 150 mg PO TID [facility] Last Admin: 09/14/16 22:08 Dose: 150 mg Sodium Chloride (Saline Flush) 10 ml FLUSH ASDIRECTED [facility] Last Admin: 09/11/16 08:48 Dose: 10 ml Tramadol HCl (Ultram) 100 mg PO TID [facility] Last Admin: 09/14/16 22:08 Dose: 100 mg Discontinued Medications Acetaminophen (Tylenol Extra Strength) 1,000 mg PO TID PRN PRN Reason: Pain Last Admin: 09/08/16 16:16 Dose: 1,000 mg Acetaminophen (Tylenol Extra Strength) 1,000 mg PO ONETIME ONE Stop: 09/05/16 10:16 Last Admin: 09/05/16 10:07 Dose: 1,000 mg Bisacodyl (Dulcolax) 10 mg RECTAL BID ONE Stop: 09/14/16 08:26 Last Admin: 09/14/16 08:32 Dose: 10 mg Bupivacaine HCl (Marcaine 0.5%) 10 ml .XX .STK-MED ONE Stop: 09/04/16 10:56 Last Admin: 09/04/16 10:55 Dose: 10 ml Cefazolin Sodium (Ancef) 1 gm IV .STK-MED ONE Stop: 09/04/16 11:01 Dextrose/Water (Dextrose 50% In Water) 25 ml IVPUSH ONETIME ONE Stop: 09/07/16 14:08 Last Admin: 09/07/16 14:10 Dose: 25 ml Dextrose/Water (Dextrose 50% In Water) 50 ml IVPUSH ONETIME ONE Stop: 09/07/16 16:42 Last Admin: 09/07/16 16:45 Dose: 50 ml Enoxaparin Sodium (Lovenox) 40 mg SUBCUT DAILY [facility] Last Admin: 09/03/16 21:47 Dose: 40 mg Furosemide (Lasix) 40 mg PO ONETIME ONE Stop: 09/04/16 05:43 Last Admin: 09/04/16 05:53 Dose: 40 mg Furosemide (Lasix) Confirm Administered Dose 40 mg .ROUTE .STK-MED ONE Stop: 09/04/16 05:49 Last Admin: 09/04/16 05:52 Dose: Not Given Furosemide (Lasix) 20 mg IVPUSH ASDIRECTED ONE Stop: 09/04/16 12:36 Last Admin: 09/04/16 17:38 Dose: Not Given Furosemide (Lasix) 20 mg IVPUSH ASDIRECTED ONE Stop: 09/04/16 17:46 Last Admin: 09/04/16 17:37 Dose: 20 mg Furosemide (Lasix) 20 mg IVPUSH DAILY [facility] Last Admin: 09/06/16 08:40 Dose: 20 mg Furosemide (Lasix) 20 mg IVPUSH ONETIME ONE Stop: 09/05/16 13:46 Last Admin: 09/05/16 13:59 Dose: 20 mg Furosemide (Lasix) 40 mg PO ONETIME ONE Stop: 09/07/16 08:28 Last Admin: 09/07/16 08:34 Dose: 40 mg Furosemide (Lasix) 20 mg IVPUSH ONETIME ONE Stop: 09/07/16 13:01 Last Admin: 09/07/16 18:29 Dose: 20 mg Furosemide (Lasix) 60 mg IVPUSH NOW ONE Stop: 09/09/16 09:19 Last Admin: 09/09/16 09:29 Dose: 60 mg Gabapentin (Neurontin) 600 mg PO BID@0800,1400 [facility] Last Admin: 09/04/16 15:13 Dose: Not Given Gabapentin (Neurontin) 900 mg PO BEDTIME [facility] Last Admin: 09/04/16 22:20 Dose: 900 mg Glimepiride (Glimepiride) 4 mg PO BRK [facility] Last Admin: 09/06/16 09:00 Dose: Not Given Glimepiride (Amaryl) 4 mg PO BIDMEALS [facility] Last Admin: 09/05/16 17:54 Dose: 4 mg Glimepiride (Amaryl) Confirm Administered Dose 2 mg .ROUTE .STK-MED ONE Stop: 09/05/16 17:58 Last Admin: 09/05/16 19:22 Dose: Not Given Glimepiride (Glimepiride) 4 mg PO BIDMEALS [facility] Last Admin: 09/07/16 08:19 Dose: 4 mg Heparin Sodium (Porcine) (Heparin Lock Flush 100 Units/Ml Syringe) 10 units .XX .STK-MED ONE Stop: 09/04/16 10:54 Last Admin: 09/04/16 10:53 Dose: 10 units Hydrocodone Bitartrate/Ibuprofen (Vicoprofen) 1 tab PO Q4H PRN PRN Reason: Pain Last Admin: 09/09/16 08:02 Dose: 1 tab Sodium Chloride (Normal Saline) 1,000 mls @ 50 mls/hr IV ASDIRECTED [facility] Last Admin: 09/03/16 19:16 Dose: 50 mls/hr Sodium Chloride (Normal Saline) 250 mls @ 100 mls/hr IV ASDIRECTED [facility] Last Admin: 09/04/16 14:30 Dose: 100 mls/hr Sodium Chloride (Normal Saline) 250 mls @ 100 mls/hr IV ASDIRECTED [facility] Sodium Chloride (Normal Saline) 250 mls @ 100 mls/hr IV ASDIRECTED [facility] Sodium Chloride (Normal Saline) 250 mls @ 100 mls/hr IV ASDIRECTED [facility] Sodium Chloride (Normal Saline) 250 mls @ 100 mls/hr IV ASDIRECTED [facility] Last Admin: 09/07/16 18:40 Dose: 100 mls/hr Ketamine HCl (Ketalar) 45 mg IV .STK-MED ONE Stop: 09/04/16 11:01 Lidocaine HCl (Xylocaine 1%) 10 ml .XX .STK-MED ONE Stop: 09/04/16 10:55 Last Admin: 09/04/16 10:54 Dose: 10 ml Lisinopril (Prinivil) 2.5 mg PO DAILY [facility] Last Admin: 09/06/16 09:00 Dose: Not Given Metformin HCl (Glucophage) 1,000 mg PO BIDM [facility] Last Admin: 09/05/16 07:58 Dose: 1,000 mg Metformin HCl (Glucophage) Confirm Administered Dose 500 mg .ROUTE .STK-MED ONE Stop: 09/05/16 17:48 Last Admin: 09/05/16 19:22 Dose: Not Given Metformin HCl (Glucophage Xr) Confirm Administered Dose 500 mg .ROUTE .STK-MED ONE Stop: 09/05/16 17:53 Last Admin: 09/05/16 19:21 Dose: Not Given Metolazone (Zaroxolyn) 2.5 mg PO MOWEFR [facility] Last Admin: 09/04/16 01:22 Dose: Not Given Metolazone (Zaroxolyn) 2.5 mg PO MOWEFR [facility] Last Admin: 09/03/16 21:51 Dose: 2.5 mg Metolazone (Zaroxolyn) 2.5 mg PO MoWeFr@0600 [facility] Metolazone (Zaroxolyn) 5 mg PO ONETIME ONE Stop: 09/09/16 07:31 Last Admin: 09/09/16 08:02 Dose: 5 mg Metoprolol Succinate (Toprol Xl) 12.5 mg PO DAILY [facility] Last Admin: 09/04/16 15:14 Dose: Not Given Midazolam HCl (Versed 1 Mg/Ml) 2 mg IV .STK-MED ONE Stop: 09/04/16 11:01 Mometasone Furoate (Asmanex Hfa) 0 gm INH BID [facility] Last Admin: 09/06/16 09:00 Dose: Not Given Nitrofurantoin Macrocrystals (Macrobid) 100 mg PO BID [facility] Last Admin: 09/04/16 15:14 Dose: Not Given Non-Formulary Medication (Fluticasone Propionate [Flovent Hfa 220 Mcg]) 2 puff INH BID [facility] Last Admin: 09/04/16 00:15 Dose: Not Given Pantoprazole Sodium (Protonix) 40 mg PO DAILY [facility] Last Admin: 09/04/16 15:14 Dose: Not Given Polyethylene Glycol (Miralax) 17 gm PO DAILY PRN PRN Reason: Constipation Prednisone (Prednisone) 20 mg PO BIDMEALS [facility] Prednisone (Prednisone) 20 mg PO DAILY [facility] Propofol (Diprivan 20 Ml) 150 mg IV .STK-MED ONE Stop: 09/04/16 11:01 Sodium Biphosphate/Sodium Phosphate (Fleet Enema) 133 ml RECTAL ONETIME ONE Stop: 09/14/16 10:23 Last Admin: 09/14/16 10:25 Dose: 133 ml Sodium Chloride (Saline Flush) 10 ml FLUSH ASDIRECTED PRN PRN Reason: Keep Vein Open Last Admin: 09/07/16 21:28 Dose: 10 ml Tramadol HCl (Ultram) 100 mg PO BID [facility] Last Admin: 09/04/16 15:15 Dose: Not Given Tramadol HCl (Ultram) 100 mg PO Q6H PRN PRN Reason: Pain Last Admin: 09/05/16 05:06 Dose: 100 mg Tramadol HCl (Ultram) 100 mg PO Q6H PRN PRN Reason: Pain Last Admin: 09/09/16 09:36 Dose: 100 mg - Exam General: alert, oriented, cooperative Neck: supple Lungs: Clear to auscultation, Normal respiratory effort Cardiovascular: regular rate, regular rhythm, no murmurs - Problem List & Annotations (1) Anemia SNOMED Code(s): 605602068 Code(s): D64.9 - ANEMIA, UNSPECIFIED Status: Acute Current Visit: Yes Qualifiers: Anemia type: unspecified type Qualified Code(s): D64.9 - Anemia, unspecified (2) CHF (congestive heart failure) SNOMED Code(s): 89392845 Code(s): I50.9 - HEART FAILURE, UNSPECIFIED Status: Acute Priority: High Current Visit: No Qualifiers: Congestive heart failure chronicity: chronic Annotation/Comment:: On oral diuretics, dieuresing well. CXR improved. Had long discussion regarding fluid restriction, monitoring weights and adding in diuretics if weight increases. (3) COPD (chronic obstructive pulmonary disease) SNOMED Code(s): 38398238 Code(s): J44.9 - CHRONIC OBSTRUCTIVE PULMONARY DISEASE, UNSPECIFIED Status : Acute Current Visit: No Qualifiers: COPD type: unspecified COPD Qualified Code(s): J44.9 - Chronic obstructive pulmonary disease, unspecified (4) Hypoglycemia SNOMED Code(s): 453036335 Code(s): E16.2 - HYPOGLYCEMIA, UNSPECIFIED Status: Acute Current Visit: Yes (5) Rib pain on right side SNOMED Code(s): 376888032 Code(s): R07.81 - PLEURODYNIA Status: Acute Current Visit: Yes (6) Palliative care status SNOMED Code(s): 784318464 Code(s): Z51.5 - ENCOUNTER FOR PALLIATIVE CARE Status: Acute Current Visit: Yes (7) Constipation SNOMED Code(s): 47054765 Code(s): K59.00 - CONSTIPATION, UNSPECIFIED Status: Acute Current Visit: Yes - Problem List Review Problem List Initiated/Reviewed/Updated: Yes - Plan Plan:: 1. continue current care. 2. Awaiting senior care placement.
[2016-09-15] MEDS: traMADol 50 MG Tab PO SCH ×3 (08:20→21:29)
[2016-09-15] MEDS: Lisinopril 2.5 MG Tab PO SCH (10:30)
[2016-09-15] MEDS: Ondansetron 4 MG Tab.DIS PO PRN (10:37)
[2016-09-15] MEDS ORDERED: Bisacodyl 10 MG Supp RECTAL ONE (13:24)
[2016-09-15] MEDS ORDERED: Sodium Phosphate,Monobasic/Sodium Phosphate,Dibasic Enema 133 ML Bottle RECTAL PRN (13:42)
[2016-09-15] MEDS: atorvaSTATin 40 MG Tab PO SCH (18:10)
[2016-09-15] MEDS: Enoxaparin 40 MG/0.4 ML Syringe SUBCUT SCH (21:29)
[2016-09-16] MEDS: Acetaminophen 325 MG Tab PO PRN (05:14)
[2016-09-16] MEDS: Pantoprazole 40 MG Tab.CR PO SCH (06:00)
[2016-09-16] MEDS: Albuterol/Ipratropium 3.0-0.5 MG/3 ML Neb Soln NEB PRN (07:37)
--- NOTE | 2016-09-16 08:20 | PCM.PN ---
- General Info Date of Service: 09/16/16 Admission Dx/Problem (Free Text): Patient has no changes. She had a good BM yesterday with a suppository. - Patient Data Vitals - most recent: Last Vital Signs Temp 98.8 F 09/16/16 01:00 Pulse 82 09/16/16 07:37 Resp 22 H 09/16/16 01:00 BP 106/55 L 09/16/16 01:00 Pulse Ox 94 L 09/16/16 07:37 Weight - most recent: 234 lb 6 oz I&O - last 24 hours: Intake & Output 09/15/16 09/16/16 09/16/16 22:59 06:59 14:59 Output Total 965 410 Balance -965 -410 Lab Results last 24 hrs: Laboratory Results - last 24 hr 09/15/16 09/15/16 Range/Units 12:13 17:25 POC Glucose 128 H 138 H (80-116) mg/dL Med Orders - Current: Current Medications Acetaminophen (Tylenol Extra Strength) 1,000 mg PO TID [facility] Last Admin: 09/15/16 21:29 Dose: 1,000 mg Acetaminophen (Tylenol) 650 mg PO Q4H PRN PRN Reason: Pain (mild 1-3) Last Admin: 09/16/16 05:14 Dose: 650 mg Albuterol (Ventolin Hfa) 0 gm INH Q4H PRN PRN Reason: Shortness of Breath Albuterol/Ipratropium (Duoneb 3.0-0.5 Mg/3 Ml) 3 ml NEB Q6H PRN PRN Reason: Shortness of Breath Last Admin: 09/16/16 07:37 Dose: 3 ml Atorvastatin Calcium (Lipitor) 40 mg PO WITHDINNER [facility] Last Admin: 09/15/16 18:10 Dose: 40 mg Bisacodyl (Dulcolax) 10 mg RECTAL DAILY PRN PRN Reason: Constipation Last Admin: 09/14/16 09:36 Dose: 10 mg Enoxaparin Sodium (Lovenox) 40 mg SUBCUT DAILY@2100 [facility] Last Admin: 09/15/16 21:29 Dose: 40 mg Fish Oil (Fish Oil) 1 gm PO DAILY [facility] Last Admin: 09/15/16 08:16 Dose: 1 gm Furosemide (Lasix) 80 mg PO BID@08,14 [facility] Last Admin: 09/15/16 14:48 Dose: 80 mg Heparin Sodium (Porcine) (Heparin Lock Flush 10 Units/Ml) 50 unit FLUSH ASDIRECTED PRN PRN Reason: port-a cath flush Last Admin: 09/11/16 08:48 Dose: 50 unit Dextrose/Water (Dextrose 10% In Water) 1,000 mls @ 70 mls/hr IV ASDIRECTED [facility] Last Admin: 09/09/16 02:59 Dose: 70 mls/hr Lisinopril (Prinivil) 2.5 mg PO DAILY [facility] Last Admin: 09/15/16 10:30 Dose: 2.5 mg Lorazepam (Ativan) 0.5 mg PO Q8H PRN PRN Reason: Anxiety Last Admin: 09/14/16 08:28 Dose: 0.5 mg Magnesium Hydroxide (Milk Of Magnesia) 30 ml PO DAILY PRN PRN Reason: Constipation Last Admin: 09/12/16 19:44 Dose: 30 ml Metformin HCl (Glucophage Xr) 1,000 mg PO BIDMEALS [facility] Last Admin: 09/15/16 18:10 Dose: 1,000 mg Ondansetron HCl (Zofran Odt) 4 mg PO Q4H PRN PRN Reason: Nausea/Vomiting Last Admin: 09/15/16 10:37 Dose: 4 mg Pantoprazole Sodium (Protonix) 40 mg PO 0600 [facility] Last Admin: 09/16/16 06:00 Dose: 40 mg Polyethylene Glycol (Miralax) 17 gm PO DAILY [facility] Last Admin: 09/15/16 08:16 Dose: 17 gm Polysaccharide Iron Complex (Ferrex 150) 150 mg PO TID [facility] Last Admin: 09/15/16 21:29 Dose: 150 mg Sodium Biphosphate/Sodium Phosphate (Fleet Enema) 133 ml RECTAL DAILY PRN PRN Reason: Constipation Last Admin: 09/15/16 16:04 Dose: 133 ml Sodium Chloride (Saline Flush) 10 ml FLUSH ASDIRECTED [facility] Last Admin: 09/11/16 08:48 Dose: 10 ml Tramadol HCl (Ultram) 100 mg PO TID [facility] Last Admin: 09/15/16 21:29 Dose: 100 mg Discontinued Medications Acetaminophen (Tylenol Extra Strength) 1,000 mg PO TID PRN PRN Reason: Pain Last Admin: 09/08/16 16:16 Dose: 1,000 mg Acetaminophen (Tylenol Extra Strength) 1,000 mg PO ONETIME ONE Stop: 09/05/16 10:16 Last Admin: 09/05/16 10:07 Dose: 1,000 mg Bisacodyl (Dulcolax) 10 mg RECTAL BID ONE Stop: 09/14/16 08:26 Last Admin: 09/14/16 08:32 Dose: 10 mg Bupivacaine HCl (Marcaine 0.5%) 10 ml .XX .STK-MED ONE Stop: 09/04/16 10:56 Last Admin: 09/04/16 10:55 Dose: 10 ml Cefazolin Sodium (Ancef) 1 gm IV .STK-MED ONE Stop: 09/04/16 11:01 Dextrose/Water (Dextrose 50% In Water) 25 ml IVPUSH ONETIME ONE Stop: 09/07/16 14:08 Last Admin: 09/07/16 14:10 Dose: 25 ml Dextrose/Water (Dextrose 50% In Water) 50 ml IVPUSH ONETIME ONE Stop: 09/07/16 16:42 Last Admin: 09/07/16 16:45 Dose: 50 ml Enoxaparin Sodium (Lovenox) 40 mg SUBCUT DAILY [facility] Last Admin: 09/03/16 21:47 Dose: 40 mg Furosemide (Lasix) 40 mg PO ONETIME ONE Stop: 09/04/16 05:43 Last Admin: 09/04/16 05:53 Dose: 40 mg Furosemide (Lasix) Confirm Administered Dose 40 mg .ROUTE .STK-MED ONE Stop: 09/04/16 05:49 Last Admin: 09/04/16 05:52 Dose: Not Given Furosemide (Lasix) 20 mg IVPUSH ASDIRECTED ONE Stop: 09/04/16 12:36 Last Admin: 09/04/16 17:38 Dose: Not Given Furosemide (Lasix) 20 mg IVPUSH ASDIRECTED ONE Stop: 09/04/16 17:46 Last Admin: 09/04/16 17:37 Dose: 20 mg Furosemide (Lasix) 20 mg IVPUSH DAILY [facility] Last Admin: 09/06/16 08:40 Dose: 20 mg Furosemide (Lasix) 20 mg IVPUSH ONETIME ONE Stop: 09/05/16 13:46 Last Admin: 09/05/16 13:59 Dose: 20 mg Furosemide (Lasix) 40 mg PO ONETIME ONE Stop: 09/07/16 08:28 Last Admin: 09/07/16 08:34 Dose: 40 mg Furosemide (Lasix) 20 mg IVPUSH ONETIME ONE Stop: 09/07/16 13:01 Last Admin: 09/07/16 18:29 Dose: 20 mg Furosemide (Lasix) 60 mg IVPUSH NOW ONE Stop: 09/09/16 09:19 Last Admin: 09/09/16 09:29 Dose: 60 mg Gabapentin (Neurontin) 600 mg PO BID@0800,1400 [facility] Last Admin: 09/04/16 15:13 Dose: Not Given Gabapentin (Neurontin) 900 mg PO BEDTIME [facility] Last Admin: 09/04/16 22:20 Dose: 900 mg Glimepiride (Glimepiride) 4 mg PO BRK [facility] Last Admin: 09/06/16 09:00 Dose: Not Given Glimepiride (Amaryl) 4 mg PO BIDMEALS [facility] Last Admin: 09/05/16 17:54 Dose: 4 mg Glimepiride (Amaryl) Confirm Administered Dose 2 mg .ROUTE .STK-MED ONE Stop: 09/05/16 17:58 Last Admin: 09/05/16 19:22 Dose: Not Given Glimepiride (Glimepiride) 4 mg PO BIDMEALS [facility] Last Admin: 09/07/16 08:19 Dose: 4 mg Heparin Sodium (Porcine) (Heparin Lock Flush 100 Units/Ml Syringe) 10 units .XX .STK-MED ONE Stop: 09/04/16 10:54 Last Admin: 09/04/16 10:53 Dose: 10 units Hydrocodone Bitartrate/Ibuprofen (Vicoprofen) 1 tab PO Q4H PRN PRN Reason: Pain Last Admin: 09/09/16 08:02 Dose: 1 tab Sodium Chloride (Normal Saline) 1,000 mls @ 50 mls/hr IV ASDIRECTED [facility] Last Admin: 09/03/16 19:16 Dose: 50 mls/hr Sodium Chloride (Normal Saline) 250 mls @ 100 mls/hr IV ASDIRECTED [facility] Last Admin: 09/04/16 14:30 Dose: 100 mls/hr Sodium Chloride (Normal Saline) 250 mls @ 100 mls/hr IV ASDIRECTED [facility] Sodium Chloride (Normal Saline) 250 mls @ 100 mls/hr IV ASDIRECTED [facility] Sodium Chloride (Normal Saline) 250 mls @ 100 mls/hr IV ASDIRECTED [facility] Sodium Chloride (Normal Saline) 250 mls @ 100 mls/hr IV ASDIRECTED [facility] Last Admin: 09/07/16 18:40 Dose: 100 mls/hr Ketamine HCl (Ketalar) 45 mg IV .STK-MED ONE Stop: 09/04/16 11:01 Lidocaine HCl (Xylocaine 1%) 10 ml .XX .STK-MED ONE Stop: 09/04/16 10:55 Last Admin: 09/04/16 10:54 Dose: 10 ml Lisinopril (Prinivil) 2.5 mg PO DAILY [facility] Last Admin: 09/06/16 09:00 Dose: Not Given Metformin HCl (Glucophage) 1,000 mg PO BIDM [facility] Last Admin: 09/05/16 07:58 Dose: 1,000 mg Metformin HCl (Glucophage) Confirm Administered Dose 500 mg .ROUTE .STK-MED ONE Stop: 09/05/16 17:48 Last Admin: 09/05/16 19:22 Dose: Not Given Metformin HCl (Glucophage Xr) Confirm Administered Dose 500 mg .ROUTE .STK-MED ONE Stop: 09/05/16 17:53 Last Admin: 09/05/16 19:21 Dose: Not Given Metolazone (Zaroxolyn) 2.5 mg PO MOWEFR [facility] Last Admin: 09/04/16 01:22 Dose: Not Given Metolazone (Zaroxolyn) 2.5 mg PO MOWEFR [facility] Last Admin: 09/03/16 21:51 Dose: 2.5 mg Metolazone (Zaroxolyn) 2.5 mg PO MoWeFr@0600 [facility] Metolazone (Zaroxolyn) 5 mg PO ONETIME ONE Stop: 09/09/16 07:31 Last Admin: 09/09/16 08:02 Dose: 5 mg Metoprolol Succinate (Toprol Xl) 12.5 mg PO DAILY [facility] Last Admin: 09/04/16 15:14 Dose: Not Given Midazolam HCl (Versed 1 Mg/Ml) 2 mg IV .STK-MED ONE Stop: 09/04/16 11:01 Mometasone Furoate (Asmanex Hfa) 0 gm INH BID [facility] Last Admin: 09/06/16 09:00 Dose: Not Given Nitrofurantoin Macrocrystals (Macrobid) 100 mg PO BID [facility] Last Admin: 09/04/16 15:14 Dose: Not Given Non-Formulary Medication (Fluticasone Propionate [Flovent Hfa 220 Mcg]) 2 puff INH BID [facility] Last Admin: 09/04/16 00:15 Dose: Not Given Pantoprazole Sodium (Protonix) 40 mg PO DAILY [facility] Last Admin: 09/04/16 15:14 Dose: Not Given Polyethylene Glycol (Miralax) 17 gm PO DAILY PRN PRN Reason: Constipation Prednisone (Prednisone) 20 mg PO BIDMEALS [facility] Prednisone (Prednisone) 20 mg PO DAILY [facility] Propofol (Diprivan 20 Ml) 150 mg IV .STK-MED ONE Stop: 09/04/16 11:01 Sodium Biphosphate/Sodium Phosphate (Fleet Enema) 133 ml RECTAL ONETIME ONE Stop: 09/14/16 10:23 Last Admin: 09/14/16 10:25 Dose: 133 ml Sodium Chloride (Saline Flush) 10 ml FLUSH ASDIRECTED PRN PRN Reason: Keep Vein Open Last Admin: 09/07/16 21:28 Dose: 10 ml Tramadol HCl (Ultram) 100 mg PO BID [facility] Last Admin: 09/04/16 15:15 Dose: Not Given Tramadol HCl (Ultram) 100 mg PO Q6H PRN PRN Reason: Pain Last Admin: 09/05/16 05:06 Dose: 100 mg Tramadol HCl (Ultram) 100 mg PO Q6H PRN PRN Reason: Pain Last Admin: 09/09/16 09:36 Dose: 100 mg - Exam Quality Assessment: supplemental oxygen General: alert, oriented, cooperative Neck: supple Lungs: Clear to auscultation, Normal respiratory effort - Problem List & Annotations (1) Anemia SNOMED Code(s): 845548548 Code(s): D64.9 - ANEMIA, UNSPECIFIED Status: Acute Current Visit: Yes Qualifiers: Anemia type: unspecified type Qualified Code(s): D64.9 - Anemia, unspecified (2) CHF (congestive heart failure) SNOMED Code(s): 16048483 Code(s): I50.9 - HEART FAILURE, UNSPECIFIED Status: Acute Priority: High Current Visit: No Qualifiers: Congestive heart failure chronicity: chronic Annotation/Comment:: On oral diuretics, dieuresing well. CXR improved. Had long discussion regarding fluid restriction, monitoring weights and adding in diuretics if weight increases. (3) COPD (chronic obstructive pulmonary disease) SNOMED Code(s): 13494345 Code(s): J44.9 - CHRONIC OBSTRUCTIVE PULMONARY DISEASE, UNSPECIFIED Status : Acute Current Visit: No Qualifiers: COPD type: unspecified COPD Qualified Code(s): J44.9 - Chronic obstructive pulmonary disease, unspecified (4) Hypoglycemia SNOMED Code(s): 013954623 Code(s): E16.2 - HYPOGLYCEMIA, UNSPECIFIED Status: Acute Current Visit: Yes (5) Rib pain on right side SNOMED Code(s): 170498695 Code(s): R07.81 - PLEURODYNIA Status: Acute Current Visit: Yes (6) Palliative care status SNOMED Code(s): 274705453 Code(s): Z51.5 - ENCOUNTER FOR PALLIATIVE CARE Status: Acute Current Visit: Yes (7) Constipation SNOMED Code(s): 14611866 Code(s): K59.00 - CONSTIPATION, UNSPECIFIED Status: Acute Current Visit: Yes - Problem List Review Problem List Initiated/Reviewed/Updated: Yes - My Orders Last 24 Hours: My Active Orders 09/15/16 13:42 Na Phos,M-B/Na Phos,DI-B [Fleet Enema] 133 ml RECTAL DAILY PRN 09/16/16 07:42 CBC WITH AUTO DIFF [HEME] Routine - Plan Plan:: 1. continue current care. 2. Awaiting correction placement. 3. Check CBC just to make sure her anemia stable before transfer.
[2016-09-16] MEDS: Iron Polysaccharides Complex 150 MG Cap PO SCH ×3 (08:32→20:26)
[2016-09-16] MEDS: Fish Oil/Omega-3 Fatty Acids 1 Gm Cap PO SCH (08:32)
[2016-09-16] MEDS: traMADol 50 MG Tab PO SCH ×3 (08:32→20:26)
[2016-09-16] MEDS: metFORMIN 500 MG Tab.ER PO SCH ×2 (08:32→17:43)
[2016-09-16] MEDS: Lisinopril 2.5 MG Tab PO SCH (08:32)
[2016-09-16] MEDS: Furosemide 80 MG Tab PO SCH ×2 (08:32→13:45)
[2016-09-16] MEDS: Acetaminophen 500 MG Tab PO SCH ×3 (08:32→20:26)
[2016-09-16] MEDS: Polyethylene Glycol 3350 Powder 17 GM Packet PO SCH (08:33)
[2016-09-16] MEDS: Ondansetron 4 MG Tab.DIS PO PRN ×2 (13:51→17:42)
[2016-09-16] MEDS: atorvaSTATin 40 MG Tab PO SCH (17:44)
[2016-09-16] MEDS: Enoxaparin 40 MG/0.4 ML Syringe SUBCUT SCH (20:26)
[2016-09-17] MEDS: Acetaminophen 325 MG Tab PO PRN ×2 (03:03→19:03)
[2016-09-17] MEDS: Albuterol/Ipratropium 3.0-0.5 MG/3 ML Neb Soln NEB PRN ×2 (04:16→07:40)
[2016-09-17] MEDS: LORazepam 0.5 MG Tab PO PRN ×2 (04:40→21:33)
[2016-09-17] MEDS: Pantoprazole 40 MG Tab.CR PO SCH (06:21)
[2016-09-17] MEDS: Furosemide 80 MG Tab PO SCH ×2 (08:19→14:12)
[2016-09-17] MEDS: metFORMIN 500 MG Tab.ER PO SCH ×2 (08:19→18:25)
[2016-09-17] MEDS: Polyethylene Glycol 3350 Powder 17 GM Packet PO SCH (08:23)
[2016-09-17] MEDS: Iron Polysaccharides Complex 150 MG Cap PO SCH ×3 (08:23→21:24)
[2016-09-17] MEDS: Lisinopril 2.5 MG Tab PO SCH (08:23)
[2016-09-17] MEDS: Acetaminophen 500 MG Tab PO SCH ×3 (08:23→21:23)
[2016-09-17] MEDS: traMADol 50 MG Tab PO SCH ×3 (08:23→21:32)
[2016-09-17] MEDS: Fish Oil/Omega-3 Fatty Acids 1 Gm Cap PO SCH (08:23)
[2016-09-17] MEDS ORDERED: Albuterol/Ipratropium 3.0-0.5 MG/3 ML Neb Soln NEB PRN (11:20)
[2016-09-17] MEDS: Albuterol/Ipratropium 3.0-0.5 MG/3 ML Neb Soln NEB SCH ×3 (11:30→21:19)
--- NOTE | 2016-09-17 12:27 | PN ---
DATE SEEN: 09/17/2016 SUBJECTIVE: This is a 61-year-old female with a history of chronic recurrent anemia, chronic obstructive pulmonary disease, morbid obesity, congestive heart failure, chronic obstructive pulmonary disease with bronchospasm, and type 2 diabetes seen today for followup. She actually has noticed to have more shortness of breath today. She denies any significant cough. No fever, chills, or night sweats. She said she had a little bit of sore throat. She has had no vomiting or diarrhea, dysuria or hematuria. No increase in peripheral edema has been noted. Appetite has been fairly good. Her medications were reviewed. She apparently has albuterol at the bedside, she has been using frequently along with Asmanex at her bedside, using infrequently. ALLERGIES: Documented. OBJECTIVE: GENERAL: She is sitting and at this time, in no acute distress. VITAL SIGNS: O2 saturation is 88%, pulse is slightly irregular at 88 beats per minute, blood pressure 117/59. The last weight we have is yesterday at 234.6. HEENT: Unremarkable. Although, she appears slightly pale. Thyroid was not enlarged. Carotid pulses were strong and equal. CHEST: Revealed no active wheezes. The expiratory phase is slightly prolonged, but there is no pursed lip breathing. Minimal if any tachypnea. CARDIOVASCULAR: Revealed a normal S1 and S2 without murmur, rub, or gallop. ABDOMEN: Soft, markedly obese, but nontender without organomegaly or masses. Bowel sounds are normal. EXTREMITIES: Without clubbing, just a trace edema was noted about the ankles. LABORATORY DATA: Labs done on 09/16/2016 revealed her hemoglobin to be 10.4, hematocrit of 33.1, white count of 6000 with a normal differential, platelets were normal at 183,000. Her fasting glucose today was 135 mg%. IMPRESSION: 1. Increased shortness of breath with a history of chronic obstructive pulmonary disease bronchospasm. 2. Chronic anemia, stable. 3. Morbid obesity. 4. History of congestive heart failure. 5. History of type 2 diabetes. PLAN: At this point, we will start her nebulizer in the form of DuoNebs q.i.d. on a regular basis and restart her Asmanex 2 puffs b.i.d. We will continue her other medications as before and watch closely. Plan is still for detention placement when bed is available and proceed from there. /[id number] /MODL
[2016-09-17] MEDS: Ondansetron 4 MG Tab.DIS PO PRN (17:21)
[2016-09-17] MEDS: atorvaSTATin 40 MG Tab PO SCH (18:25)
[2016-09-17] MEDS: Enoxaparin 40 MG/0.4 ML Syringe SUBCUT SCH (21:15)
[2016-09-17] MEDS: Mometasone Furoate HFA 200 mcg/Puff 13 GM Inhaler INH SCH (21:22)
[2016-09-18] MEDS: Albuterol 8 GM Inhaler INH PRN (02:30)
[2016-09-18] MEDS: Pantoprazole 40 MG Tab.CR PO SCH (05:30)
[2016-09-18] MEDS: Albuterol/Ipratropium 3.0-0.5 MG/3 ML Neb Soln NEB SCH ×4 (07:01→20:42)
[2016-09-18] MEDS: Ondansetron 4 MG Tab.DIS PO PRN ×3 (08:18→17:51)
[2016-09-18] MEDS: LORazepam 0.5 MG Tab PO PRN ×2 (08:18→20:47)
[2016-09-18] MEDS: traMADol 50 MG Tab PO SCH ×3 (08:18→20:49)
[2016-09-18] MEDS: metFORMIN 500 MG Tab.ER PO SCH ×2 (08:19→17:47)
[2016-09-18] MEDS: Iron Polysaccharides Complex 150 MG Cap PO SCH ×3 (08:20→20:45)
[2016-09-18] MEDS: Mometasone Furoate HFA 200 mcg/Puff 13 GM Inhaler INH SCH ×2 (08:20→20:44)
[2016-09-18] MEDS: Fish Oil/Omega-3 Fatty Acids 1 Gm Cap PO SCH (08:21)
[2016-09-18] MEDS: Lisinopril 2.5 MG Tab PO SCH (08:21)
[2016-09-18] MEDS: Furosemide 80 MG Tab PO SCH ×2 (08:22→13:04)
[2016-09-18] MEDS: Acetaminophen 500 MG Tab PO SCH ×3 (08:22→20:46)
[2016-09-18] MEDS: Polyethylene Glycol 3350 Powder 17 GM Packet PO SCH (08:23)
--- NOTE | 2016-09-18 09:58 | PN ---
DATE SEEN: 09/18/2016 SUBJECTIVE: This is a 61-year-old female with a history of recurrent anemia, was refused workup in the past. Morbid obesity with severe chronic obstructive pulmonary disease. Arteriosclerotic heart disease with congestive heart failure, type 2 diabetes mellitus, seen again today for followup. She says she actually is a little bit better today. She had noticed less shortness of breath. Feels like the abwja-ach-stuvp nebulizer treatments have been helpful. She says her cough is nonproductive. She has had no fever, chills, or night sweats. She denies any melena, hematochezia, hematemesis, or hematuria. Her medications were reviewed and allergies were reviewed, all of which were accurate. OBJECTIVE: GENERAL: She appears to be, at this time, in no acute distress. VITAL SIGNS: Afebrile. Her temperature was 99 degrees, blood pressure 95/48, pulse is 99 and regular, respirations are 22, O2 saturation on 10 L is 86%. HEENT: Unremarkable, except mucous membranes are slightly pale. NECK: There is no jugular venous distention. CHEST: Without rales. Expiratory phase is prolonged. No active wheezes are identified. No rhonchi are noted. CARDIOVASCULAR: Reveals a normal S1 and S2 without murmur, rub, or gallop. The abdomen is massively obese without specific point tenderness. There is no rebound or rigidity. EXTREMITIES: Without clubbing, just a trace edema was noted about her ankles. No ulcerations or areas of breakdown were noted in the extremities. NEUROLOGIC: She is completely intact. IMPRESSION: 1. Severe chronic obstructive pulmonary disease, aggravated by her weight and Pickwickian syndrome. 2. Arteriosclerotic heart disease with a history of congestive heart failure. 3. Chronic anemia. It has been normocytic normochromic in the past, but the patient has refused workup. 4. Type 2 diabetes mellitus. 5. Previous history of congestive heart failure. PLAN: We will check a chest x-ray today to make sure we are not developing anything new. Blood work is scheduled for tomorrow morning. longterm transfer has been arranged with [facility], and prescriptions for her high- flow oxygen concentrator have been already sent. If all goes well, we will plan on discharge on Tuesday to the residential. /[id number] /ROSIE
[2016-09-18] MEDS: atorvaSTATin 40 MG Tab PO SCH (17:47)
[2016-09-18] MEDS: Enoxaparin 40 MG/0.4 ML Syringe SUBCUT SCH (20:45)
[2016-09-18] MEDS: Nitrofurantoin Monohydrate/Macrocrystalline 100 MG Cap PO SCH (20:46)
[2016-09-19] MEDS: Albuterol/Ipratropium 3.0-0.5 MG/3 ML Neb Soln NEB PRN (03:15)
[2016-09-19] MEDS: Albuterol 8 GM Inhaler INH PRN ×2 (03:19→21:21)
[2016-09-19] MEDS: LORazepam 0.5 MG Tab PO PRN (04:19)
[2016-09-19] MEDS: Ondansetron 4 MG Tab.DIS PO PRN ×3 (04:19→21:20)
[2016-09-19] MEDS: Pantoprazole 40 MG Tab.CR PO SCH (05:11)
[2016-09-19] MEDS: Albuterol/Ipratropium 3.0-0.5 MG/3 ML Neb Soln NEB SCH ×4 (07:06→21:25)
[2016-09-19] MEDS: Furosemide 80 MG Tab PO SCH ×2 (08:39→14:12)
[2016-09-19] MEDS: Mometasone Furoate HFA 200 mcg/Puff 13 GM Inhaler INH SCH ×2 (08:39→21:20)
[2016-09-19] MEDS: metFORMIN 500 MG Tab.ER PO SCH ×2 (08:39→17:48)
[2016-09-19] MEDS: Polyethylene Glycol 3350 Powder 17 GM Packet PO SCH (08:40)
[2016-09-19] MEDS: Fish Oil/Omega-3 Fatty Acids 1 Gm Cap PO SCH (08:40)
[2016-09-19] MEDS: Iron Polysaccharides Complex 150 MG Cap PO SCH ×3 (08:40→21:23)
[2016-09-19] MEDS: Lisinopril 2.5 MG Tab PO SCH (08:41)
[2016-09-19] MEDS: Acetaminophen 500 MG Tab PO SCH ×3 (08:41→21:21)
[2016-09-19] MEDS: traMADol 50 MG Tab PO SCH ×3 (08:44→21:20)
[2016-09-19] MEDS: Nitrofurantoin Monohydrate/Macrocrystalline 100 MG Cap PO SCH ×2 (08:44→21:27)
[2016-09-19] MEDS: Heparin Sodium 10 Units/ML 5 ML Syringe FLUSH PRN (10:35)
[2016-09-19] MEDS: Acetaminophen 325 MG Tab PO PRN (12:24)
--- NOTE | 2016-09-19 13:34 | PN ---
DATE SEEN: 09/19/2016 SUBJECTIVE: A 61-year-old female with history of chronic obstructive pulmonary disease, arteriosclerotic heart disease with congestive heart failure, recurrent anemia, type 2 diabetes mellitus, and recent cystitis, seen today for followup. She says she just does not feel good today. She feels more short of breath and says that her oxygen saturation had dropped to 75%. She is on 10 L of oxygen. She says she has had no increasing cough. No sore throat. Denies any ear pain. There has been no vomiting or diarrhea. No actual dysuria and increased urinary frequency noted yesterday seemed to be a little bit better today. We started Macrobid 100 mg b.i.d. yesterday for possible UTI. Urine culture is still pending. MEDICATIONS: Reviewed. ALLERGIES: Reviewed. OBJECTIVE: GENERAL: She appears to be at this time in no acute distress. VITAL SIGNS: Afebrile. Blood pressure 101/53, pulse is between 90 and 96 and regular, O2 saturations vary. When we put it on her fingers, it is difficulty to obtain because she has a poor peripheral circulation anywhere from 85% to 88%. We put her on forehead and it is usually 90% to 95% and this is on 10 L of oxygen. HEENT: Unremarkable. Although, she still appears to be somewhat pale, but there is no jugular venous distention. Carotid pulses strong and equal without bruits while sitting upright. CHEST: Revealed a few bibasilar crackles but these cleared with cough. No expiratory wheezes were noted. No other rales or rhonchi. No retractions or tachypnea. CARDIOVASCULAR: Revealed a normal S1 and S2 and at this time, no murmur, rub, or gallop were noted. ABDOMEN: Quite obese, but otherwise unremarkable without tenderness, organomegaly, or masses. EXTREMITIES: She has no significant peripheral edema. If there is any, just a trace in the ankles bilaterally without ulcerations or areas of breakdown. Skin turgor is decreased. LABORATORY DATA: Lab today revealed a hemoglobin of 9.4, hematocrit 28.2, white count of 3600, and platelets were 183,000. Sodium 134, potassium at 3.9, chloride of 98, CO2 was 29. Her creatinine was 0.7, BUN of 22, glucose was 162. As I said, urinalysis yesterday revealed pyuria. Urine culture shows greater than 100,000 colonies of gram-negative rods. ID is still pending. IMPRESSION: 1. Severe chronic obstructive pulmonary disease with dyspnea on exertion. 2. Arteriosclerotic heart disease with history of congestive heart failure. 3. Anemia of undetermined etiology. The patient refuses further workup. 4. Cystitis. 5. Type 2 diabetes mellitus. 6. Obesity. PLAN: I did a chest x-ray because of her increased dyspnea and initially I felt that she had a rather significant infiltrate in the right middle lobe. However, I compared with x-rays done on September 07 and it really has not changed at all. I then reviewed the CT scan done in July and no significant pulmonary abnormalities were identified. No lymphadenopathy. No masses, lesions, or other abnormalities were identified other than evidence of some atelectasis and fibrosis. Because of the fact that her chest x-ray is not changed at all. She has a normal white count. I do not really think she has pneumonia. I think most of this is related to her COPD and may be some mild CHF. She is already on antibiotics for cystitis and await the results of the identification and sensitivity. We talked about trying to get some activity as she just either is lying in bed or sitting in chair and does not do much more and she is amenable to that. She is scheduled actually for discharge to the senior care on high- flow oxygen tomorrow and I assured her that at this point, nothing new has been noted on her x-rays to indicate pneumonia or decline in her current condition. We will continue to monitor and hopefully by tomorrow, we will have the rest of her lab results. /[id number] [id number] /TABATHAL
[2016-09-19] MEDS: atorvaSTATin 40 MG Tab PO SCH ×2 (17:48→18:01)
[2016-09-19] MEDS: LORazepam 1 MG Tab PO SCH (21:20)
[2016-09-19] MEDS: Enoxaparin 40 MG/0.4 ML Syringe SUBCUT SCH (21:25)
[2016-09-20] MEDS: LORazepam 0.5 MG Tab PO PRN ×2 (05:29→15:32)
[2016-09-20] MEDS: Pantoprazole 40 MG Tab.CR PO SCH (05:29)
[2016-09-20] MEDS: Acetaminophen 325 MG Tab PO PRN (05:29)
[2016-09-20] MEDS: Albuterol/Ipratropium 3.0-0.5 MG/3 ML Neb Soln NEB SCH ×4 (07:46→21:27)
[2016-09-20] MEDS: Polyethylene Glycol 3350 Powder 17 GM Packet PO SCH (08:32)
[2016-09-20] MEDS: Furosemide 80 MG Tab PO SCH ×2 (08:33→13:14)
[2016-09-20] MEDS: metFORMIN 500 MG Tab.ER PO SCH ×2 (08:33→19:03)
[2016-09-20] MEDS: Mometasone Furoate HFA 200 mcg/Puff 13 GM Inhaler INH SCH ×2 (08:33→21:26)
[2016-09-20] MEDS: Fish Oil/Omega-3 Fatty Acids 1 Gm Cap PO SCH (08:34)
[2016-09-20] MEDS: Iron Polysaccharides Complex 150 MG Cap PO SCH ×3 (08:34→20:36)
[2016-09-20] MEDS: Lisinopril 2.5 MG Tab PO SCH (08:35)
[2016-09-20] MEDS: Acetaminophen 500 MG Tab PO SCH ×3 (08:35→20:38)
[2016-09-20] MEDS: traMADol 50 MG Tab PO SCH ×3 (08:41→20:38)
[2016-09-20] MEDS: Ondansetron 4 MG Tab.DIS PO PRN ×2 (08:41→13:12)
[2016-09-20] MEDS: Cephalexin 500 MG Cap PO SCH ×3 (09:42→20:37)
--- NOTE | 2016-09-20 11:20 | CR ---
INDICATION: Dyspnea on exertion. CHEST: PA and lateral views of the chest 09/19/2016 were compared with 2016, 08/06/2016, and 09/07/2016, revealing suggestion of bibasilar pleuroparenchymal changes which may be on the basis of pneumonia and pleuritis. The heart is enlarged. An A-Port is again noted in place with tip unchanged in position. Prominent michelle again noted, compatible with nodular masses seen previously. Diaphragm leaves are flattened with prominent AP diameter, compatible with COPD. There may be diminished bone density suggesting osteoporosis. No definite evidence of CHF is seen. IMPRESSION: 1. Possible bibasilar pneumonia and pleuritis. 2. COPD. 3. ASHD with fairly marked cardiomegaly, question the possibility of pericardial effusion. 4. A-Port in place. 5. Possible osteoporosis. MTDD
--- NOTE | 2016-09-20 12:34 | PN ---
DATE SEEN: 09/20/2016 SUBJECTIVE: A 61-year-old female with history of end-stage oxygen-dependent COPD, arteriosclerotic heart disease with congestive heart failure, type 2 diabetes mellitus, obesity, recurrent anemia of undetermined etiology, and recent cystitis, seen today for followup. She did take a fall yesterday and suffered a bruise on the back of her head. There was no loss of consciousness and she at this time has no headache or blurred vision. Denies any numbness or tingling of any extremity. There has been no nausea or vomiting. She slept well last night. We did increase her Ativan to 1 mg at bedtime which has actually worked very well for her. She seems much less anxious today. OBJECTIVE: GENERAL: She appears quite comfortable and at this time in no acute distress. VITAL SIGNS: Afebrile. Blood pressure 108/59, pulse was 90 and regular, respirations were anywhere from 18 to 24, O2 saturation ranges from 85% to 90% on 10 L of oxygen. HEENT: Unremarkable except for pale mucous membranes. Thyroid was not enlarged. Carotid pulses strong and equal without bruits. CHEST: Clear. No wheezes, rales, or rhonchi were noted and the expiratory phase was prolonged but no adventitial sounds were identified. There were no retractions. CARDIOVASCULAR: Revealed a normal S1, S2 without murmur, rub, or gallop. ABDOMEN: Unremarkable except for rather marked obesity. EXTREMITIES: Without clubbing. No edema was noted. SKIN: Somewhat pale, but otherwise unremarkable. LABORATORY: No new labs were done today. Urinalysis did in fact grow to E. coli but it was resistant to multiple antibiotics including the nitrofurantoin; it is, however, sensitive to cephalexin. IMPRESSION: 1. Cystitis, resistant to nitrofurantoin. 2. Chronic obstructive pulmonary disease that is oxygen dependent. 3. Arteriosclerotic heart disease with a history of congestive heart failure. 4. Anemia of undetermined etiology. 5. Type 2 diabetes mellitus. 6. Obesity. 7. Remote history of peripheral neuropathy. 8. Recent fall with mild contusion in the occipital area of the head, currently stable. 9. Chronic anxiety. 10.History of gastroesophageal reflux, along with hyperlipidemia. PLAN: I am going to discontinue the nitrofurantoin, switch over to cephalexin 500 mg p.o. t.i.d. She is ready for the halfway and [facility] has agreed to accept her as soon as they get her high-flow oxygen concentrator which will either be today or tomorrow. When that is accomplished, she will be discharged to the halfway and we will follow her anemia closely with weekly hemograms and biweekly panel 8s. /[id number] [id number] /ROSIE
[2016-09-20] MEDS: Nitrofurantoin Monohydrate/Macrocrystalline 100 MG Cap PO SCH (13:13)
[2016-09-20] MEDS: Albuterol 8 GM Inhaler INH PRN ×2 (16:21→20:35)
[2016-09-20] MEDS: atorvaSTATin 40 MG Tab PO SCH (19:02)
[2016-09-20] MEDS: Albuterol/Ipratropium 3.0-0.5 MG/3 ML Neb Soln NEB PRN (19:32)
[2016-09-20] MEDS: LORazepam 1 MG Tab PO SCH (20:36)
[2016-09-20] MEDS: Enoxaparin 40 MG/0.4 ML Syringe SUBCUT SCH (20:37)
[2016-09-20] MEDS: Sodium Chloride 0.9% 10 ML Syringe FLUSH SCH (22:30)
[2016-09-20] MEDS ORDERED: Nitroglycerin 0.4 MG Tab.SL SL PRN (22:31)
[2016-09-20] MEDS ORDERED: Furosemide 40 MG/4 ML VIAL IVPUSH ONE (22:32)
[2016-09-20] MEDS ORDERED: Iopamidol 755 Mg/ML 100 ML Bottle IV ONE (23:21)
[2016-09-21] MEDS: Acetaminophen 325 MG Tab PO PRN (01:11)
[2016-09-21] MEDS: Heparin Sodium 10 Units/ML 5 ML Syringe FLUSH PRN ×2 (01:12→09:07)
[2016-09-21] MEDS ORDERED: LORazepam 1 MG Tab PO ONE (03:12)
[2016-09-21] MEDS: Albuterol 8 GM Inhaler INH PRN (03:50)
[2016-09-21] MEDS: Pantoprazole 40 MG Tab.CR PO SCH (05:03)
[2016-09-21] MEDS ORDERED: Furosemide 40 MG/4 ML VIAL ONE (06:10)
[2016-09-21] MEDS ORDERED: Furosemide 40 MG/4 ML VIAL IVPUSH ONE (06:10)
[2016-09-21] MEDS: Sodium Chloride 0.9% 10 ML Syringe FLUSH SCH ×4 (06:10→11:26)
[2016-09-21] MEDS: Albuterol/Ipratropium 3.0-0.5 MG/3 ML Neb Soln NEB SCH ×2 (06:57→10:52)
[2016-09-21] MEDS ORDERED: Morphine 2 MG/ML Syringe ONE (07:04)
[2016-09-21] MEDS: Morphine 2 MG/ML Syringe IVPUSH PRN ×6 (07:04→12:52)
[2016-09-21] MEDS ORDERED: LORazepam 2 MG/ML MDV IVPUSH PRN (10:07)
[2016-09-21 11:13] VITALS: BP 82/49
--- NOTE | 2016-09-21 11:26 | PN ---
DATE SEEN: 09/21/2016 SUBJECTIVE: This 61-year-old female is seen today for followup. During the night, she suddenly deteriorated rapidly with marked increase in shortness of breath, hypoxia despite high-flow oxygen, increased lethargy, and anxiety. She was found to be quite hypoxic and switched over to BiPAP in order to maintain saturations of greater than 88%. Morphine and Ativan were given for her anxiety. Blood work was drawn and a CT scan of her chest was obtained. No evidence of pulmonary emboli were identified. She has some scattered patchy ground-glass consolidations indicative of possible pneumonia. BNP was elevated at 1470 and her troponin has gone from normal 0.04 yesterday to 0.77 today. She opens her eyes, but otherwise is unresponsive with rapid respirations, blood gas on BiPAP and high-flow oxygen revealed a pH of 7.30, pO2 of 79, pCO2 of 56, and bicarbonate of 27. She has increased crackles and upper airway rhonchi especially in the right lung, the left side has decreased breath sounds, but no wheezes, no rales were identified. Cardiovascular exam revealed a normal S1 and S2 without murmur, rub, or gallop. Abdomen was quite obese, but otherwise unremarkable. There was no peripheral edema. The skin was pale. Her hemoglobin has dropped to 8.8, her white count is normal at 5900 with normal differential. It should be noted that last night prior to the BiPAP, her pH was 7.43, her pO2 was 50 on 12 L, pCO2 was 43, and her bicarb was 28. IMPRESSION: Sudden deterioration presumably from acute myocardial infarction, especially in light of her elevated BNP and elevated troponin with severe chronic oxygen-dependent chronic obstructive pulmonary disease, history of recurrent anemia, type 2 diabetes mellitus, obesity, and history of peripheral neuropathy. PLAN: We discussed treatment options with the patient's dyqki-ld-ntospsbe and family. The patient in the past has refused transfer to [place], has refused workup for her anemia, and recently signed a DNR/DNI statement. I advised the family the probable acute myocardial infarct on top of her other current problems and what would need to be done if in fact, she has a chance of living. At this point, they all agreed that she has refused previous attempts to aggressively treat her and at this time, they feel she would not want that to be accomplished. [facility] and they know that she has adamantly in the past told them that she does not want to go there. Therefore, they feel that the best course of action for her now would be to keep her comfortable. I have talked about hospice and they agreed that they would like to consult them. I have advised her that we would keep her comfortable probably depending on hospice consult would discontinue her BiPAP and switch her to just high-flow oxygen. Decrease many of her oral medications and keep her comfortably sedated so she does not have pain or air hunger associated with hypoxia. They were comfortable with that and consult was placed. We will proceed from there with very poor prognosis. /[id number] 1109 /ROSIE
[2016-09-21] MEDS: Furosemide 80 MG Tab PO SCH (16:04)
[2016-09-21] MEDS: Mometasone Furoate HFA 200 mcg/Puff 13 GM Inhaler INH SCH (16:04)
[2016-09-21] MEDS: Iron Polysaccharides Complex 150 MG Cap PO SCH (16:04)
[2016-09-21] MEDS: Fish Oil/Omega-3 Fatty Acids 1 Gm Cap PO SCH (16:04)
[2016-09-21] MEDS: Cephalexin 500 MG Cap PO SCH (16:05)
[2016-09-21] MEDS: Polyethylene Glycol 3350 Powder 17 GM Packet PO SCH (16:05)
[2016-09-21] MEDS: traMADol 50 MG Tab PO SCH (16:05)
[2016-09-21] MEDS: Acetaminophen 500 MG Tab PO SCH (16:05)
[2016-09-21] MEDS: Lisinopril 2.5 MG Tab PO SCH (16:05)
--- NOTE | 2016-09-23 14:30 | DISCH ---
DISCHARGE DATE: 09/21/2016 DATE OF : 09/21/2016 REASON FOR ADMISSION: This is a single, 61-year-old, female with a longstanding history of severe oxygen-dependent COPD, type 2 diabetes mellitus complicated by peripheral neuropathy, morbid obesity, and recurrent anemias for which she has refused further workup along with a previous history of bladder carcinoma, was admitted with increasing shortness of breath and generalized weakness. She was found to have a significant anemia with hemoglobin down to 6.4 and was therefore admitted for more aggressive therapy. Please see the copy of her H and P for details. Her initial sodium was 134, potassium was elevated at 5.9, chloride of 98, her creatinine was 0.8, BUN of 45. Urinalysis was unremarkable. HOSPITAL COURSE: The patient was admitted initially. We were unable to get any venous access. After multiple tries, surgical consultation for port placement was done. Port was placed on 09/04, and thereafter, the patient was given 2 units of packed red cells. Her hemoglobin came up to 8.1. Her white count remained normal. Platelets were 291,000. Her electrolytes were corrected with IV fluids. Her A1c was 5.8. Liver functions were unremarkable. Total protein 6.5, albumin of 3.9. She remained quite hypoxemic, and high-flow oxygen was used to get her oxygen saturation greater than 90%, usually between 10 and 12 L of oxygen, but this has been a chronic problem. She has also had longstanding history of congestive heart failure. With the transfusion, she developed increasing shortness of breath, and aggressive diuresis was undertaken using both IV Lasix and metolazone. With that, her breathing seemed to improve some. She did develop some right chest wall pain, apparently she says when she was getting on the operating room table. X-rays were done showing no fracture. This took a few days to slowly decrease, and both tramadol and hydrocodone were used for the discomfort over the ensuing days, and with aggressive diuresis, her breathing seemed to improve. Her saturations still were difficult to maintain unless she was on high-flow oxygen between 10 and 12 L/min, but this was felt to be chronic. She required another 2 unit transfusion to keep her hemoglobin up, as it dropped again and was eventually stable around 9.8. It then marlene to 10.6 to 10.8 and pretty much stayed there depending on her fluid status. Long discussion was had with her regarding her ability to stay at home. She has had multiple admissions for recurrent transfusions and her severe COPD with the use of high-flow oxygen. It became apparent that she was not going to be able to stay at home any longer, and eventually, she agreed to longterm placement because she refused any workup for her anemia and refused any suggestion of transfer to [place] for more aggressive therapy for the anemia and her lungs that she would like to be DNR/DNI. group home placement was discussed, and she agreed that would probably be appropriate. Initially [facility] looked at her, but they did not agree to take her. [facility] agreed to take her after a long evaluation, and eventually prescriptions and equipment was ordered for her high-flow oxygen. She continued to have intermittent episodes of shortness of breath and was on aggressive diuretic therapy. She also noticed increase urinary symptoms with frequency and some urgency, and a repeat urinalysis was done showing evidence of cystitis. Culture eventually grew out greater than 100,000 colonies of E. coli. She was started on Macrobid b.i.d. as she was allergic to multiple other medications. Eventually, the E. coli proved to be resistant to that, and we switched over to cephalexin, which the organism was sensitive to, and she tolerated this well. She reluctantly agreed to go to [facility], and arrangements were made for her to go the following day. She had become progressively weaker, and despite physical therapy and occupational therapy, required assistance of one or two. While going to the bathroom, she became weak and slid down. She did strike the back of her head on the edge of her bed, but there was no loss of consciousness. There was an abrasion there, but no other abnormalities were identified. We watched her closely, and she had no neurologic symptoms whatsoever. However, 2 nights later, the night before she was going to the longterm, the patient suddenly became more dyspneic and markedly more short of breath. She became more lethargic, and blood gas revealed a pH is 7.3. She was hypercapnic and hypoxic. BiPAP was started, which improved her oxygen saturation, but she continued to be markedly tachypneic. EKG showed no acute ST- T segment changes, but her troponin marlene from 0.04 up to 0.77, and her BNP marlene to 1470. It was felt she had an acute WA. A long discussion was held with the patient's [id number]-[id number] along with family and friends, and they all agreed that no further aggressive intervention should be initiated. They requested we keep her as comfortable as possible and talked about hospice therapy. Consult was placed with hospice, but before they could arrive, the patient's respirations ceased. She became pulseless and pale. No audible heart tones could be identified, and she was pronounced . FINAL DIAGNOSES: 1. Probable acute myocardial infarction with resultant cardiac arrest. 2. Severe end-stage oxygen-dependent chronic obstructive pulmonary disease. 3. Arteriosclerotic heart disease with a history of chronic congestive heart failure. 4. Morbid obesity. 5. Type 2 diabetes mellitus. 6. Recurrent anemia of undetermined etiology. /[id number] 1403 /ROSIE
== END 2016-09-21 13:05 | disposition expired | DRG 811 ==
LOC: FB.ED 17:45 → FB.MS 19:15 → FB.ICU 09-04 12:30 → OBSVTOIN 09-04 12:30 → FB.MS 09-06 07:37
PROVIDERS: ADMIT Emergency Medicine; ATTEND Family Medicine
PROC: 02HV33Z Insertion of Infusion Device into Superior Vena Cava, Percutaneous Approach (ICD-10-PCS; principal; 2016-09-04)
PROC: 30233N1 Transfusion of Nonautologous Red Blood Cells into Peripheral Vein, Percutaneous Approach (ICD-10-PCS; 2016-09-04)
PROC: B518ZZA Fluoroscopy of Superior Vena Cava, Guidance (ICD-10-PCS; 2016-09-04)
PROC: 30233N1 Transfusion of Nonautologous Red Blood Cells into Peripheral Vein, Percutaneous Approach (ICD-10-PCS; 2016-09-05)
PROC: 30233N1 Transfusion of Nonautologous Red Blood Cells into Peripheral Vein, Percutaneous Approach (ICD-10-PCS; 2016-09-07)
DX: D64.9 Anemia, unspecified (principal); I21.3 ST elevation (STEMI) myocardial infarction of unspecified site; N39.0 Urinary tract infection, site not specified; E66.2 Morbid (severe) obesity with alveolar hypoventilation; Z68.42 Body mass index [BMI] 45.0-49.9, adult; I50.9 Heart failure, unspecified; I25.10 Atherosclerotic heart disease of native coronary artery without angina pectoris; I11.0 Hypertensive heart disease with heart failure; Z87.891 Personal history of nicotine dependence; Z51.5 Encounter for palliative care; B96.20 Unspecified Escherichia coli [E. coli] as the cause of diseases classified elsewhere; Z16.29 Resistance to other single specified antibiotic; W18.30XA Fall on same level, unspecified, initial encounter; Y92.239 Unspecified place in hospital as the place of occurrence of the external cause; S09.90XA Unspecified injury of head, initial encounter; J44.9 Chronic obstructive pulmonary disease, unspecified; E11.42 Type 2 diabetes mellitus with diabetic polyneuropathy; E11.649 Type 2 diabetes mellitus with hypoglycemia without coma; Z79.84 Long term (current) use of oral hypoglycemic drugs; M06.9 Rheumatoid arthritis, unspecified; Z53.29 Procedure and treatment not carried out because of patient's decision for other reasons; K59.00 Constipation, unspecified; Z75.1 Person awaiting admission to adequate facility elsewhere; M19.90 Unspecified osteoarthritis, unspecified site; M54.9 Dorsalgia, unspecified; G89.29 Other chronic pain; Z85.51 Personal history of malignant neoplasm of bladder; Z99.81 Dependence on supplemental oxygen; Z87.01 Personal history of pneumonia (recurrent); K21.9 Gastro-esophageal reflux disease without esophagitis; F41.8 Other specified anxiety disorders; Z88.1 Allergy status to other antibiotic agents; Z88.0 Allergy status to penicillin; Z88.2 Allergy status to sulfonamides; Z79.52 Long term (current) use of systemic steroids
CPT/HCPCS: 36415; 36430; 36600; 71020; 71111; 71275; 80048; 80053; 81001; 82272; 82607; 82728; 82803; 82947; 82962; 83036; 83540; 83550; 83880; 84484; 85014; 85018; 85025; 85027; 85045; 86850; 86900; 86901; 86902; 86920; 86922; 87040; 87086; 87088; 87186; 93005; 94640-76; 94660; 96361; 96372; 96374; 96375; 96376; 97110-GP; 97162-GP; 97166-GO; 99283; A4217; A9270-GY; G0378; J0690; J1642; J1650; J1940; J2060; J2250; J2270; J2704; J7040; J7050; J7620; P9016; Q9967